=== PATIENT | male | born 1950 | race Caucasian/White ===

== ENCOUNTER 2018-10-05 09:32 | Inpatient (IN) | payer MEDICARE ==
[~2018-10-05] VITALS: Ht 177.8 cm; Wt 92.0 kg
[~2018-10-05 09:32] MED LIST: ALBU90OI6 INH; BUDE6HFA INH; CHLO10 PO; CHLO25 PO; GABA300; LORA1; [UNRECOGNIZED DRUG - OTHER]
[2018-10-05] MEDS ORDERED: ALBU90OI61 INH (10:00)
[2018-10-05] MEDS ORDERED: MELA3 PO (10:04)
[2018-10-05] MEDS ORDERED: MAGOXI400 PO (10:04)
[2018-10-05] MEDS ORDERED: STIOLTO RESPIMAT4 GM INH (10:05)
[2018-10-05] MEDS ORDERED: PRAZ1 PO ×2 (10:05→13:34)
[2018-10-05] MEDS ORDERED: VENL150ER PO (10:06)
[2018-10-05 10:10] LABS: BASOPHILS ABSOLUTE AUTO 0.01 K/mm3 (0.00-0.23); BASOPHILS PERCENT AUTO 0 % (0-2); EOSINOPHILS ABSOLUTE AUTO 0.02 K/mm3 (0.00-0.68); EOSINOPHILS PERCENT AUTO 0 % (0-6); Hematocrit 42.1 % (37.0-53.0); Hemoglobin 15.5 g/dL (13.5-17.5); IMMATURE GRAN ABSOLUTE AUTO 0.05 K/mm3 (0.00-0.10); IMMATURE GRAN PERCENT AUTO 1 % (0-1); LYMPHOCYTES ABSOLUTE AUTO 0.72 K/mm3 (0.84-5.20); LYMPHOCYTES PERCENT AUTO 9 % (21-46); MONOCYTES ABSOLUTE AUTO 0.82 K/mm3 (0.16-1.47); MONOCYTES PERCENT AUTO 10 % (4-13); Mean Corpuscular HGB 33.5 pg (26.0-34.0); Mean Corpuscular HGB Conc 36.8 g/dL (31.5-36.5); Mean Corpuscular Volume 91 fL (80-100); Mean Platelet Volume 11.6 fL (9.1-12.4); NEUTROPHILS ABSOLUTE AUTO 6.26 K/mm3 (1.96-9.15); NEUTROPHILS PERCENT AUTO 80 % (41-73); Platelet Count 111 K/mm3 (150-400); RDW Coefficient Variation 11.9 % (11.7-14.2); RDW Standard Deviation 39.8 fL (35.1-46.3); Red Blood Cell Count 4.63 M/mm3 (4.30-5.90); White Blood Cell Count 7.88 K/mm3 (4.00-11.30)
[2018-10-05 10:37] LABS: Alanine Aminotransfer (ALT/SGP 81 U/L (12-78); Albumin, Blood 3.1 g/dL (3.4-5.0); Albumin/Globulin Ratio 1.2 (0.8-1.8); Alk Phos 64 U/L (50-136); Anion Gap 19 mmol/L (6-16); Aspartate Aminotrans (AST/SGOT 96 U/L (12-37); Bilirubin, Total 1.1 mg/dL (0.1-1.0); Blood Urea Nitrogen 10 mg/dL (8-24); Bun/Creatinine Ratio 13.5 (12.0-20.0); CO2, Blood 19 mmol/L (21-32); Calcium, Blood 8.3 mg/dL (8.5-10.1); Chloride, Blood 80 mmol/L (98-108); Creatinine, Blood 0.74 mg/dL (0.60-1.20); Globulin, Blood 2.6 g/dL (2.2-4.0); Glomerular Filtration Rate >60 (60-); Glucose, Blood 100 mg/dL (70-99); Potassium, Blood 4.1 mmol/L (3.5-5.5); Sodium, Blood 118 mmol/L (136-145); Total Protein, Blood 5.7 g/dL (6.4-8.2)
[2018-10-05 13:32] LABS: Troponin I <0.015 ng/mL (0.000-0.040)
[2018-10-05] MEDS ORDERED: B-1100 MG PO (13:33)
[2018-10-05 13:34] LABS: Thyroid Stimulating Hormone 0.938 uIU/mL (0.360-4.800)
[2018-10-05] MEDS ORDERED: IBUP600 PO (13:34)
[2018-10-05 13:40] LABS: Anion Gap 19 mmol/L (6-16); Blood Urea Nitrogen 9 mg/dL (8-24); Bun/Creatinine Ratio 13.3 (12.0-20.0); CO2, Blood 20 mmol/L (21-32); Chloride, Blood 80 mmol/L (98-108); Creatinine, Blood 0.68 mg/dL (0.60-1.20); Glomerular Filtration Rate >60 (60-); Glucose, Blood 162 mg/dL (70-99); Potassium, Blood 3.7 mmol/L (3.5-5.5); Sodium, Blood 119 mmol/L (136-145)
[2018-10-05 17:12] LABS: Anion Gap 14 mmol/L (6-16); Blood Urea Nitrogen 8 mg/dL (8-24); Bun/Creatinine Ratio 13.7 (12.0-20.0); CO2, Blood 20 mmol/L (21-32); Calcium, Blood 7.7 mg/dL (8.5-10.1); Chloride, Blood 83 mmol/L (98-108); Creatinine, Blood 0.58 mg/dL (0.60-1.20); Glomerular Filtration Rate >60 (60-); Glucose, Blood 192 mg/dL (70-99); Potassium, Blood 3.7 mmol/L (3.5-5.5); Sodium, Blood 117 mmol/L (136-145)
[2018-10-05] MEDS ORDERED: STRIVERDI RESPIM4 GM INH (17:14)
--- NOTE | 2018-10-05 18:44 | NUR ---
SHIFT SUMMARY Assumed care of pt upon arrival to unit at 1445. Pt arrived to unit accompanied by emergency RN. Pt transferred from ED gurney to PCU bed with one person assist. Tolerated activity well. Pt states he is having pain. HR elevated, averaging between 125 and 135. Pain meds per orders. Cardizem per orders. Pt is forgetful and requires reeducation and reinforcement before he understands. Pt answered questions for admission. States he lives at "[facility] in [place]." States he receives medications from [facility]. Records requested from [facility] for imaging studies and current prescribed medications. Medications received. No imagaging reports received from [facility]. Pt states he drinks "Three 40 oz beers a day". States has last drink was at 9 am. Pt states he has been "surviving off beer" for the last two weeks, as he has not been able to tolerate food or drink due to abdominal pain. Pt states he has not had a bowel movement in several days, and estimates it may have been "8 or 9 days" since last BM. Call placed to Dr Mark due to critical low sodium. Also clarified order for IV diltiazem as it was ordered as a scheduled medication instead of PRN. Discussed pain control with provider. New orders given. Pt has been on room air since arrival to unit. Atrial fibrillation per telemetry, with rate now averaging between 115 and 125. Pt has not been OOB since arrival to unit. Bed in lowest position. Call light in reach. Bed alarm on. Will continue to closely monitor until care handoff and bedside report with oncoming RN.
--- NOTE | 2018-10-05 18:53 | NUR ---
NPO Pt has been NPO except for ice chips. Tolerating ice chips well at this time.
--- NOTE | 2018-10-05 21:09 | NUR ---
PM NOTE. ASSUMED CARE OF PT APROX 1900, PT IS A&Ox2, PT UNABLE TO STATE THE DATE. PT WAS ADDMITTED FOR AFIB RVR AND ALSO HAS PANCREATITIS DUE TO ETOH ABUSE. PT STATES HE IS HAVING A 7/10 ABD PAIN, PT WAS MEDICATED PER EMAR AT 1814 BUT PT STATED THAT THIS WORE OFF BEFORE HE WAS DUE FOR ANOTHER DOSE. CALLED PROVIDER TO CHANGE FREQUENCY. TELE INTACT, AFIB 100'S-120'S. PT'S BP 171/101. PT HAS TRACE EDEMA TO HIS BLLE. L/S CLEAR T/O AND DIM IN THE BASES. PT IS ON RA W/O2 SATS >92%. BT PRESENT AND HYPOACTIVE, ABD IS MOD DISTENDED, FIRM AND VERY TENDER TO PALP IN ALL QUADRANTS, PT STATED HE HAS NOT HAD A BM IN 8-9 DAYS. PT'S CURRENT CWIA IS 14, PT WAS MEDICATED PER EMAR. WILL CONTINUE TO MONITOR.
[2018-10-05 23:51] LABS: Anion Gap 11 mmol/L (6-16); Blood Urea Nitrogen 7 mg/dL (8-24); CO2, Blood 24 mmol/L (21-32); Calcium, Blood 7.1 mg/dL (8.5-10.1); Chloride, Blood 84 mmol/L (98-108); Creatinine, Blood 0.64 mg/dL (0.60-1.20); Glomerular Filtration Rate >60 (60-); Glucose, Blood 223 mg/dL (70-99); Potassium, Blood 3.4 mmol/L (3.5-5.5); Sodium, Blood 119 mmol/L (136-145)
--- NOTE | 2018-10-06 06:17 | NUR ---
SHIFT SUMMARY. PT HAS BEEN TREATED FOR ETOH W/D AND PANCREATITIS PAIN PER EMAR. PT HAS BEEN HYPERTENSIVE AND HIS HR HAS BEEN ELEVATED DUE TO AFIB RVR. PT HAS BEEN MEDICATED PER EMAR WITH LITTLE RESULTS IN REGARDS TO HIS BP. PROVIDER WAS CALLED MULTIPLE TIMES FOR ORDERS FOR HR AND BP. PT WAS MEDICATED PER EMAR. CURRENTLY PT'S BP IS 139/94, HR 114. PT HAS BEEN INCONT OF URINE MULITPLE TIMES THIS SHIFT. CALL LIGHT IN REACH, BED IS LOCKED AND LOW WILL CONTINUE TO MONITOR UNTIL REPORT IS GIVEN TO ONCOMING RN.
[2018-10-06 08:20] LABS: BASOPHILS ABSOLUTE AUTO 0.01 K/mm3 (0.00-0.23); BASOPHILS PERCENT AUTO 0 % (0-2); EOSINOPHILS PERCENT AUTO 0 % (0-6); Hematocrit 42.3 % (37.0-53.0); Hemoglobin 15.7 g/dL (13.5-17.5); IMMATURE GRAN ABSOLUTE AUTO 0.05 K/mm3 (0.00-0.10); IMMATURE GRAN PERCENT AUTO 1 % (0-1); LYMPHOCYTES ABSOLUTE AUTO 0.52 K/mm3 (0.84-5.20); LYMPHOCYTES PERCENT AUTO 6 % (21-46); MONOCYTES ABSOLUTE AUTO 0.85 K/mm3 (0.16-1.47); MONOCYTES PERCENT AUTO 10 % (4-13); Mean Corpuscular HGB 33.1 pg (26.0-34.0); Mean Corpuscular HGB Conc 37.1 g/dL (31.5-36.5); Mean Corpuscular Volume 89 fL (80-100); Mean Platelet Volume 11.6 fL (9.1-12.4); NEUTROPHILS ABSOLUTE AUTO 6.92 K/mm3 (1.96-9.15); NEUTROPHILS PERCENT AUTO 83 % (41-73); NRBC ABSOLUTE 0.02 K/mm3 (0.00-0.02); NRBC Auto 0.2 /100 WBC (0.0-0.2); Platelet Count 109 K/mm3 (150-400); RDW Standard Deviation 39.2 fL (35.1-46.3); Red Blood Cell Count 4.75 M/mm3 (4.30-5.90); White Blood Cell Count 8.35 K/mm3 (4.00-11.30)
[2018-10-06 08:42] LABS: Alanine Aminotransfer (ALT/SGP 63 U/L (12-78); Albumin, Blood 2.7 g/dL (3.4-5.0); Albumin/Globulin Ratio 1.1 (0.8-1.8); Alk Phos 59 U/L (50-136); Anion Gap 11 mmol/L (6-16); Aspartate Aminotrans (AST/SGOT 66 U/L (12-37); Bilirubin, Total 1.4 mg/dL (0.1-1.0); Blood Urea Nitrogen 7 mg/dL (8-24); Bun/Creatinine Ratio 13.8 (12.0-20.0); CO2, Blood 23 mmol/L (21-32); Calcium, Blood 7.5 mg/dL (8.5-10.1); Chloride, Blood 87 mmol/L (98-108); Creatinine, Blood 0.51 mg/dL (0.60-1.20); Globulin, Blood 2.5 g/dL (2.2-4.0); Glomerular Filtration Rate >60 (60-); Glucose, Blood 145 mg/dL (70-99); Sodium, Blood 121 mmol/L (136-145); Total Protein, Blood 5.2 g/dL (6.4-8.2); Troponin I <0.015 ng/mL (0.000-0.040)
[2018-10-06 10:48] LABS: International Normalized Ratio 1.01; Prothrombin Time Results 10.7 Sec (9.7-11.5)
[2018-10-06 16:11] LABS: Anion Gap 8 mmol/L (6-16); Blood Urea Nitrogen 6 mg/dL (8-24); Bun/Creatinine Ratio 9.4 (12.0-20.0); CO2, Blood 25 mmol/L (21-32); Calcium, Blood 7.5 mg/dL (8.5-10.1); Chloride, Blood 88 mmol/L (98-108); Creatinine, Blood 0.64 mg/dL (0.60-1.20); Glomerular Filtration Rate >60 (60-); Glucose, Blood 162 mg/dL (70-99); Potassium, Blood 3.6 mmol/L (3.5-5.5); Sodium, Blood 121 mmol/L (136-145)
--- NOTE | 2018-10-06 19:45 | NUR ---
Called to meet with patient he is feeling isolated and expresses some fear. Pt tremulous , belching and photosensitive, He denies startle response. He is able to express some of his needs but repeats himself. Pt chest is flushed. He states he fears vomiting and that he is getting worse. Review strategies of care with nursing. pt states sleeping more but wakes up frequently. Nursing will update CIWA scoring and consider polypharmacy withdrawl care. May need additional nasuea meds and increased dose or frequency on PRN meds. May need ICU care.
--- NOTE | 2018-10-06 22:01 | NUR ---
SHIFT SUMMARY Pt slept for majority of shift. HR and response to IV push cardizem discussed with Dr Mark this morning. Cardizem drip ordered by provider. This afternoon, this RN called Dr Mark and discussed heart rate and cardizem titration. Telephone order given for cardiology consultation. This RN called Dr Redd at 1715 to notify, however provider was no longer available for routine consultation. Consult notified to Olga at answering service. Bedside report given to Mignon FAM.
--- NOTE | 2018-10-06 22:18 | NUR ---
PM NOTE. ASSUMED CARE OF PT APROX 1900, PT IS A&O TO SELF AND KNOWS HE IS IN THE HOSPTIAL, PT UNABLE TO STATED THE DATE/YEAR. PT'S ETOH CWIA'S HAVE INCREASED FROM PREVIOUS SHIFT. PALLIATIVE CARE RN VISITED PT TO PROVIDE EMOTIONAL SUPPROT AND ANXIETY RELIEF, PT'S ANXIETY WAS VERY HIGH AT THE TIME AND PT WAS UNABLE TO HOLD A CONVERSATION, THIS RN MEDICATED PT PER EMAR/CWIA PROTOCOL, PT'S CWIA WAS 22. THIS APPEARED TO HELP PT'S ANXIETY AND ALLOW PT TO RELAX AND FALL SLEEP. TELE INTACT, AFIB IN THE 110'S-120'S PT CURRENTLY ON CARDIZEM GTT AT 15ML/HR, WILL TITRATE HR INDICATES. PT'S BP 146/88. NO EDEMA NOTED ON ASSESSMENT. L/S DIM T/O PT IS ON 3L NC AT 96%, PT IS NORMALLY ON RA AT HOME, WILL MONITOR AND TITRATE O2 SATS ALLOW. BT PRESENT AND HYPOACTIVE, ABD IS MOD DISTENDED SLIGHTLY FIRM AND TENDER TO PALP, PT STATES THE PAIN IS "NOT BAD LAST NIGHT." CALL LIGHT IN REACH, BED IS LOCKED AND LOW WILL CONTINUE TO MONITOR.
[2018-10-06 23:41] LABS: Anion Gap 8 mmol/L (6-16); Blood Urea Nitrogen 5 mg/dL (8-24); Bun/Creatinine Ratio 8.3 (12.0-20.0); CO2, Blood 25 mmol/L (21-32); Calcium, Blood 7.1 mg/dL (8.5-10.1); Chloride, Blood 94 mmol/L (98-108); Glomerular Filtration Rate >60 (60-); Glucose, Blood 138 mg/dL (70-99); Potassium, Blood 3.7 mmol/L (3.5-5.5); Sodium, Blood 127 mmol/L (136-145)
--- NOTE | 2018-10-07 03:15 | NUR ---
PT UPDATE. DURING ROUNDING THIS RN NOTED THAT PT'S WORK OF BREATHING HAD INCREASED AND UPPER AIRWAY WHEEZING WAS NOTED. RESPIRATORY ASSESSMENT WAS DONE AND RT WAS CALLED. NEW CRACKELS IN THE LOWER AND RIGHT MID BASE WERE NOTED. PT IS ON 2LNC AT 94%, BREATHING TREATMENT WAS GIVEN TO PT. ALSO IT WAS NOTED THAT THE PT'S ARMS AND HANDS WERE MOTTLING AND COOL, WARM BLANKETS WERE WRAPPED AROUND PT'S ARMS/HANDS. WILL CONTINUE TO MONITOR.
--- NOTE | 2018-10-07 06:49 | NUR ---
SHIFT SUMMARY. PT HAS BEEN MEDICATED FOR PAIN AND CWIA PER EMAR/PROTOCOL ORDERS. PT HAS SLEPT WELL T/O SHIFT. PT WILL C/O OF 10/10 PAIN WITH EYES CLOSED AND BEING UNABLE TO OPEN THEM, PT WILL ALSO C/O OF SEVERE ANXIETY WHILE FALLING ASLEEP TALKING TO STAFF. PT HAS BEEN INCONT OF URINE ALL SHIFT. PT'S WORK OF BREATHING HAS INCREASED, COARSE CRACKLES ARE HEARD IN THE PT'S LOWER LOBES AND EXP WHEEZES IN THE UPPER LOBES AND UPPER AIRWAY/GLOTTIC WHEEZES WELL. PT IS ON 1-2 L TO KEEP O2 SATS >90%. PT IS ON CARDIZEM GTT AT 15MLS/HR, HR IN THE 90'S-100'S. PT HAS NS RUNNING AT 100MLS/HR. PT'S SECRETIONS HAVE INCREASED FROM PREVIOUS SHIFT, PT HAS WEAK COUGH AND IS UNABLE TO COUGH THEM UP/OUT AT TIMES. CALL LIGHT IN REACH, BED IS LOCKED AND LOW WILL CONTINUE TO MONITOR UNTIL REPORT IS GIVEN TO ONCOMIGN RN .
[2018-10-07 08:22] LABS: BASOPHILS ABSOLUTE AUTO 0.02 K/mm3 (0.00-0.23); BASOPHILS PERCENT AUTO 0 % (0-2); EOSINOPHILS ABSOLUTE AUTO 0.01 K/mm3 (0.00-0.68); EOSINOPHILS PERCENT AUTO 0 % (0-6); Hematocrit 44.8 % (37.0-53.0); Hemoglobin 15.4 g/dL (13.5-17.5); IMMATURE GRAN ABSOLUTE AUTO 0.07 K/mm3 (0.00-0.10); IMMATURE GRAN PERCENT AUTO 1 % (0-1); LYMPHOCYTES ABSOLUTE AUTO 0.61 K/mm3 (0.84-5.20); LYMPHOCYTES PERCENT AUTO 6 % (21-46); MONOCYTES ABSOLUTE AUTO 1.18 K/mm3 (0.16-1.47); MONOCYTES PERCENT AUTO 12 % (4-13); Mean Corpuscular HGB 32.8 pg (26.0-34.0); Mean Corpuscular HGB Conc 34.4 g/dL (31.5-36.5); Mean Platelet Volume 11.6 fL (9.1-12.4); NEUTROPHILS ABSOLUTE AUTO 8.02 K/mm3 (1.96-9.15); NEUTROPHILS PERCENT AUTO 81 % (41-73); NRBC ABSOLUTE 0.03 K/mm3 (0.00-0.02); NRBC Auto 0.3 /100 WBC (0.0-0.2); Platelet Count 113 K/mm3 (150-400); RDW Coefficient Variation 12.6 % (11.7-14.2); RDW Standard Deviation 44.4 fL (35.1-46.3); Red Blood Cell Count 4.69 M/mm3 (4.30-5.90); White Blood Cell Count 9.91 K/mm3 (4.00-11.30)
[2018-10-07 08:24] LABS: Mean Corpuscular Volume 96 fL (80-100)
[2018-10-07 08:56] LABS: Anion Gap 8 mmol/L (6-16); Blood Urea Nitrogen 8 mg/dL (8-24); Bun/Creatinine Ratio 12.2 (12.0-20.0); CO2, Blood 23 mmol/L (21-32); Calcium, Blood 7.6 mg/dL (8.5-10.1); Chloride, Blood 95 mmol/L (98-108); Creatinine, Blood 0.66 mg/dL (0.60-1.20); Glomerular Filtration Rate >60 (60-); Glucose, Blood 131 mg/dL (70-99); Potassium, Blood 4.2 mmol/L (3.5-5.5); Sodium, Blood 126 mmol/L (136-145)
--- NOTE | 2018-10-07 10:42 | NUR ---
ECHOCARDIOGRAM COMPLETED
--- NOTE | 2018-10-07 10:51 | NUR ---
BEGINING OF SHIFT: ASSUMED CARE OF PT AT 0700, RECEIVED REPORT FROM EMILY FAM. UPON ENTERING ROOM PT WAS LETHARGIC, HOWEVER, HE RESPONDED TO VERBAL STIMULI. PT LUNG SOUNDS WERE DIMINISHED AND WAS ON 1 L OF 02 WITH OXYGEN SATURATION ABOVE 90%. PT IS ON STRICT NPO STATUS AND ORAL MEDICATIONS WERE SWITCHED TO IV, DUE TO THE INCREASE IN LIPASE LEVELS. PT WAS AMBULATED TO CHAIR, WHICH REQUIRED 3 PERSON MAX ASSIST. PT WAS UNABLE TO FOLLOW DIRECTIONS WELL, AND COMPLAINED OF NAUSEA AFTER TRANSFER. ZOFRAN WAS GIVEN SHORTLY AFTER AND PT STATED THAT HIS NAUSEA HAD BEEN RESOLVED. PT EXPERIENCED DYSPNEA WITH EXCERTION AND REQUESTED TO HAVE A BREATHING TX. PT IS CURRENTLY DENYING AN PAIN AT THIS TIME AND HAS REQUIRED NO PAIN MEDS THIS MORNING. PT IS STILL ON THE CARIDEM DRIP AND IS RUNNING AFIB WITH HR AVERAGING BETWEEN 80-90 BPM. PT BP HAS REMAINED STABLE. WILL CONTINUE TO MONITOR FOR CHANGES.
--- NOTE | 2018-10-07 15:53 | NUR ---
Spiritual care visit attempted. Upon receiving a referral for patient, I attempted to visit. Patient was sleeping and could not be awakened any longer then for him to ask me to come back later. I will continue to remain available to patient and family.
--- NOTE | 2018-10-07 18:02 | NUR ---
END OF SHIFT: PT HAS BEEN GETTING MORE CONFUSED IN THE PAST HOUR. PT STATES " I NEED TO GET TO A HOSPITAL". ATTEMPTED TO REORIENTED PT WHICH WAS UNSUCCESSFUL. PT B/P REMAINS WITHIN NORMAL LIMITS. PT IS CURRENTLY IN A-FIB WITH HR RUNNING IN THE 90'S PER FOUNDRY PATTERNMAKER. EARLY IN THE SHIFT PT WAS ON 10 gtt ON A CARDIZEM DRIP FOR A FEW HOURS WITH HR IN THE 70'S. HOWEVER, PT IS NEEDING TO BE TURNED UP TO 15 gtt DUE TO HR INCREASING TO THE 90'S. PT IS ON 1.5 LITERS OF 02 VIA NC AND COMPLANING OF BEING SOB, HOWEVER 02 STAURATION REMAIN AT ABOVE 95% PT IS DENYING ANY PAIN AT THIS TIME. PT WAS EVALUATED BY PHYSICAL THERPAY TODAY, WHICH PLACED HIM A LIFT PT. PT HAS BEEN INCONTINENT DURING SHIFT AND HAS BEEN TRYING TO GET OUT OF BED. PT STATES " I NEED MEDICATION FOR MY ANXIEY". WILL MEDICATE PER EMAR. WILL CONTINUE TO MONITOR UNTIL REPORT IS GIVEN TO ONCOMING SHIFT. BED AT LOWEST LEVEL, BED ALARM ON, CALL LIGHT WITHIN REACH.
--- NOTE | 2018-10-07 18:56 | NUR ---
CARDIZEM DRIP Cardizem titration done by this RN. At this time, pt is on 15 mg/hr of cardizem.
[2018-10-08 04:18] LABS: BASOPHILS ABSOLUTE AUTO 0.02 K/mm3 (0.00-0.23); BASOPHILS PERCENT AUTO 0 % (0-2); EOSINOPHILS PERCENT AUTO 0 % (0-6); Hematocrit 37.9 % (37.0-53.0); Hemoglobin 13.1 g/dL (13.5-17.5); IMMATURE GRAN ABSOLUTE AUTO 0.06 K/mm3 (0.00-0.10); IMMATURE GRAN PERCENT AUTO 1 % (0-1); LYMPHOCYTES ABSOLUTE AUTO 0.49 K/mm3 (0.84-5.20); LYMPHOCYTES PERCENT AUTO 5 % (21-46); MONOCYTES ABSOLUTE AUTO 1.34 K/mm3 (0.16-1.47); MONOCYTES PERCENT AUTO 14 % (4-13); Mean Corpuscular HGB 33.2 pg (26.0-34.0); Mean Corpuscular HGB Conc 34.6 g/dL (31.5-36.5); Mean Corpuscular Volume 96 fL (80-100); Mean Platelet Volume 11.4 fL (9.1-12.4); NEUTROPHILS ABSOLUTE AUTO 8.01 K/mm3 (1.96-9.15); NEUTROPHILS PERCENT AUTO 81 % (41-73); Platelet Count 103 K/mm3 (150-400); RDW Coefficient Variation 12.8 % (11.7-14.2); RDW Standard Deviation 45.5 fL (35.1-46.3); Red Blood Cell Count 3.95 M/mm3 (4.30-5.90); White Blood Cell Count 9.92 K/mm3 (4.00-11.30)
[2018-10-08 04:40] LABS: Alanine Aminotransfer (ALT/SGP 51 U/L (12-78); Albumin, Blood 2.3 g/dL (3.4-5.0); Albumin/Globulin Ratio 0.9 (0.8-1.8); Alk Phos 58 U/L (50-136); Anion Gap 6 mmol/L (6-16); Aspartate Aminotrans (AST/SGOT 43 U/L (12-37); Bilirubin, Total 0.8 mg/dL (0.1-1.0); Blood Urea Nitrogen 10 mg/dL (8-24); CO2, Blood 25 mmol/L (21-32); Calcium, Blood 7.4 mg/dL (8.5-10.1); Chloride, Blood 98 mmol/L (98-108); Creatinine, Blood 0.62 mg/dL (0.60-1.20); Globulin, Blood 2.7 g/dL (2.2-4.0); Glomerular Filtration Rate >60 (60-); Glucose, Blood 130 mg/dL (70-99); Potassium, Blood 4.3 mmol/L (3.5-5.5); Sodium, Blood 129 mmol/L (136-145)
--- NOTE | 2018-10-08 06:47 | NUR ---
SHIFT SUMMARY PATIENT REMAINED STABLE DURING EVP HEAD OF [employer] EXPERIENCE STRATEGY, PATIENT RESPOND TO PAIN AND VERBAL STIMULI. REMAINED ON AFIB WITH HEART RATE ON HIGH 70'S TO LOW 80'S. CLEAR ON UPPER LOBES AND DIMINISHED ON LOWER LOBES,OCCATIONAL COUGH, BED LOCK AND LOW POSITION, CALL LIGHT WITHIN REACH.
--- NOTE | 2018-10-08 17:01 | NUR ---
PT HAS BEEN A/O X4 SINCE BEING TRANSFERED TO OUR FLOOR AT 1555. BP'S HAVE BEEN APROXIMATELY 80'S OVER 50'S SINCE SURGERY AT 1300, PT IS NOT SYMPTOMATIC, NO LIGHTHEADEDNESS OR NO DIZZYNESS. PT'S PAIN HAS BEEN MINIMAL WITH REST, AND A 5 WITH MOVEMENT. FINE WHEEZES WITH EXPIRATION ON LEFT SIDE, RIGHT SIDE CLEAR. O2 SATURATION 94% WITH 1.5L. BED IN LOWEST POSITON, CALL LIGHT IN REACH, PT ORIENTED TO SAFETY PROTOCOL.
--- NOTE | 2018-10-08 18:29 | NUR ---
PT HAS BEEN LETHARGIC BUT ALERT AND ORIENTED ALL DAY, WITH BOUTS OF CONFUSION. PT HAS BEEN WITHOUT A DRINK SINCE 10/05/18 AT 9AM. AROUND 2PM PT BEGAN LOOKING FOR ALCOHOL, AND CIWA GOT ABOVE 8 FOR THE FIRST TIME, PT WAS GIVEN 1MG OF ATIVAN AND IS ALLOWED TO HAVE 1 BEER WITH EACH MEAL. PT ASKED FOR HIS FIRST DOSE OF FENTANYL AT 1730, OTEHRWISE PT HAS BEEN PAIN FREE. DOING Q2 TURNS TO PREVENT BREAKDOWN. PT WAS STARTED ON ORAL METOPROLOL AND TITRATED OFF THE CARDIZEM DRIP AT 1800, HAS BEEN IN THE 80'S MOST OF THE DAY. BED IN LOWEST POSITION, CALL LIGHT IN REACH, PT ORIENTED TO SAFETY PROTOCOL.
--- NOTE | 2018-10-09 06:14 | NUR ---
SHIFT SUMMARY: PATIENT REMAINES STABLE THROUGHT THE SHIFT, REMAINED ON AFIB WITH HEART RATE OF 95. PRODUCTIVE COUGH WITH GREEN SPUTUM, BED LOCK, LOW IN POSITION AND CALL LIGHT WITHIN REach.
--- NOTE | 2018-10-09 16:55 | NUR ---
PT VERY SOMNOLENT BUT AROUSABLE WITH VERBAL INITIATION. PT HAS BEEN REPOSITIONED EVERY TWO HOURS TO PREVENT SKIN BREAKDOWN, CURRENTLY HAS REDNESS ON BUTTOCKS, ABLE TO CATHY. PT IS INCONTINENT. PT'S CIWA HAS BEEN BELOW 8 ALL DAY, FREE OF HALLUCINATIONS, DELUSIONS, VOICES, IRRITATION TO LIGHT, BUT OVERALL PRESENTATION IS DECONDITIONING. CRACKLES IN LUNGS HAVE BEEN GETTING WORSE EVEN WITH TCDB, PO LASIX, AND IS. PT WAS GIVEN METOPROLOL AT 1100, HEART RATE HAS BEEN IN THE 110'S TO 120'S SINCE 1430, DR NOTIFIED. DR. MARCIAL ORDERED IV LASIX 40MG BID. PT'S STRENGTH APPEARS TO BE DECONDITIONING WITH LIMITED MOVEMENT. IN BED EXERCISES HAVE BEEN PERFORMED WITH STAFF. CALL LIGHT IN REACH, BED IN LOWEST POSITION, BED ALARM ON, PT ORIENTED TO SAFETY PRECAUTIONS.
--- NOTE | 2018-10-09 20:50 | NUR ---
PROVIDER CONTACTED PT WITH HEART RATE TRENDING UP, CURRENTLY SUSTAINING WITH AN AVERAGE OF 146. MICHELLE STOCKTON CONTACTED AND ORDERS RECEIVED FOR METOPROLOL 5 MG IVP NOW AND Q4 PRN FOR HR SUSTAINING 120 BPM. WILL ADMINISTER AND CONTINUE MONITORING.
[2018-10-10 04:27] LABS: Anion Gap 5 mmol/L (6-16); Blood Urea Nitrogen 17 mg/dL (8-24); Bun/Creatinine Ratio 25.9 (12.0-20.0); CO2, Blood 34 mmol/L (21-32); Calcium, Blood 8.1 mg/dL (8.5-10.1); Chloride, Blood 95 mmol/L (98-108); Creatinine, Blood 0.66 mg/dL (0.60-1.20); Glomerular Filtration Rate >60 (60-); Glucose, Blood 135 mg/dL (70-99); Magnesium, Blood 2.2 mg/dL (1.6-2.4); Potassium, Blood 4.1 mmol/L (3.5-5.5); Sodium, Blood 134 mmol/L (136-145)
--- NOTE | 2018-10-10 06:14 | NUR ---
SHIFT SUMMARY- PT HAS REMAINED ABLE TO ANSWER ALL ORIENTATION QUESTIONS APPROPRIATELY, BUT CONTINUES TO HAVE SOMNOLENCE AND REQUIRES A LOT OF ENCOURAGEMENT TO STAY AWAKE FOR ASSESSMENT. PT CONTINUES TO HAVE VERY SLURRED SPEECH THAT IS DIFFICULT TO UNDERSTAND AT TIMES. PT HAS BEEN PLEASANT AND COOPERATIVE WITH CARE. HEART RHYTHM REMAINS IN A-FIB WITH A RAPID HEART RATE THAT DECREASES TEMPORARILY WITH IV LOPRESSOR BUT STEADILY INCREASES TO THE 130-140'S. ALL OTHER VITAL SIGNS STABLE. PT MEDICATED ONCE FOR PAIN TO ABDOMEN AND ONCE FOR NAUSEA THAT DECREASED WITH ORDERED MEDICATIONS. PT HAS RESTED THROUGHOUT MOST OF THE NIGHT, BUT WAKES FOR CARE AND QUICKLY FALLS BACK TO SLEEP. PT TOLERATES PILLS WHOLE IN APPLESAUCE. TOLERATES SIPS OF FLUIDS WITHOUT STRAW WELL. REMAINS INCONTINENT OF URINE THROUGHOUT SHIFT. NO OTHER CHANGES NOTED FROM INITIAL ASSESSMENT. WILL CONTINUE TO MONITOR AND REPORT TO ONCOMING SHIFT RN. BED IN LOW POSITION, CALL LIGHT IN REACH. BED ALARM SET FOR SAFETY.
--- NOTE | 2018-10-10 11:20 | NUR ---
Spiritual care visit conducted. Patient is still unable to carry on much of a conversation but patient was able to answer affirmatively when asked if he would like me to pray for him. Based on the referral I received asking for help in dealing with fear of end of life, I prayed along those lines. I prayed about areas of forgiveness, Gods love and acceptance and about peace. Patient responded well and said, "Thanks" after the prayer. I will continue to remain available to patient and family.
--- NOTE | 2018-10-10 15:44 | NUR ---
AFIB ON TELEMETRY RATE 140s-160s. IV METOPROLOL GIVEN WITH MINIMAL RESPONSE. ADDITIONAL DOSE OF PO METOPROLOL GIVEN. RATE CONTINUES TO STAY 130s-160s. DR. MARCIAL NOTIFIED, ORDER FOR AMIODARONE GIVEN. AMIODARONE BOLUS AND GTT INITIATED. PT CONTINUES TO BE SOMNOLENT, BUT AROUSES TO VERBAL STIMULI. NEW IV PLACED BY AD FAM. CONTINUES TO BE TACHYPNEIC WITH SHALLOW RESPIRATIONS. WEAK COUGH NOTED. OXYGEN SATURATIONS 85-89%, OXYGEN INCREASED TO 2L. PT SLOW TO RESPOND AND SLOW TO FOLLOW COMMANDS. DR. MARCIAL NOTIFIED, NEW ORDERS RECEIVED.
[2018-10-10 15:54] LABS: PCO2 Arterial 63.9 mmHg (35-45); PO2 Arterial 64.7 mmHg (80-100); pH Blood Arterial 7.39 (7.35-7.45)
--- NOTE | 2018-10-10 18:36 | NUR ---
SHIFT SUMMARY PT STARTED DAY MORE LUCID THAN HE WAS AT THE END OF SHIFT YESTERDAY. HAS BEEN ABLE TO FOLLOW COMMANDS WITH SHORT DIRECT RESPONSES, BUT PT HAS BECOME INCREASINGLY SOMNOLENT THROUGHOUT SHIFT. PT HAS BECOME MORE DIAPHORETIC, AND LUNG CR HAVE INCREASING COARSE CRACKLES THROUGHOUT. PT HAS BEEN ABLE TO TAKE PO MEDICATION WITH APPLESAUCE ALL DAY UNTIL NIGHT MEDS. PT WAS MORE SOMNOLENT AND APPEARED TO BE A SWALLOW RISK AT THIS TIME. PT WAS PLACED ON BIPAP FOLLOWING ABG WITH ELEVATED CO2. ABG WILL BE REDONE FOLLOWING 1 HOUR ON BIPAP. TELE HAS BEEN IN THE 140'S, METOPROLOL IS CURRENTLY 100MG BID, WITH IV METOPROLOL Q4PRN FOR RELIEF, 4 DOSES WERE GIVEN TODAY. PT HAS BEEN GIVEN Q2 TURNS FOR PREVENTION OF BREAKDOWN, INCONTINENT OF STOOL AND URINE, STILL ON BM, PT GIVEN 2 DOSES OF LACTULOSE TODAY. PENILE EDEMA AND GROIN REDNESS HAS IMPROVED. BUE EDEMA. CIWA SCORES HAVE BEEN BETWEEN 3-6 ALL SHIFT. BED IN LOWEST POSITION, CALL LIGHT IN REACH, PT ORIENTED MUCH POSSIBLE TO FALL PRECAUTIONS.
[2018-10-10 19:11] LABS: PCO2 Arterial 59.7 mmHg (35-45); PO2 Arterial 86.7 mmHg (80-100); pH Blood Arterial 7.42 (7.35-7.45)
--- NOTE | 2018-10-10 19:50 | NUR ---
PT ARRIVES TO ICU 12 VIA BED FROM PCU 8 FOR AFIB WITH RVR, AMS, AND DECLINING RESPIRATORY STATUS. PT IS NOTED WITH GENERALIZED MOTTLING ON TRANSFER TO ICU BED, POSTERIOR IS HOT TO TOUCH, TEMPORAL TEMP IS 101.[address] TEMP PROBE AMADOR FOR HOURLY OUPUT AND CORE TEMP MONITORING. HR NOTED 130-140S ON MONITOR, AFIB, HEART SOUNDS DISTANT, BP 129/78, PULSES DIFFICULT TO PALPATE X [address] PRESSURES 16/7, FIO2 35%, RESP RATE HIGH TEENS, TIDAL VOLUMES ON BIPAP READ NEAR 500 HOWEVER IT ALSO REGISTERS A LEAK GREATER THAN 50 LITERS/MINUTE, PT'S INSPIRATORY PHASE IS VERY SHORT AND THEN HE APPEARS TO EXHALE AGAINST BIPAP MASK CAUSING A BRIEF INCREASED LEAK, SATS ARE MID 90S, UPPER LOBES ARE CLEAR COARSE/DIM MID TO BASES BILAT. ABD DISTENDED, HYPOACTIVE BOWEL TONES, ABD SEVERELY DISTENDED, FIRM TO PALPATION BUT NO GRIMACING OR GAURDING WITH PALPATION. ATTENDS IN PLACE, INCONTINENCE OF URINE NOTED. WILL CALL MICHELLE STOCKTON NP REGARDING CURRENT PT PRESENTATION.
--- NOTE | 2018-10-10 19:54 | NUR ---
DISCUSSED CONTINUED TACHYCARDIA AND NEED FOR BIPAP WITH PROVIDER. NEW ORDERS RECEIVED. ORDER FOR TRANSFER TO ICU RECEIVED. PT ON BIPAP IN ROOM. HEART RATE CONTINUES TO BE IN THE 160s-170s. MOTTLING NOTED TO BILATERAL LEGS. CARDIZEM IV PUSH ADMINISTERED X1. HEART RATE 120s AND BP 120s/80s. REPORT CALLED TO PAT FAM IN ICU. PT TRANSFERED VIA BED ON BIPAP TO ICU12 WITH BELONGINGS.
--- NOTE | 2018-10-10 20:00 | NUR ---
TEMP PROBE AMADOR PLACED, CORE TEMP 103.6 AND CONTINUING TO INCREASE AT THIS TIME.
--- NOTE | 2018-10-10 20:10 | NUR ---
CALL PLACED TO MICHELLE STOCKTON OIL ANALYST REGARDING PT GENERALIZED MOTTLING, ELEVATED TEMP, UP TO 104 AT THIS TIME, WELL PT WITH SMALL FAINT MOAN TO DEEP STERNAL RUB OTHERWISE NONRESPONSIVE TO PAINFUL STIMULI. ORDERS RECEIVED.
[2018-10-10 20:53] LABS: BASOPHILS ABSOLUTE AUTO 0.05 K/mm3 (0.00-0.23); BASOPHILS PERCENT AUTO 1 % (0-2); EOSINOPHILS PERCENT AUTO 0 % (0-6); Hemoglobin 14.6 g/dL (13.5-17.5); IMMATURE GRAN ABSOLUTE AUTO 0.22 K/mm3 (0.00-0.10); IMMATURE GRAN PERCENT AUTO 2 % (0-1); LYMPHOCYTES ABSOLUTE AUTO 0.32 K/mm3 (0.84-5.20); LYMPHOCYTES PERCENT AUTO 4 % (21-46); MONOCYTES ABSOLUTE AUTO 1.47 K/mm3 (0.16-1.47); MONOCYTES PERCENT AUTO 16 % (4-13); Mean Corpuscular HGB 32.7 pg (26.0-34.0); Mean Corpuscular HGB Conc 32.4 g/dL (31.5-36.5); Mean Platelet Volume 10.3 fL (9.1-12.4); NEUTROPHILS PERCENT AUTO 78 % (41-73); NRBC ABSOLUTE 0.09 K/mm3 (0.00-0.02); Platelet Count 248 K/mm3 (150-400); RDW Coefficient Variation 13.6 % (11.7-14.2); RDW Standard Deviation 51.3 fL (35.1-46.3); Red Blood Cell Count 4.46 M/mm3 (4.30-5.90); White Blood Cell Count 9.16 K/mm3 (4.00-11.30)
[2018-10-10 21:08] LABS: International Normalized Ratio 1.02; Prothrombin Time Results 10.8 Sec (9.7-11.5)
[2018-10-10 21:11] LABS: Alanine Aminotransfer (ALT/SGP 70 U/L (12-78); Albumin, Blood 2.6 g/dL (3.4-5.0); Albumin/Globulin Ratio 0.6 (0.8-1.8); Alk Phos 167 U/L (50-136); Anion Gap 5 mmol/L (6-16); Aspartate Aminotrans (AST/SGOT 59 U/L (12-37); Bilirubin, Total 0.6 mg/dL (0.1-1.0); Blood Urea Nitrogen 18 mg/dL (8-24); Bun/Creatinine Ratio 20.7 (12.0-20.0); CO2, Blood 39 mmol/L (21-32); Calcium, Blood 8.9 mg/dL (8.5-10.1); Chloride, Blood 92 mmol/L (98-108); Creatinine, Blood 0.87 mg/dL (0.60-1.20); Globulin, Blood 4.7 g/dL (2.2-4.0); Glomerular Filtration Rate >60 (60-); Glucose, Blood 176 mg/dL (70-99); Potassium, Blood 4.1 mmol/L (3.5-5.5); Sodium, Blood 136 mmol/L (136-145); Total Protein, Blood 7.3 g/dL (6.4-8.2)
[2018-10-10 21:15] LABS: Mean Corpuscular Volume 101 fL (80-100)
--- NOTE | 2018-10-10 21:30 | NUR ---
HOSPITALIST MICHELLE STOCTKON NP, ARRIVES TO BEDSIDE. DISCUSSED PT CURRENT CONDITION, ORDERS FOR CARDIZEM 10 MG IV NOW.
[2018-10-10 21:50] LABS: Source, Urine Catheter
[2018-10-10 21:54] LABS: Bilirubin, Urine Neg (Neg); Blood, Urine 4+ (Neg); Color, Urine Yellow (P-Yellow); Glucose Qualitative, Urine 1+ (Neg); Ketones, Urine 2+ (Neg); Leukocyte Esterase, Urine 1+ (Neg); Nitrite, Urine Neg (Neg); Protein, Urine 3+ (Neg); Urobilinogen, Urine NORM (Normal)
--- NOTE | 2018-10-10 22:00 | NUR ---
DR CALERO ARRIVES TO BEDSIDE
[2018-10-10 22:08] LABS: U Amphetamine Screen Not Detected; U Barbituate Screen Not Detected; U Benzodiazapine Screen DETECTED; U Buprenorphine Screen Not Detected; U Cannabinoids Screen Not Detected; U Cocaine Screen Not Detected; U Methadone Screen Not Detected; U Methamphetamine Screen Not Detected; U Opiates Screen Not Detected; U Oxycodone Screen Not Detected; U Phencyclidine Screen Not Detected; U Propoxyphene Screen Not Detected
[2018-10-10 22:10] LABS: Appearance, Urine Hazy (Clear)
[2018-10-10 22:11] LABS: Bacteria Many /hpf; Red Blood Cells, Urine 0-2 /hpf (0-2); Squamous Epithelial Cells Few /hpf (Few)
--- NOTE | 2018-10-10 22:29 | NUR ---
INTUBATION FENTANYL 50 MCG IV ADMIN AT 2224 ETOMIDATE 10 MG IV ADMIN AT 2225 SUCCINYLCHOLINE 150 MG IV ADMIN AT [address] CALERO WITH 8.0 ETT AT 2228 TO 26 CM AT TEETH, PLACEMENT INITIALLY CONFIRMED WITH BILAT BREATH SOUND AUSCULTATION AND COLORMETRIC CAPNOGRAPHY. OG TUBE PLACED AT 2235, PLAN FOR LIS. PT PLACED IN BILAT SOFT WRIST RESTRAINTS. RADIOLOGY ARRIVES AT BEDSIDE FOR PORTABLE CXR FOR LINE PLACEMENT.
[2018-10-10 23:22] LABS: PO2 Arterial 69.4 mmHg (80-100); pH Blood Arterial 7.44 (7.35-7.45)
--- NOTE | 2018-10-11 | NUR ---
DR RAO RETURNS TO BEDSIDE FOR CENTRAL LINE PLACEMENT
--- NOTE | 2018-10-11 01:00 | NUR ---
TO RADIOLOGY WITH RT AND DOUBLE END PRODUCTION GRINDER FOR ORDERED CT SCANS
--- NOTE | 2018-10-11 01:20 | NUR ---
PT RETURNS TO ROOM FROM IMAGING
[2018-10-11 05:06] LABS: Anion Gap 5 mmol/L (6-16); Blood Urea Nitrogen 23 mg/dL (8-24); Bun/Creatinine Ratio 28.5 (12.0-20.0); CO2, Blood 35 mmol/L (21-32); Calcium, Blood 7.6 mg/dL (8.5-10.1); Chloride, Blood 98 mmol/L (98-108); Creatinine, Blood 0.81 mg/dL (0.60-1.20); Glomerular Filtration Rate >60 (60-); Glucose, Blood 141 mg/dL (70-99); Potassium, Blood 3.8 mmol/L (3.5-5.5); Sodium, Blood 138 mmol/L (136-145)
--- NOTE | 2018-10-11 06:41 | NUR ---
PT TRANSFERRED TO ICU AT 1950 LAST NOC, GENERALIZED MOTTLING, NONRESPONSIVE TO PAINFUL STIMULI EXCEPT FOR SHORT FAINT MOAN WITH DEEP STERNAL RUB. AFIB WITH RVR, RATES UP TO 170S JUST PRIOR TO TRANSFER TO ICU, 130-140S AFTER TRANSFER, ELEVATED TEMP UP TO 104.3. HOSPITALIST SERVICE NOTIFIED AND BOTH DR CALERO AND MICHELLE STOCKTON BINDERY TECHNICIAN ARRIVED TO BEDSIDE FOR PT EVALUATION. PT WAS INTUBATED AT 2229 THIS SHIFT, PROPOFOL WAS STARTED SECONDARY TO HIGH PRESSURE ALARMS ON VENT AND FREQUENT GAGGING, PT IS ABLE TO TOLERATE VENT WELL WITH PROPOFOL AT 15 MCG/KG/MIN, NO SPONTANEOUS MOVEMENT OF EXTREMITIES HAS BEEN NOTED THIS SHIFT. CARDIZEM IVP AND GTT WAS INITIATED BRIEFLY, DC'D SECONDARY TO HYPOTENSION HOWEVER PT'S HEART RATE HAS CONTINUED TO IMPROVE THIS SHIFT DOWN TO 110-120S AT THIS TIME. NS 1500 ML TOTAL BOLUS FOR HYPOTENSION, PT CONTINUES WITH SBP LESS THAN 100 FREQUENTLY HOWEVER DOES CONTINUE TO MAINTAIN MAP GREATER THAN 65, DISCUSSED THIS WITH DR CALERO AT 0600 THIS AM, NO NEW BOLUS ORDERS AT THAT TIME.
--- NOTE | 2018-10-11 16:26 | NUR ---
PT HAD 27 BEAT RUN OF V-TACH. DR. DEGE NOTIFIED. RECEIVED ORDER FOR 2GM MAGNESIUM.
--- NOTE | 2018-10-11 18:29 | NUR ---
SHIFT SUMMARY: PT ON PROPROFOL 15. VENT SETTINGS AT AC 16/450 FI02 AT 30% WITH A PEEP OF 5. PT HAS BEEN AFIBRILE THROUGHOUT SHIFT. PT IS NOT SHOWING RESPONSE TO PAINFUL STIMULI. THICK, COKER SECRETIONS SUCTIONED THROUGHOUT SHIFT. PT STARTED ON TUBE FEEDING TODAY. PT HAD EPPISODE OF VTACH, THAT RESOLVED WITHIN A FEW SECONDS. DR. EDGE NOTIFIED AND NO FUTURE EPPISODES OCCURED.
[2018-10-11 20:31] LABS: Vancomycin, Trough 9.8 ug/mL (5.0-10.0)
[2018-10-12 03:47] LABS: BASOPHILS ABSOLUTE AUTO 0.01 K/mm3 (0.00-0.23); BASOPHILS PERCENT AUTO 0 % (0-2); EOSINOPHILS ABSOLUTE AUTO 0.07 K/mm3 (0.00-0.68); EOSINOPHILS PERCENT AUTO 1 % (0-6); Hematocrit 31.4 % (37.0-53.0); Hemoglobin 10.4 g/dL (13.5-17.5); IMMATURE GRAN ABSOLUTE AUTO 0.31 K/mm3 (0.00-0.10); IMMATURE GRAN PERCENT AUTO 4 % (0-1); LYMPHOCYTES ABSOLUTE AUTO 0.97 K/mm3 (0.84-5.20); LYMPHOCYTES PERCENT AUTO 12 % (21-46); MONOCYTES ABSOLUTE AUTO 0.76 K/mm3 (0.16-1.47); MONOCYTES PERCENT AUTO 10 % (4-13); Mean Corpuscular HGB 32.6 pg (26.0-34.0); Mean Corpuscular HGB Conc 33.1 g/dL (31.5-36.5); Mean Platelet Volume 10.4 fL (9.1-12.4); NEUTROPHILS ABSOLUTE AUTO 5.75 K/mm3 (1.96-9.15); NEUTROPHILS PERCENT AUTO 73 % (41-73); NRBC ABSOLUTE 0.05 K/mm3 (0.00-0.02); NRBC Auto 0.6 /100 WBC (0.0-0.2); Platelet Count 175 K/mm3 (150-400); RDW Coefficient Variation 13.7 % (11.7-14.2); RDW Standard Deviation 49.4 fL (35.1-46.3); Red Blood Cell Count 3.19 M/mm3 (4.30-5.90); White Blood Cell Count 7.87 K/mm3 (4.00-11.30)
[2018-10-12 03:48] LABS: Mean Corpuscular Volume 98 fL (80-100)
[2018-10-12 04:03] LABS: Albumin, Blood 3.1 g/dL (3.4-5.0); Anion Gap 7 mmol/L (6-16); Blood Urea Nitrogen 22 mg/dL (8-24); CO2, Blood 33 mmol/L (21-32); Calcium, Blood 8.1 mg/dL (8.5-10.1); Chloride, Blood 98 mmol/L (98-108); Creatinine, Blood 0.85 mg/dL (0.60-1.20); Glomerular Filtration Rate >60 (60-); Glucose, Blood 120 mg/dL (70-99); Magnesium, Blood 2.8 mg/dL (1.6-2.4); Phosphorus, Blood 2.6 mg/dL (2.5-4.9); Potassium, Blood 3.3 mmol/L (3.5-5.5); Sodium, Blood 138 mmol/L (136-145)
--- NOTE | 2018-10-12 04:22 | NUR ---
DOCTOR KELY NOTIFIED OF PATIENT HR UP TO 150'S WITH SLIGHT STIMULI AND SUSTAINING IN THE 120'S WHEN RELAXED. ORDER OBTAINED FOR CARDIZEM IV DRIP
[2018-10-12 05:46] LABS: PO2 Arterial 186 mmHg (80-100); pH Blood Arterial 7.41 (7.35-7.45)
--- NOTE | 2018-10-12 06:34 | NUR ---
SUMMARY PATIENT REMAINS INTUBATED, DURING WEAN OPENS EYES AND FOLLOWING SIMPLE DIRECTIONS. PROPOFOL RESTART AT 15MCG POST WEAN. HR UP TO 150'S DURING WEAN. CARDIZEM DRIP AT 10 TO KEEP HEAR RATE LESS THAN 120. NO FEVER T/O NIGHT. PATIENT HANDS AND KNEES MOTTLED LOOK AT TIMES DURING THE NIGHT, DIDN'T APPEAR TO CORRESPOND WITH VITALS. OG CLAMPED AT THIS TIME DUE TO PATIENT BEING GIVEN ORAL CONTRAST FOR REPEAT CT PLANED FOR 0830 TODAY.
--- NOTE | 2018-10-12 07:30 | NUR ---
ASSUMED CARE OF PATIENT; SEE ASSESSMENT CHARTING FOR DETAILS. LUNGS DIMINISHED IN BASES; COARSE BREATH SOUNDS T/O UPPER CHEST; SOME EXP. WHEEZES ALSO NOTED. REMAINS ON VENTILATOR WITH SETTINGS: A/C 16/ TV 450/ PEEP 5 AND FIO2 25%. BIOX STAYING LOW 90'S. MONITOR REMAINS ATRIAL FIB WITH RATE 90'S TO 120/MIN. SBP VARIABLE; DROPS DOWN TO 90'S. AMADOR DRAINING MODERATE AMOUNTS OF MED. YELLOW LIGHT URINE. OGT CLAMPED AT THIS TIME; NIGHT NURSE JUST COMPLETED INSTILLING CONTRAST FOR CT OF ABD. SCHEDULED FOR 08:30 THIS AM. PROPOFOL DRIP AT 15MCG/KG/MIN.; BILAT. SOFT WRIST RESTRAINTS IN PLACE TO PREVEMT SELF EXTUBATION. RIKERS' SCALE 2-3. SKIN MOTTLED TO ALL EXTREMITIES; VARIABLE.
--- NOTE | 2018-10-12 08:30 | NUR ---
TO CT SCAN VIA BED; MINI-VENT CONNECTED AND R.T. WELL RN ACCOMPANIED PATIENT ALONG WITH TECH. AND STUDENT NURSE. PATIENT ON CHASSIS WIRER.
--- NOTE | 2018-10-12 08:55 | NUR ---
RETIRMED FROM CT SCAN; TOLERATED WELL WITHOUT INCIDENT.
--- NOTE | 2018-10-12 17:49 | NUR ---
SUMMARY: NO ACTUE CHANGES; REMAINS ON PROPOFOL DRIP; CURRENT RATE 20MCG/KG/MIN. BILAT. SOFT WRIST RESTRAINTS IN PLACE TO PREVENT PULLING OF LINES OR SELF EXTUBATION. ON P/S SETTINGS EARLIER TODAY ([phone]); SEE R.T. NOTES FOR DETAILS. TV WAS GOOD THE FIRST HOUR BUT STARTED TO GET BELOW 100 THE PAST 1/2 HOUR. MOTTLING INTERMITTENT BUT NOT NOTICEABLE; VSS. SUCTIONED LARGE AMOUTNS OF ORAL AND ET SECRETIONS. WILL REPORT TO ONCOMING RN.
--- NOTE | 2018-10-12 21:00 | NUR ---
PT INTUBATED AND SEDATED WITH PROPOFOL. GRIMACES TO NOXIOUS STIMULUS. PT IS MOTTLED AROUND KNEES AND HANDS. THEY ARE WARM TO TOUCH. ON CARDIZEM GTT AT 5MG/HR. TF AT 10ML/HR WITH LITTLE RESIDUAL. SEE ASSESSMENT.
[2018-10-13 04:19] LABS: BASOPHILS ABSOLUTE AUTO 0.04 K/mm3 (0.00-0.23); BASOPHILS PERCENT AUTO 0 % (0-2); EOSINOPHILS PERCENT AUTO 1 % (0-6); Hemoglobin 10.9 g/dL (13.5-17.5); IMMATURE GRAN ABSOLUTE AUTO 0.27 K/mm3 (0.00-0.10); IMMATURE GRAN PERCENT AUTO 2 % (0-1); LYMPHOCYTES ABSOLUTE AUTO 0.66 K/mm3 (0.84-5.20); LYMPHOCYTES PERCENT AUTO 5 % (21-46); MONOCYTES PERCENT AUTO 6 % (4-13); Mean Corpuscular HGB 33.2 pg (26.0-34.0); Mean Corpuscular Volume 101 fL (80-100); Mean Platelet Volume 11.1 fL (9.1-12.4); NEUTROPHILS ABSOLUTE AUTO 12.38 K/mm3 (1.96-9.15); NEUTROPHILS PERCENT AUTO 87 % (41-73); NRBC ABSOLUTE 0.09 K/mm3 (0.00-0.02); NRBC Auto 0.6 /100 WBC (0.0-0.2); Platelet Count 189 K/mm3 (150-400); RDW Standard Deviation 51.8 fL (35.1-46.3); Red Blood Cell Count 3.28 M/mm3 (4.30-5.90); White Blood Cell Count 14.25 K/mm3 (4.00-11.30)
[2018-10-13 04:35] LABS: Albumin, Blood 2.5 g/dL (3.4-5.0); Anion Gap 7 mmol/L (6-16); Blood Urea Nitrogen 22 mg/dL (8-24); Bun/Creatinine Ratio 15.9 (12.0-20.0); CO2, Blood 30 mmol/L (21-32); Calcium, Blood 8.1 mg/dL (8.5-10.1); Chloride, Blood 102 mmol/L (98-108); Creatinine, Blood 1.38 mg/dL (0.60-1.20); Glomerular Filtration Rate 54 (60-); Glucose, Blood 126 mg/dL (70-99); Magnesium, Blood 2.9 mg/dL (1.6-2.4); Phosphorus, Blood 2.8 mg/dL (2.5-4.9); Potassium, Blood 3.6 mmol/L (3.5-5.5); Sodium, Blood 139 mmol/L (136-145)
--- NOTE | 2018-10-13 06:02 | NUR ---
SUMMARY PT INTUBATED AND SEDATED. DURING SEDATION VACATION THIS AM PT WOULD FOLLOW SIMPLE COMMANDS. WAS ABLE TO REMAIN CALM. REMAINS ON CARDIZEM GTT AT 5MG/HR. STILL AFIB 90'S TO LOW 100'S. BP STABLE. PT HAS MOTTLING AROUND KNEES AND TO HANDS. HIS SKIN IS DUSKY T/O BUT WARM TO TOUCH AND ABLE TO FIND PULSES. TOLERATING TF WITH LITTLE TO NO RESIDUAL Q4HR. NO SIGN OF DISTRESS THIS AM.
--- NOTE | 2018-10-13 07:30 | NUR ---
ASSUMED CARE OF PATIENT; SEE ASSESSMENT CHARTING FOR DETAILS. PATIENT SEDATED ON PROPOFOL (20MCG/KG/MIN); BILAT SOFT WRIST RESTRAINTS IN PLACE TO PREVENT SELF EXTUBATION AND PULLING OF LINES; RIKERS' SCALE 2-3. OGT INFUSING WITH PIVOT 1.5 AT 10ML/HR WITH 30ML H20 Q 4 HOURS; RESIDUAL <10/ML. AMADOR TO GRAVITY AND DRAINING FAIR AMOUNTS OF MED. YELLOW URINE. VENT. SETTINGS: A/C 16, TV 450, PEEP 5 AND FIO2 25%. CARDIZEM DRIP INFUSING AT 5MG/HR AND LR INFUSING AT 100ML/HR. SCD'S IN PLACE. SKIN REMAINS RED TO PURPLE TO PALE; MOTTLED TO EXTREM. AND VARIES; FEELS WARM TO TOUCH; AFEBRILE. MONITOR REMAINS AFIB WITH RATE 90-100'S.
--- NOTE | 2018-10-13 07:50 | NUR ---
RN [facility], FOR VANCOMYCIN LEVEL, VIA SAFESET LINE FROM CENTRAL LINE. TECH. SENT SPECIMEN TO LAB.
--- NOTE | 2018-10-13 08:30 | NUR ---
DR. MARCIAL HERE; NO NEW ORDERS. AWARE OF INCREASED RENAL LABS AND ELEVATED WBC.
--- NOTE | 2018-10-13 09:07 | NUR ---
T/C LAB TO INFORM OF CRITICAL VALUE; VANCOMYCIN LEVEL 27.3. RN SPOKE TO PHARMACY AND INSTRUCTED TO HOLD THIS AM DOSE; REPEAT LAB LATER TONIGHT.
[2018-10-13 09:08] LABS: Vancomycin, Trough 27.3 ug/mL (5.0-10.0)
--- NOTE | 2018-10-13 15:25 | NUR ---
PALLIATIVE CARE NURSE, CORI, TO CONTACT [facility] TO FIND AN EMERGENCY CONTACT NUMBER (TO INFORM FAMILY PATIENT IS ON VENT., ETC).
--- NOTE | 2018-10-13 17:25 | NUR ---
Contacted [place] for advance directive and contact information. pt is service connected 100% [place] . Advance directive faxed to medical records placed on chart and reviewed with intensvist. Pt stated he did not want tita contacted on admit. On visit with pt he stated he would contact her but did not want to bother her yet. Will attempt to contact tita . updated [facility] palliative care team. If he recovers may need extensive rehab care. May need permanant placement.
--- NOTE | 2018-10-13 18:38 | NUR ---
SUMMARY: NO ACUTE CHANGES T/O THE DAY; VENT. SETTINGS AND PROPOFOL/CARDIZEM DRIPS UNCHANGED. TUBE FEEDING INCREASED TO 20ML/HR (GOAL 35); APPEARS TO TOLERATE WITHOUT UUDUE RESIDUALS. MONITOR REMAINS ATRIAL FIB WITH RATE 90'S TO LOW 100'S. AFEBRILE; SBP 90'S MOST OF DAY; HELD METOPROLOL DOSE THIS AM. WILL REPORT TO ONCOMING RN.
[2018-10-13 20:35] LABS: Vancomycin, Random 20.4 ug/mL
--- NOTE | 2018-10-13 22:10 | NUR ---
PT INTUBATED AND SEDATED WITH PROPOFOL. PT WILL TRY TO OPEN EYE'S TO VOICE. ON CARDIZEM GTT AT 5MG/HR. AFIB 90'S-LOW 100'S. PT IS DUSKY T/O WITH A LITTLE MOTTLING AROUND KNEES. SKIN IS WARM TO TOUCH T/O. TF AT 20ML/HR AND NO RESIDUAL. SEE ASSESSMENT.
[2018-10-14 03:53] LABS: BASOPHILS ABSOLUTE AUTO 0.05 K/mm3 (0.00-0.23); BASOPHILS PERCENT AUTO 0 % (0-2); EOSINOPHILS ABSOLUTE AUTO 0.12 K/mm3 (0.00-0.68); EOSINOPHILS PERCENT AUTO 1 % (0-6); Hematocrit 33.7 % (37.0-53.0); IMMATURE GRAN ABSOLUTE AUTO 0.41 K/mm3 (0.00-0.10); IMMATURE GRAN PERCENT AUTO 3 % (0-1); LYMPHOCYTES ABSOLUTE AUTO 0.78 K/mm3 (0.84-5.20); LYMPHOCYTES PERCENT AUTO 5 % (21-46); MONOCYTES ABSOLUTE AUTO 0.51 K/mm3 (0.16-1.47); MONOCYTES PERCENT AUTO 3 % (4-13); Mean Corpuscular HGB 32.7 pg (26.0-34.0); Mean Corpuscular HGB Conc 32.6 g/dL (31.5-36.5); Mean Corpuscular Volume 100 fL (80-100); Mean Platelet Volume 11.4 fL (9.1-12.4); NEUTROPHILS ABSOLUTE AUTO 13.27 K/mm3 (1.96-9.15); NEUTROPHILS PERCENT AUTO 88 % (41-73); NRBC ABSOLUTE 0.07 K/mm3 (0.00-0.02); NRBC Auto 0.5 /100 WBC (0.0-0.2); Platelet Count 191 K/mm3 (150-400); RDW Coefficient Variation 14.3 % (11.7-14.2); Red Blood Cell Count 3.36 M/mm3 (4.30-5.90); White Blood Cell Count 15.14 K/mm3 (4.00-11.30)
[2018-10-14 04:13] LABS: Albumin, Blood 2.4 g/dL (3.4-5.0); Anion Gap 5 mmol/L (6-16); Blood Urea Nitrogen 24 mg/dL (8-24); Bun/Creatinine Ratio 17.1 (12.0-20.0); CO2, Blood 32 mmol/L (21-32); Calcium, Blood 8.2 mg/dL (8.5-10.1); Chloride, Blood 104 mmol/L (98-108); Glomerular Filtration Rate 54 (60-); Glucose, Blood 138 mg/dL (70-99); Magnesium, Blood 2.9 mg/dL (1.6-2.4); Phosphorus, Blood 3.1 mg/dL (2.5-4.9); Potassium, Blood 3.4 mmol/L (3.5-5.5); Sodium, Blood 141 mmol/L (136-145)
[2018-10-14 05:13] LABS: PCO2 Arterial 41.8 mmHg (35-45); PO2 Arterial 82.3 mmHg (80-100); pH Blood Arterial 7.47 (7.35-7.45)
--- NOTE | 2018-10-14 05:52 | NUR ---
SUMMARY PT INTUBATED ON VENT. WAS SEDATED WITH PROPOFOL UNTIL SBT THIS AM. PT IS NOW ON PS AND OFF SEDATION. FOLLOWING SIMPLE COMMANDS AND DOING WELL. CARDIZEM GTT WAS TURNED OFF AT MIDNIGHT. SINCE THEN HR HAS BEEN 120'S-130'S. LET DR. ELLIS KNOW THIS AM AND RECEIVED NEW ORDERS FOR METOPROLOL. ALSO LET HER KNOW ABOUT POTASSIUM LEVEL AND GOT ORDERS FOR KCL RIDER. TOLERATING TF AT 35ML WITH NO RESIDUAL ALL NIGHT. NO SIGN OF DISTRESS.
--- NOTE | 2018-10-14 07:46 | NUR ---
ASSUMED CARE: RECEIVED REPORT FROM MARIELA RN. PT CURRENTLY ON VENT SETTINGS OF AC/16/450/5/35% SATTING @ 98%. NO DISTRESS NOTED AT THIS TIME. SOFT WRIST RESTRAINTS ON AT THIS TIME. TUBE FEEDING RUNNING @ 35ML/HR PER ORDERS. PROPOFOL RUNNING @ 20 MCG/KG/MIN AT THIS TIME. VSS AT THIS TIME. WILL CONTINUE TO MONITOR AND ASSESS FURTHER.
[2018-10-14 09:10] LABS: Vancomycin, Random 13.1 ug/mL
--- NOTE | 2018-10-14 18:42 | NUR ---
SHIFT SUMMARY: NO ACUTE CHANGES NOTED T/O THE SHIFT. PT HAD ONE SMALL BM THIS SHIFT. TUBE FEEDING REMAINED AT 35ML/HR, NO RESIDUAL NOTED T/O THE DAY. HEART RHYTHM HAS REMAINED A-FIB T/O THE DAY BUT HAS BEEN TRENDING IN THE 90-120'S W/O ANY IV MEDICATIONS. NO DISTRESS OR SIGNS OF PAIN NOTED T/O THE SHIFT. VSS T/O THE DAY. WILL CONTINUE TO MONITOR AND REPORT TO MARIELA FAM.
--- NOTE | 2018-10-14 19:00 | NUR ---
REPORT RECIEVED FROM RICHIE OFF GOING RN. MONITOR INTACT SHOWING A FIB. HEART RATE 90'S-110'S VEMT SETTINGS AC 16,TV 450,IOF2 30% AND PEEP 5, RATE 30'S SPO2 95-97%. LUNG SOUNDS CLEAR WITH DECREASED SOUNDS IN THE BASES. ABDOMNEN SOFT WITH BOWEL SOUNDS FOUR QUADS. TUBE FEEDING INFUSINGPIVOT [id number] PER HOUR WITH ZERO RESIDUAL. TEMP PROBE AMADOR INTACT DRAINING GREENISH UNRINE PAS TO LOWER EXTREMITIES. REPOSITIONED TO L SIDE. SOFT WRIST RESTRAINTS INACT TO PREVENT INADVERTENT REMOVAL OF LINES/TUBES. CONTINUE TO MONITOR AND REPORT CHANGE IN PATIENT CONDITION.
[2018-10-15 05:25] LABS: PCO2 Arterial 46.3 mmHg (35-45); PO2 Arterial 68.4 mmHg (80-100); pH Blood Arterial 7.45 (7.35-7.45)
[2018-10-15 05:30] LABS: BASOPHILS ABSOLUTE AUTO 0.04 K/mm3 (0.00-0.23); BASOPHILS PERCENT AUTO 0 % (0-2); EOSINOPHILS ABSOLUTE AUTO 0.14 K/mm3 (0.00-0.68); EOSINOPHILS PERCENT AUTO 1 % (0-6); Hematocrit 33.3 % (37.0-53.0); Hemoglobin 10.8 g/dL (13.5-17.5); IMMATURE GRAN ABSOLUTE AUTO 0.29 K/mm3 (0.00-0.10); IMMATURE GRAN PERCENT AUTO 2 % (0-1); LYMPHOCYTES ABSOLUTE AUTO 0.79 K/mm3 (0.84-5.20); LYMPHOCYTES PERCENT AUTO 6 % (21-46); MONOCYTES ABSOLUTE AUTO 0.47 K/mm3 (0.16-1.47); MONOCYTES PERCENT AUTO 4 % (4-13); Mean Corpuscular HGB 32.4 pg (26.0-34.0); Mean Corpuscular HGB Conc 32.4 g/dL (31.5-36.5); Mean Corpuscular Volume 100 fL (80-100); Mean Platelet Volume 11.6 fL (9.1-12.4); NEUTROPHILS ABSOLUTE AUTO 11.38 K/mm3 (1.96-9.15); NEUTROPHILS PERCENT AUTO 87 % (41-73); NRBC ABSOLUTE 0.02 K/mm3 (0.00-0.02); NRBC Auto 0.2 /100 WBC (0.0-0.2); Platelet Count 183 K/mm3 (150-400); RDW Coefficient Variation 14.6 % (11.7-14.2); RDW Standard Deviation 53.1 fL (35.1-46.3); Red Blood Cell Count 3.33 M/mm3 (4.30-5.90); White Blood Cell Count 13.11 K/mm3 (4.00-11.30)
[2018-10-15 06:01] LABS: Magnesium, Blood 2.9 mg/dL (1.6-2.4)
[2018-10-15 06:03] LABS: Anion Gap 5 mmol/L (6-16); Blood Urea Nitrogen 26 mg/dL (8-24); Bun/Creatinine Ratio 21.7 (12.0-20.0); CO2, Blood 32 mmol/L (21-32); Calcium, Blood 8.5 mg/dL (8.5-10.1); Chloride, Blood 106 mmol/L (98-108); Glomerular Filtration Rate >60 (60-); Glucose, Blood 121 mg/dL (70-99); Phosphorus, Blood 3.7 mg/dL (2.5-4.9); Potassium, Blood 3.4 mmol/L (3.5-5.5); Sodium, Blood 143 mmol/L (136-145)
--- NOTE | 2018-10-15 06:30 | NUR ---
SHIFT SUMMARY: REMAINS INTUBATED SEDATED AND RESTRAINED. MONITOR INTACT SHOWING A FIB. HEART RATE 100'S-110'S. VENT SETTINGS AC 16, TV 450, FIO2 50% PEEP 5 RATE 20-26 SPO2 95-98% LUNG SOUNDS CLEAR UPPER LOBES AND SLIGHTLY DECREASED IN THE BASES. COUPIOUS AMTS CLEAR THIN ORAL SECREATION FREQUENTLY. CENTRAL LINE DRESSING CHANGED USING STERILE TECHNIQUE. ABDOMEN SOFT WITH BOWEL SOUNDS FOUR QUADS. AMADOR PATENT DRAINING SARAH URINE. PAS TO LOWER EXTREMITIES. SKIN MOTTLED FROM KNEES DOWN. RESIDUALS HAVE BEEN MINIMAL THIS SHIFT. CONTINUE TO MONITOR AND REPORT CHANGE IN PATIENT CONDITION.
--- NOTE | 2018-10-15 07:29 | NUR ---
ASSUMED CARE: RECEIVED REPORT FROM NOC RN. UPON ENTERING ROOM NO DISTRESS IS NOTED. VENT SETTINGS ARE NOTED TO BE AC/16/450/5/50% O2 SATS >92%. HR IS NOTED TO BE ELIVATED BETWEEN 110-120'S. ALL OTHER VITALS NOTED TO BE STABLE. WILL CONTINUE TO MONITOR AND ASSESS FURTHER.
--- NOTE | 2018-10-15 13:00 | NUR ---
WEAN: ATTEMPTED TO PLACE PT ON SPONTANIOUS AND PT BECAME VERY AGITATED AND COUGHING. UNABLE TO COMPLETE WEAN
--- NOTE | 2018-10-15 16:14 | NUR ---
CHANGE: PROPOFOL TURNED DOWN TO 15 MCG/KG/MIN AT THIS TIME. MINIMAL RESPONSE TO PAIN. PT APPEARS TO ATTEMPT TO OPEN EYES WITH STERNAL RUB.
--- NOTE | 2018-10-15 17:30 | NUR ---
SHIFT SUMMARY: NO DISTRESS NOTED T/O THE SHIFT. ATTEMPTED TO PLACE PT ON SPONTANIOUS, BUT PT HAD AGITATION AND RESPRATIONS INCREASED WITH UNCONTROLABLE COUGHING. PROPOFOL HAD TO BE TURNED BACK UP TO 30 MCG/KG/MIN FROM 20 MCG/KG/MIN. SPONTANIOUS TRIAL DC'D. LATER IN THE SHIFT PT BP BEGAN TO TREND DOWN AND WAS HAVING MINIMAL REACTION TO PAINFUL STEMULI, THEREFORE PROPOFOL WAS TURNED DOWN. CURRENTLY PROPOFOL IS ON 15 MCG/KG/MIN. SECREATIONS APPEAR TO BE DECREASING FROM THE BEGINNING OF THE SHIFT. WILL CONTINUE TO MONITOR AND REPORT TO NOC RN.
--- NOTE | 2018-10-15 19:00 | NUR ---
ASSUME CARE: REPORT RECIEVED FROM OFF GOING SARWAT QUIROZ. NE REMAINS INTUBATED SEDATED AND RESTRAINED. MONITOR INTACT SHOWING A FIB. HEART RATE 100'-110'S. VENT SETTINGS AC 16, TV 450, FIO2 25%, PEEP 5, RATE 16-20'S SPO2 95-98%. LUNG SOUNDS COARSE/CLEAR UPPERS WITH DECREASED SOUNDS IN THE BASES.SX COPIOUS AMTS OF THIN ORAL CLEAR SECREATIONS AND THICK ETT CLEAR SECREATION. ZERO AMT RESIDUAL FROM TF. ABDOMEN SOFT WITH BOWEL SOUNDS FOUR QUADS. AMADOR PATENT DRAINING SARAH URINE. SCROTAL AND CURTIS RECTAL EDEMA NOTED. SLING IN PLACE. GENERALIZED DEPENDENT EDEMA NOTED WITH EXTREMITIES ELEVATED ON PILLOWS. PAS TO LOWER EXTREMITIES. [id number] TO MONITOR AND REPORT CHANGE IN PATIENT CONDITION. ;
--- NOTE | 2018-10-15 20:33 | NUR ---
Will continue to try to contact family and get update from [facility]
--- NOTE | 2018-10-15 22:26 | NUR ---
SEDATATION OFF FOR SBT DR ELLIS IN ROOM. CONTINUE TO MONITOR AND REPORT CHANGE IN PATIENT CONDITION COPIOUS AMTS THIN WHITE SECREATIONS, SBT ENDED AT 2225 ,
--- NOTE | 2018-10-15 23:31 | NUR ---
TUBE FEED: TUBING, CATHLEEN VALVE, AND FORMULA CANISTER CHANGED.
[2018-10-16 04:04] LABS: BASOPHILS ABSOLUTE AUTO 0.03 K/mm3 (0.00-0.23); BASOPHILS PERCENT AUTO 0 % (0-2); EOSINOPHILS ABSOLUTE AUTO 0.13 K/mm3 (0.00-0.68); EOSINOPHILS PERCENT AUTO 1 % (0-6); Hematocrit 31.3 % (37.0-53.0); Hemoglobin 10.1 g/dL (13.5-17.5); IMMATURE GRAN ABSOLUTE AUTO 0.16 K/mm3 (0.00-0.10); IMMATURE GRAN PERCENT AUTO 2 % (0-1); LYMPHOCYTES ABSOLUTE AUTO 0.94 K/mm3 (0.84-5.20); LYMPHOCYTES PERCENT AUTO 9 % (21-46); MONOCYTES ABSOLUTE AUTO 0.45 K/mm3 (0.16-1.47); MONOCYTES PERCENT AUTO 5 % (4-13); Mean Corpuscular HGB Conc 32.3 g/dL (31.5-36.5); Mean Corpuscular Volume 102 fL (80-100); Mean Platelet Volume 12.1 fL (9.1-12.4); NEUTROPHILS ABSOLUTE AUTO 8.34 K/mm3 (1.96-9.15); NEUTROPHILS PERCENT AUTO 83 % (41-73); Platelet Count 172 K/mm3 (150-400); RDW Coefficient Variation 14.6 % (11.7-14.2); RDW Standard Deviation 54.4 fL (35.1-46.3); Red Blood Cell Count 3.06 M/mm3 (4.30-5.90); White Blood Cell Count 10.05 K/mm3 (4.00-11.30)
[2018-10-16 04:23] LABS: Anion Gap 6 mmol/L (6-16); Blood Urea Nitrogen 28 mg/dL (8-24); CO2, Blood 33 mmol/L (21-32); Calcium, Blood 8.4 mg/dL (8.5-10.1); Chloride, Blood 107 mmol/L (98-108); Creatinine, Blood 1.12 mg/dL (0.60-1.20); Glomerular Filtration Rate >60 (60-); Glucose, Blood 129 mg/dL (70-99); Magnesium, Blood 2.6 mg/dL (1.6-2.4); Phosphorus, Blood 3.6 mg/dL (2.5-4.9); Potassium, Blood 3.4 mmol/L (3.5-5.5); Sodium, Blood 146 mmol/L (136-145)
[2018-10-16 04:31] LABS: PCO2 Arterial 44.4 mmHg (35-45); PO2 Arterial 63.3 mmHg (80-100); pH Blood Arterial 7.48 (7.35-7.45)
--- NOTE | 2018-10-16 06:12 | NUR ---
SHIFT SUMMARY: MONITOR INTACT SHOWING A FIB HEART RATE 100'S-110'S. REMAINS INTUBATED SEDATED AND RESTRAINED. VENT SETTINGS AC 16, TV 450, FIO2 40% PEEP 5 RATE 16-20'S, SPO2 95-98% LUNG SOUNDS CLEAR UPPER LOBES WITH DECREASED SOUNDS IN THE BASES. ABDOMEN SOFT WITH BOWEL SOUNDS FOUR QUADSS. AMADOR PATENT DRAINING SARAH URINE, GENERALIZED DEPENDENT EDEMA EXTREMITIES ELEVATED ON PILLOWS. PAS TO LOWER EXTREMITIES SKIN MOTTLED FROM KNEES DOWN. CONTINUE TO MONITOR AND REPORT CHANGE IN PATIENT CONDITION.
--- NOTE | 2018-10-16 07:30 | NUR ---
ASSUMED CARE: RECEIVED REPORT FROM MARIELA RN. PROPOFOL RUNNING @ 20 MCG/KG/MIN. VENT SETTINGS AC/16/450/5/25% SATS >92%. PT APPEARS TO BE ATTEMPTING TO OPEN EYES WITH VERBAL STEMULI. NO DISTRESS NOTED AT THIS TIME. WILL CONTINUE TO MONITOR AND ASSESS FURTHER.
--- NOTE | 2018-10-16 14:17 | NUR ---
BREATHING TRIAL: PROPOFOL TURNED OFF APPROX 1410. RT IN THE ROOM AT THIS TIME TO BEGIN BREATHING WEAN. HR WAS NOTED TO BE IN THE 110-120'S PRIOR TO TURNING PROPOFOL OFF. CURRENTLY HR IS NOTED BETWEEN 120-140. WILL CONTINUE TO MONITOR.
--- NOTE | 2018-10-16 15:18 | NUR ---
BREATHING TRIAL: PT RESPRATORY RATE WENT WAY UP AND WEAN WAS STOPPED.
--- NOTE | 2018-10-16 17:32 | NUR ---
SHIFT SUMMARY: NO DISTRESS NOTED T/O THE DAY. WEAN WAS DONE THIS SHIFT PER ORDERS. WEAN HAD TO BE CUT SHORT, BUT PT APPEARED TO HANDLE FAIRLY WELL PHYCHOLOGICLY, DID NOT APPEAR OVERLY ANXIOUS AND NO S/S OF PAIN WAS ABLE TO FOLLOW COMMANDS AND ANSWER YES OR NO QUESTIONS. TIDAL VOLUME WAS RANGING FROM 300-400 T/O MOST OF THE WEAN. RR ELAVATED ABOVE 35 FOR QUITE SOME TIME AND PT APPEARD TO BE VERY ANXIOUS, THEREFORE THE WEAN WAS DISCONTINUED. SECREATIONS CONTINUE TO BE COPIOUS, THICK AND CLEAR. HR INCREASED T/O THE DAY INTO THE 160'S, AMIODARONE WAS STARTED PER ORDERS. BLOOD PRESSURES WERE LOW THIS MORNING AND THE BEGINNING OF THIS AFTERNOON THEREFORE MOTOPROLOL WAS HELD. PT WAS GIVEN K+ RIDERS D/T LOW POTASSIUM AND LASIX WAS GIVEN. WILL CONTINUE TO MONITOR AND REPORT TO ONCOMING RN.
--- NOTE | 2018-10-16 19:50 | NUR ---
ASSESSMENT/ASSUMED CARE PT INTUBATED AND ON [facility] VENT. OPENS EYES TO VERBAL STIMULI. MOVES TOES ON COMMMAND. N0 MOVEMENT TO HANDS OR ARMS NOTED. BACK TO SLEEP QUICKLY. LUNGS CLEAR BUT DECREASED IN BASES. VENT SETTINGS AC16 TV 450 PEEP 5 FIO2 25% ORAL CARE DONE. HEART RATE IRREGULAR-AFIB 120-140'S, AMIODARONE GTT AT 0.5MG/MIN. LOPRESSOR HELD DUE TO HYPOTENSION. BT+ HYPOACTIVE. TUBE FEED WITH PIVOT AT GOAL RATE OF 35 ML/HR WITH H2O 30 ML Q4HR. RESIDUAL LESS THAN TWO, REFED. AMADOR PATENT AND DRAINING CLEAR YELLOW URINE. CENTRAL LINE TO RIGHT IJ WITH NS AT 100 ML/HR WITH ANTIBIOTICS, PROPOFOL AT 20 MCQ/KG/MIN. SCD'S ON. ROAD ENGINEER GIVING BATH.
--- NOTE | 2018-10-17 00:03 | NUR ---
REASSESSMENT PT OPENS EYES TO VERBAL STIMULI. FOLLOWING SOME SIMPLE INSTRUCTIONS. LUNGS CLEAR BUT DECREASED IN THE BASES. NO VENT CHANGES. ORAL CARE DONE AND PT REPOSITIONED. HEART RATE CONT IRREGULAR AFIB 100-120 ON AMIODARONE GTT AT 0.5 MG/MIN. BT+ HYPOACTIVE. RESIDUAL CHECK ZERO.
[2018-10-17 03:57] LABS: BASOPHILS ABSOLUTE AUTO 0.03 K/mm3 (0.00-0.23); BASOPHILS PERCENT AUTO 0 % (0-2); EOSINOPHILS PERCENT AUTO 0 % (0-6); Hematocrit 31.2 % (37.0-53.0); Hemoglobin 10.1 g/dL (13.5-17.5); IMMATURE GRAN ABSOLUTE AUTO 0.17 K/mm3 (0.00-0.10); IMMATURE GRAN PERCENT AUTO 2 % (0-1); LYMPHOCYTES ABSOLUTE AUTO 0.44 K/mm3 (0.84-5.20); LYMPHOCYTES PERCENT AUTO 5 % (21-46); MONOCYTES ABSOLUTE AUTO 0.21 K/mm3 (0.16-1.47); MONOCYTES PERCENT AUTO 2 % (4-13); Mean Corpuscular HGB Conc 32.4 g/dL (31.5-36.5); Mean Corpuscular Volume 102 fL (80-100); Mean Platelet Volume 12.3 fL (9.1-12.4); NEUTROPHILS ABSOLUTE AUTO 8.13 K/mm3 (1.96-9.15); NEUTROPHILS PERCENT AUTO 91 % (41-73); NRBC ABSOLUTE 0.02 K/mm3 (0.00-0.02); NRBC Auto 0.2 /100 WBC (0.0-0.2); Platelet Count 185 K/mm3 (150-400); RDW Coefficient Variation 14.9 % (11.7-14.2); RDW Standard Deviation 55.6 fL (35.1-46.3); Red Blood Cell Count 3.06 M/mm3 (4.30-5.90); White Blood Cell Count 8.98 K/mm3 (4.00-11.30)
--- NOTE | 2018-10-17 04:20 | NUR ---
REASSESSMENT PT RESTING QUIELTY, OPENS EYES AND MOUTH TO VERBAL STIMULI. LUNGS CLEAR BUT DECREASED IN THE BASES. NO VENT CHANGES. ORAL CARE DONE. HEART RATE CONT IRREGULAR-AFIB 100-120'S. BP IMPROVED. BT+. TUBE FEED RESIDUAL 20 ML REFED. INCONT LIQUID BROWN STOOL. FLEXI SEAL PLACED. CXR DONE. PT REPOSITIONED.
[2018-10-17 04:21] LABS: Alanine Aminotransfer (ALT/SGP 53 U/L (12-78); Albumin, Blood 2.2 g/dL (3.4-5.0); Albumin/Globulin Ratio 0.6 (0.8-1.8); Alk Phos 148 U/L (50-136); Anion Gap 6 mmol/L (6-16); Aspartate Aminotrans (AST/SGOT 36 U/L (12-37); Bilirubin, Total 0.5 mg/dL (0.1-1.0); Blood Urea Nitrogen 31 mg/dL (8-24); Bun/Creatinine Ratio 25.8 (12.0-20.0); CO2, Blood 32 mmol/L (21-32); Calcium, Blood 8.4 mg/dL (8.5-10.1); Chloride, Blood 106 mmol/L (98-108); Globulin, Blood 3.8 g/dL (2.2-4.0); Glomerular Filtration Rate >60 (60-); Glucose, Blood 173 mg/dL (70-99); Potassium, Blood 4.1 mmol/L (3.5-5.5); Sodium, Blood 144 mmol/L (136-145)
--- NOTE | 2018-10-17 05:47 | NUR ---
SHIFT SUMMARY PT RESTING QUIETLY. WEANING DONE THIS AM FOR 30MIN. PT WAS ON PS 7/5 FIO2 25%. FOLLOWED INSTRUCTION AND PASSED WEAN. BACK ON VENT WITH SEDATION RESTARTED PROPOFOL AT 25MCQ/KG/MIN. BILAT SOFT WRIST RESTRAINTS ON. LUNGS CONT CLEAR BUT DECREASED. PRODUCTIVE COUGH AFTER WEAN WITH CLEAR SECRECTIONS. HEART RATE CONT AFIB 100-120'S ON AMIODARONE GTT AT 0.5MG/MIN. FLEXI SEAL PLACED DURING THE NIGHT FOR LIQUID STOOL. BP IMPROVING. LOPRESSOR HELD LAST NIGHT DUE TO SBP BELOW 100. TUBE FEED AT GOAL, MIN RESIDUALS. REPORT TO ON COMING NURSE
--- NOTE | 2018-10-17 07:15 | NUR ---
ASSUMED CARE OF PATIENT; SEE ASSESSMENT CHARTING FOR DETAILS. PATIENT SEDATED AND INTUBATED. PROPOFOL DRIP INFUSING AT 20MCG/KG/MIN. VENTILATOR SETTINGS: A/C 16, TV 450, PEEP 5 AND FIO2 25%. RIKERS' SCALE ABOUT 3, RESPONDING TO PAINFUL STIMULI. LUNGS COARSE T/O; SUCTIONED FOR MODERATE AMOUNTS OF CLEAR, THICK MUCUS. BILAT. SOFT WRIST RESTRAINTS IN PLACE TO PREVENT SELF EXTUBATION. OGT INFUSING WITH PIVOT 1.5 AT 35ML/HR; RESIDUAL LESS THAN 5/ML. AMADOR DRAINING MOD. AMOUNTS OF LT SARAH URINE. MONITOR REMAINS ATRIAL FIB WITH RATE 80'S TO LOW 100'S; REMAINS ON AMIODARONE DRIP OF 0.5MG/MIN. FLEXISEAL (RECTAL TUBE) TO GRAVITY FLOW; SCANT OUTPUT NOTED.
--- NOTE | 2018-10-17 10:30 | NUR ---
DR. DERAS (GROCERY MANAGER) HERE; ADJUSTED VENT. SETTINGS TO: SPONT. OF 10/5 AND FIO2 25%. RN PUT PROPOFOL DRIP ON STANDBY.
--- NOTE | 2018-10-17 10:50 | NUR ---
DR. DERAS RE-EVALUATED PATIENTS' TOLERANCE TO SBT; TV'S LOW AND FIO2 DROPPING TO MID TO HIGH 80'S; INSTRUCTED RN TO RESUME PROPOFOL (SEDATION) AND PHYSICIAN RESUMED PREVIOUS A/C SETTINGS. NOTE: PATIENTS' EYES WERE OPENED AND HE DID MANAGE TO SQUEEZE RN'S HANDS; DIFFICULT TO TELL IF IT WAS PURPOSEFUL OR AUTOMATIC. BILAT. SOFT WRIST RESTRAINTS REMAIN IN PLACE.
--- NOTE | 2018-10-17 12:30 | NUR ---
RN INQUIRED OF DR. DERAS IF HE WANTED TO CONT. AMIODARONE DRIP OR SWITCH OVER TO PO AMIODARONE (VIA OGT). PHYSICIAN WANTING TO CONT. IV AMIODARONE AND KEEP AT 1MG/MIN (RATHER THAN 0.5), TIL TOMORROW OR THE NEXT DAY, FOR RATE AND RHYTHM MANAGEMENT. RN INCREASED TO 1MG/MIN; CHANGED TUBING AND FILTER, ALSO.
--- NOTE | 2018-10-17 16:00 | NUR ---
NO ACUTE CHANGES; REMAINS ON A/C VENT. SETTINGS PREVIOUSLY NOTED. RIKERS' SCALE STAYING ABOUT 3.
--- NOTE | 2018-10-17 18:29 | NUR ---
SUMMARY: NO ACUTE CHANGES. MINIMAL OUTPUT FROM FLEXISEAL/RECTAL TUBE; EST. 40/ML. 2800CC OF URINE OUTPUT FROM AMADOR CATHETER. REMAINS ON PROPOFOL DRIP AT 20MCG/KG/MIN AND AMIODARONE DRIP REMAINS AT 1MG/MIN. REMAINS IN ATRIAL FIB. BUT RATE 90'S TO LOW 100'S. WILL REPORT TO ONCOMING RN.
--- NOTE | 2018-10-17 19:38 | NUR ---
PATIENT INTUBATED AND SEDATED WITH PROPOFOL AT 20 MCG. PATIENT OPENS EYES TO STIMULI, SLIGHT MOVEMENT SEEN IN EXTREMITIES. BILAT WRIST RESTRAINTS REMAIN IN PLACE DUE TO RISK FOR ACCIDENTAL EXTUBATION, DUE TO UNPREDICTABLE SEDATION AND BEHAVIOR. OG IN PLACE WITH TUBE FEEDING AT GOAL OF 35/HR. AMIODARONE DRIP CONTINUES AT 1 MG/MIN, HEART RATE 90-100'S
--- NOTE | 2018-10-17 19:38 | NUR ---
contact with [facility] team and james mckay. they are trying to find family. Review of pt with intesivist. If no family will seek ethics consult if unable to wean off vent for plan of care
[2018-10-18 04:25] LABS: BASOPHILS ABSOLUTE AUTO 0.02 K/mm3 (0.00-0.23); BASOPHILS PERCENT AUTO 0 % (0-2); EOSINOPHILS ABSOLUTE AUTO 0.01 K/mm3 (0.00-0.68); EOSINOPHILS PERCENT AUTO 0 % (0-6); Hematocrit 31.3 % (37.0-53.0); Hemoglobin 10.3 g/dL (13.5-17.5); IMMATURE GRAN ABSOLUTE AUTO 0.24 K/mm3 (0.00-0.10); IMMATURE GRAN PERCENT AUTO 2 % (0-1); LYMPHOCYTES ABSOLUTE AUTO 1.04 K/mm3 (0.84-5.20); LYMPHOCYTES PERCENT AUTO 10 % (21-46); MONOCYTES ABSOLUTE AUTO 0.61 K/mm3 (0.16-1.47); MONOCYTES PERCENT AUTO 6 % (4-13); Mean Corpuscular HGB 32.9 pg (26.0-34.0); Mean Corpuscular HGB Conc 32.9 g/dL (31.5-36.5); Mean Corpuscular Volume 100 fL (80-100); Mean Platelet Volume 12.4 fL (9.1-12.4); NEUTROPHILS ABSOLUTE AUTO 8.26 K/mm3 (1.96-9.15); NEUTROPHILS PERCENT AUTO 81 % (41-73); NRBC ABSOLUTE 0.02 K/mm3 (0.00-0.02); NRBC Auto 0.2 /100 WBC (0.0-0.2); Platelet Count 211 K/mm3 (150-400); RDW Coefficient Variation 14.6 % (11.7-14.2); RDW Standard Deviation 53.2 fL (35.1-46.3); Red Blood Cell Count 3.13 M/mm3 (4.30-5.90); White Blood Cell Count 10.18 K/mm3 (4.00-11.30)
[2018-10-18 04:49] LABS: Alanine Aminotransfer (ALT/SGP 44 U/L (12-78); Albumin, Blood 2.4 g/dL (3.4-5.0); Albumin/Globulin Ratio 0.6 (0.8-1.8); Alk Phos 130 U/L (50-136); Anion Gap 7 mmol/L (6-16); Aspartate Aminotrans (AST/SGOT 23 U/L (12-37); Bilirubin, Total 0.5 mg/dL (0.1-1.0); Blood Urea Nitrogen 37 mg/dL (8-24); Bun/Creatinine Ratio 31.9 (12.0-20.0); CO2, Blood 34 mmol/L (21-32); Calcium, Blood 8.7 mg/dL (8.5-10.1); Chloride, Blood 105 mmol/L (98-108); Creatinine, Blood 1.16 mg/dL (0.60-1.20); Globulin, Blood 3.8 g/dL (2.2-4.0); Glomerular Filtration Rate >60 (60-); Glucose, Blood 163 mg/dL (70-99); Magnesium, Blood 2.3 mg/dL (1.6-2.4); Phosphorus, Blood 3.7 mg/dL (2.5-4.9); Potassium, Blood 3.3 mmol/L (3.5-5.5); Sodium, Blood 146 mmol/L (136-145); Total Protein, Blood 6.2 g/dL (6.4-8.2)
--- NOTE | 2018-10-18 05:20 | NUR ---
WEANING PROPOFOL OFF FOR WEAN AT 0415 PATIENT AWAKING EASILY FOLLOWING DIRECTIONS, POINTING TO THINGS IN ROOM AND NODDING YES AND NO TO QUESTIONS. SEE RT CHARTING FOR WEAN RESULTS. PROPOFOL RESTARTED AT 0518
[2018-10-18 05:26] LABS: PO2 Arterial 70.4 mmHg (80-100); pH Blood Arterial 7.46 (7.35-7.45)
--- NOTE | 2018-10-18 06:17 | NUR ---
SUMMARY PATIENT REMAINS INTUBATED AND SEDATED, WAKING UP EASILY WITH SEDATION VACATION AND WEAN. SEDATED WITH PROPOFOL AT 20 MCG. BILAT WRIST RESTRAINTS REMAIN IN PLACE TO PREVENT ACCIDENTAL EXTUBATION. AMIODARONE DRIP CONTINUES AT 1MG/MIN FOR RATE CONTROL FOR PATIENT AFIB. TUBE FEEDING CONTINUES AT GOAL RATE OF 35/HR. FLEXI-SEAL RECTAL TUBE IN PLACE DRAINING LIQUID BROWN STOOL.
--- NOTE | 2018-10-18 08:41 | NUR ---
PT SEDATED ON PROPOFOL 20MCG FOR MECH VENT, PT AROUSES TO STIMULI, NODS HEAD APPROPRIATELY, DENIES PAIN. PT ANXIOUS AND NODS HEAD YES TO WANTING TO BE ASLEEP/INCREASED SEDATION. DURING TURN FLEXISEAL CAME OUT, ATTEMPTED TO REPLACE IT; RECTAL TONE POOR; LEFT OUT FOR NOW. PT DID NOT TOLERATE TURN; STATS DROPPED 80'S, COLOR PURPLE, COPIOUS AMTS OF ETT SECRETIONS. DR DERAS AT BEDSIDE; GIVEN UPDATE. SEDATION INCREASED TO 35MCG.
--- NOTE | 2018-10-18 17:39 | NUR ---
PT'S LUNGS REMAIN COARSE, WITH COPIOUS AMTS OF CLEAR/WHITE SECRETIONS FROM ETT, FIO2 AT 30%. PICC LINE PLACED TO ALYSSIA W/O DIFFICULTY. CENTRAL LINE (RIJ) DC'D PER PROTOCOL/POLICY. PRESSURE HELD 15MIN. RESIDUALS HIGHER TODAY THEN THEY HAD BEEN, RANGING BETWEEN 40-140. STOOL REMAINS LIQUID; FLEXISEAL REPLACED SUCCESSFULLY; NO LEAKING. AMIODARONE GTT REMAINS AT 1MG/MIN. PROPOFOL AT 35MCG. 1400 LOPRESSOR HELD FOR SBP RANGING BETWEEN 90-100. PT PERIPHERAL PERFUSION IMPROVED TOWARDS END OF SHIFT WITH WARM SKIN; LESS MOTTLED.
--- NOTE | 2018-10-18 20:17 | NUR ---
PATIENT RESTING QUIETLY, OPENS EYES SLIGHTLY TO STIMULI FALLING BACK TO SLEEP WHEN UNDISTURBED. BILAT WRIST RESTRAINTS CONTINUE TO PREVENT ACCIDENTAL EXTUBATION DUE TO UNPREDICTABLE SEDATION AND BEHAVIOR. ET TUBE IN PLACE WITH VENT SET AT AC16, TV450, PEEP5, FIO2 30% SUCTIONING CLEAR TO WHITE SPUTUM. OG IN PLACE WITH TUBE FEEDING AT GOAL OF 35/HR. AMIODARONE DRIP CONTINUES FOR AFIB RATE CONTROL.
[2018-10-19 03:40] LABS: BASOPHILS ABSOLUTE AUTO 0.02 K/mm3 (0.00-0.23); BASOPHILS PERCENT AUTO 0 % (0-2); EOSINOPHILS ABSOLUTE AUTO 0.01 K/mm3 (0.00-0.68); EOSINOPHILS PERCENT AUTO 0 % (0-6); Hematocrit 31.4 % (37.0-53.0); Hemoglobin 10.1 g/dL (13.5-17.5); IMMATURE GRAN ABSOLUTE AUTO 0.18 K/mm3 (0.00-0.10); IMMATURE GRAN PERCENT AUTO 2 % (0-1); LYMPHOCYTES ABSOLUTE AUTO 0.96 K/mm3 (0.84-5.20); LYMPHOCYTES PERCENT AUTO 9 % (21-46); MONOCYTES PERCENT AUTO 6 % (4-13); Mean Corpuscular HGB 32.5 pg (26.0-34.0); Mean Corpuscular HGB Conc 32.2 g/dL (31.5-36.5); Mean Corpuscular Volume 101 fL (80-100); Mean Platelet Volume 12.3 fL (9.1-12.4); NEUTROPHILS ABSOLUTE AUTO 8.95 K/mm3 (1.96-9.15); NEUTROPHILS PERCENT AUTO 83 % (41-73); NRBC ABSOLUTE 0.03 K/mm3 (0.00-0.02); NRBC Auto 0.3 /100 WBC (0.0-0.2); Platelet Count 238 K/mm3 (150-400); RDW Coefficient Variation 14.6 % (11.7-14.2); RDW Standard Deviation 53.1 fL (35.1-46.3); Red Blood Cell Count 3.11 M/mm3 (4.30-5.90); White Blood Cell Count 10.72 K/mm3 (4.00-11.30)
[2018-10-19 03:58] LABS: Alanine Aminotransfer (ALT/SGP 51 U/L (12-78); Albumin, Blood 2.5 g/dL (3.4-5.0); Albumin/Globulin Ratio 0.7 (0.8-1.8); Alk Phos 114 U/L (50-136); Anion Gap 8 mmol/L (6-16); Aspartate Aminotrans (AST/SGOT 24 U/L (12-37); Bilirubin, Total 0.4 mg/dL (0.1-1.0); Blood Urea Nitrogen 43 mg/dL (8-24); Bun/Creatinine Ratio 36.1 (12.0-20.0); CO2, Blood 32 mmol/L (21-32); Calcium, Blood 8.6 mg/dL (8.5-10.1); Chloride, Blood 107 mmol/L (98-108); Creatinine, Blood 1.19 mg/dL (0.60-1.20); Globulin, Blood 3.5 g/dL (2.2-4.0); Glomerular Filtration Rate >60 (60-); Glucose, Blood 194 mg/dL (70-99); Potassium, Blood 3.7 mmol/L (3.5-5.5); Sodium, Blood 147 mmol/L (136-145)
--- NOTE | 2018-10-19 05:29 | NUR ---
WEAN PROPOFOL OFF AAT 0400, PATIENT WAKING QUICKLY, FOLLOWING DIRECTIONS, LAUGHLIN BUT WEAK. SEE RT CHARTING FOR WEAN. PATIENT RESTARTED ON PROPOFOL AT 0440.
--- NOTE | 2018-10-19 06:26 | NUR ---
SUMMARY PATIENT REMAINS INTUBATED AND SEDATED WITH PROPOFOL AT 30 MCG. PATIENT AWAKENS TO SLIGHT STIMULI FOLLOWING SIMPLE DIRECTIONS. AMIODARONE DRIP CONTINUES AT 1MG/MIN FOR AFIB RATE CONTROL. OG IN PLACE WITH TUBE FEEDING AT GOAL OF 35/HR SEE CHARTING FOR RESIDUALS. PATIENT CONTINUES TO HAVE LIQUID BROWN STOOL, FLEXI-SEAL RECTAL TUBE REMAINS IN PLACE.
--- NOTE | 2018-10-19 13:34 | NUR ---
0730: CARE ASSUMED, ASSESSMENT COMPLETED. PT RESTING IN BED, OPENS EYES SPONTANEOUSLY BUT DOES NOT FOLLOW COMMANDS. PROPOFOL 30MCG/KG/MIN, AMIODARONE 1MG/MIN INFUSING. HR 105 AFIB, MAP 68, VENT SETTINGS AC 16, Vt 450, PEEP 5, FIO2 25%, VSS. ORAL CARE COMPLETED, PT REPOSITIONED. TF AT GOAL 35ML/HR. 0845: DR. DERAS AT BEDSIDE, VENT CHANGES TO SPONTANEOUS WITH PRESSURE SUPPORT 15/5. 0910: PROPOFOL 15MCG/KG/MIN, PT'S Vt 200-300, RR CLIMBING TO 30'S AND 40'S, AWARE. RT AT BEDSIDE TO ADJUST SETTINGS. 940: PROPOFOL OFF AT THIS TIME PER PT AWAKE, ALERT AND FOLLOWING COMMANDS. LS COARSE BUT CLEAR WITH SUCTIONING. 1015: VENT BACK TO PREVIOUS AC SETTINGS BY RT FOR RR 40'S, Vt'S 100-300. DR. DERAS AWARE. 1030: HR 90-110, AMIODARONE DC'D PER 1200: PT RESTING IN BED, IS MODERATELY ANXIOUS AND REQUIRING FREQUENT ORAL AND ETT SUCTIONING, SECRETIONS ARE CLEAR IN LARGE AMOUNTS. PT ALERT AND ORIENTED X4, APPROPRIATE, FOLLOWING COMMANDS. 1340: PT REMAINS ANXOUS, LS COARSE IN BASES, LARGE AMOUNTS OF ETT AND ORAL SECRETIONS. PROPOFOL RESUMED AT 20MCG/KG/MIN PER DR. DERAS. WILL CONTINUE TO MONITOR FOR COMFORT.
--- NOTE | 2018-10-19 17:30 | NUR ---
1405: PROPOFOL INCREASED TO 30MCG/KG/MIN AT THIS TIME PT IS AWAKE AND ALERT, NODS YES WHEN ASKED IF TUBE IS MAKING HIM UNCOMFORTABLE. PT REPOSITIONED, ORAL AND ETT SUCTIONING COMPLETED. 1600: PT CONTINUES TO HAVE COPIOUS AMOUNTS OF ORAL SECRETIONS WHICH ARE NOW CLEAR AND FROTHY, REQUIRES FREQUENT SUCTIONING. VSS REMAIN STABLE, SPO2 LOW 90'S, HR <120, BP WNL. VENT SETTINGS AC 16, Vt 450, PEEP 5, FIO2 25%. PT LIGHTLY SEDATED, OPENS EYES SPONTANEOUSLY BUT DOES NOT FOLLOW DIRECTIONS AT THIS TIME. 1730: PT'S RECTAL TUBE BECAME DISLODGED. LINENS CHANGED, PT WASHED UP, NEW RECTAL TUBE INSERTED. PT TOLERATED PROCEDURE WELL, HR REMAINED <120, SPO2 90'S, BP WNL. PROPOFOL REMAINS AT 30MCG/KG/MIN, PT APPEARS COMFORTABLE, NO RESTLESSNESS/ANXIOUS BEHAVIORS NOTED. RR 20'S.
--- NOTE | 2018-10-19 19:00 | NUR ---
1900: PT RESTING COMFORTABLTY, VS REMAIN STABLE. PROPOFOL RATE AND VENT SETTINGS UNCHANGED. REPORT TO ONCOMING SHIFT.
--- NOTE | 2018-10-19 19:45 | NUR ---
ASSESSMENT/ASSUMED CARE PT INTUBATED AND ON [facility] VENT. OPENS EYES TO VERBAL STIMULI. FOLLOWS SIMPLE INSTRUCTIONS. LUNGS COARSE AND DECREASED IN THE BASES. VENT SETTINGS AC 16 TV 450 PEEP 5 FIO2 25%. SUCTIONED MODERATED AMT THIN CLEAR SECRECTIONS VIA ET TUBE. HEART RATE IRREGULAR-AFIB. BP STABLE. BT+ ABD SOFT. OG WITH TUBE FEED PIVOT 1.5 AT 35 ML/HR AND H2O 30 ML Q4HR. RESIDUAL 30 ML FORMULA REFED. PICC LINE TO RIGHT UPPER ARM, DRSG INTACT. SITE CLEAR. AMADOR CATH PATENT DRAINING CLEAR YELLOW URINE. FLEXI SEAL OUT, REPLACED. DRAINING LIQUID STOOL. ORAL CARE DONE. BED BATH STARTED. PT REPOSITIONED.
--- NOTE | 2018-10-19 22:00 | NUR ---
PT PUSHING OUT FLEXI SEAL, LEFT OUT. CURTIS CARE DONE AND REPOSITIONED
--- NOTE | 2018-10-20 | NUR ---
REASSESSMENT PT RESTING QUIELTY. NO VENT CHANGES. LUNGS CONT COARSE AND DECREASED. HEART RATE CONT AFIB. BP STABLE. RESIDUAL 140 ML FORMULA REFED. BILAT WRIST RESTRAINTS ON. PT OPENS EYES TO VERBAL AND FOLLOWS SMIPLE INSTRUCTIONS.
[2018-10-20 03:31] LABS: BASOPHILS ABSOLUTE AUTO 0.01 K/mm3 (0.00-0.23); BASOPHILS PERCENT AUTO 0 % (0-2); EOSINOPHILS ABSOLUTE AUTO 0.01 K/mm3 (0.00-0.68); EOSINOPHILS PERCENT AUTO 0 % (0-6); Hematocrit 32.8 % (37.0-53.0); Hemoglobin 10.5 g/dL (13.5-17.5); IMMATURE GRAN ABSOLUTE AUTO 0.13 K/mm3 (0.00-0.10); IMMATURE GRAN PERCENT AUTO 2 % (0-1); LYMPHOCYTES ABSOLUTE AUTO 0.91 K/mm3 (0.84-5.20); LYMPHOCYTES PERCENT AUTO 10 % (21-46); MONOCYTES ABSOLUTE AUTO 0.61 K/mm3 (0.16-1.47); MONOCYTES PERCENT AUTO 7 % (4-13); Mean Corpuscular HGB 32.9 pg (26.0-34.0); Mean Corpuscular Volume 103 fL (80-100); Mean Platelet Volume 11.8 fL (9.1-12.4); NEUTROPHILS ABSOLUTE AUTO 7.24 K/mm3 (1.96-9.15); NEUTROPHILS PERCENT AUTO 81 % (41-73); NRBC ABSOLUTE 0.03 K/mm3 (0.00-0.02); NRBC Auto 0.3 /100 WBC (0.0-0.2); Platelet Count 253 K/mm3 (150-400); RDW Coefficient Variation 14.8 % (11.7-14.2); RDW Standard Deviation 54.6 fL (35.1-46.3); Red Blood Cell Count 3.19 M/mm3 (4.30-5.90); White Blood Cell Count 8.91 K/mm3 (4.00-11.30)
[2018-10-20 03:46] LABS: Anion Gap 7 mmol/L (6-16); Blood Urea Nitrogen 37 mg/dL (8-24); Bun/Creatinine Ratio 35.2 (12.0-20.0); CO2, Blood 32 mmol/L (21-32); Calcium, Blood 8.5 mg/dL (8.5-10.1); Chloride, Blood 110 mmol/L (98-108); Creatinine, Blood 1.05 mg/dL (0.60-1.20); Glomerular Filtration Rate >60 (60-); Glucose, Blood 116 mg/dL (70-99); Magnesium, Blood 2.4 mg/dL (1.6-2.4); Phosphorus, Blood 4.1 mg/dL (2.5-4.9); Potassium, Blood 3.3 mmol/L (3.5-5.5); Sodium, Blood 149 mmol/L (136-145)
--- NOTE | 2018-10-20 04:00 | NUR ---
REASSESSMENT PT CONT INTUBATED AND ON MECH VENT. NO VENT CHANGES. LUNGS CLEAR BUT DECREASED. HEART RATE CONT AFIB. BP STABLE. RESIDUAL CHECK 30ML REFED. CXR DONE. REPOSITIONED. ORAL CARE DONE.
[2018-10-20 05:16] LABS: PCO2 Arterial 45.2 mmHg (35-45); PO2 Arterial 63.9 mmHg (80-100); pH Blood Arterial 7.45 (7.35-7.45)
--- NOTE | 2018-10-20 06:26 | NUR ---
SHIFT SUMMARY PT CONT INTUBATED AND ON [facility] VENT. NO VENT CHANGES DURING THE NIGHT. CURRENT VENT SETTINGS AC 16 TV 450 PEEP 5 FIO2 25%. WEANING DONE THIS AM. PT UNABLE TO MAINTAINE TV AND RESP RATE UP IN THE 30'S. RT INCREASED PS TO 15/5 TO WORK LUNGS. THAN PT PLACED BACK ON VENT. PT MED WITH PROPOFOL FOR SEDATION AT 30 MCQ/KG/MIN. AWAKENS EASILY AND FOLLOWS INSTRUCTIONS. LUNGS COARSE AT START OF NIGHT BUT AFTER SUCTIONING LARGE AMT THIN CLEAR SECRECTIONS VIA ET TUBE AND MOUTH LUNGS SOUNDS IMPROVED TO CLEAR BUT DECREASED. HEART CONT AFIB 100-110'S. BP STABLE. BT+ RESIDUALS 20-140 ML. TUBE FEED PIVOT 1.5 AT GOAL RATE OF 35 ML/HR WITH H2O 30 ML Q4HR. PT KEPT PUSHING OUT FLEXI SEAL, LEFT OUT AFTER TRYING TO REPLACE TWICE. PT INCONT LIQUID BROWN STOOL. PT REPSITIONED Q2HR. BILAT WRIST RESTRAINTS ON. POTASSIUM 3.3 THIS MORNING. KCL IVPB STARTED. REPORT TO ON COMING NURSE
--- NOTE | 2018-10-20 08:10 | NUR ---
0730: CARE ASSUMED, ASSESSMENT COMPLETED. VENT SETTINGS AC 16, Vt 450, PEEP 5, FIO2 25%, PROPOFOL 30MCG/KG/MIN, PT APPEARS TO BE COMFORTABLY SEDATED, NO RESTLESSNESS OR AGITATION NOTED. SPO2 >90%, Vt 400-500'S, RR 20'S. ORAL AND ETT SUCTIONING DONE, SECRETIONS REMAIN LARGE, CLEAR, AND FROTHY. LS CLEAR AT THIS TIME, OCCASIONAL COUGH NOTED. AM CARES COMPLETE, WILL CONTINUE TO MONITOR. TF AT 35ML/HR PER ORDERS.
--- NOTE | 2018-10-20 09:37 | NUR ---
0935: SEDATION OFF AT THIS TIME, PT WAKES UP WITHIN 5 MINUTES AND IS FOLLOWING COMMANDS AND ANSWERING YES AND NO QUESTIONS WITH NODS, NEURO'S GROSSLY INTACT. DENIES PAIN, PHYSICAL THERAPY AT BEDSIDE FOR TREATMENT. ORAL AND ET SUCTIONING COMPLETED. VENT SETTINGS UNCHANGED. WILL RESUME SEDATION FOR COMFORT AFTER PT IS COMPLETE.
--- NOTE | 2018-10-20 10:05 | NUR ---
PT ABLE TO FOLLOW COMMANDS AND PARTICIPATE IN PHYSICAL THERAPY, SECRETIONS INCREASE WHEN PROPOFOL IS OFF, MORE FREQUENT SUCTIONING REQUIRED. TV TURNED ON PER PT REQUEST, PROPOFOL RESUMED AT 30MCG/KG/HR. PT DENIES PAIN OR DISCOMFORT AT THIS TIME.
--- NOTE | 2018-10-20 13:06 | NUR ---
1200: PT CONTINUES TO REST, APPEARS COMFORTABLE. VENT AND PROPOFOL SETTINGS UNCHANGED, PT'S RR 20'S, Vt'S 400'S, SPO2 MID 90'S. LS CTA, DIM IN BASES, SECRETIONS SLOW WHEN PT IS SEDATED, ET AND ORAL SUCTIONING REQUIRED LESS OFTEN. EXTREMS ELEVATED ON PILLOWS, LASIX ADMINISTERED. 1305: ROM AND SKIN CARE COMPLETED, DR. DERAS AT BEDSIDE, OGT FLUSH INCREASED TO 150ML WATER Q4H PER ORDERS.
--- NOTE | 2018-10-20 17:42 | NUR ---
1500: PT REPOSITIONED, ORAL AND ET SUCTIONING DONE, SECRETIONS REMAIN CLEAR AND IN LARGE AMOUNTS. NO CHANGES TO VENT SETTINGS OR PROPOFOL, PT SEEMS COMFORTABLE. VSS, NO AGITATION/RESTLESSNESS NOTED. PT OPENS EYES TO TOUCH, IS LIGHTLY SEDATED. 1700: 3 LIQUID BM'S TODAY, CONTAINED IN ATTENDS. VS STABLE AT THIS TIME, HR AFIB 100-120, BP NORMOTENSIVE. SPO2 MID 90'S, Vt'S 400'S, RR 20'S. PT RESTING COMFORTABLY AT THIS TIME WITH NO RESTLESSNESS/AGITATION. ROM PERFORMED WHILE REPOSITIONING. VENT SETTINGS AND PROPOFOL GTT RATE UNCHANGED. LS DIMINISHED BUT CLEAR.
--- NOTE | 2018-10-20 18:34 | NUR ---
NO CHANGES NOTED IN PT STATUS AT THIS TIME. VENT SETTINGS AC 16, Vt 450, FIO2 25%, PEEP 5. PROPOFOL INFUSING AT 30MCG/KG/MIN, PT REMAINS LIGHTLY SEDATED, WILL OPEN EYES TO VERBAL STIMULUS, WILL ANSWER QUETIONS BY BLINKING. VSS, AMADOR PATENT AND DRAINING, TF AT 35ML/HR WITH 150ML FLUSHES. REPORT TO ONCOMING SHIFT.
--- NOTE | 2018-10-20 19:30 | NUR ---
ASSESSMENT/ASSUMED CARE PT CONT INTUBATED AND ON MECH VENT. OPENS EYES TO VERBAL STIMULI. FOLLOWS SOME SIMPLE INSTRUCTIONS. LUNGS CLEAR BUT DECREASED IN THE BASES. SUCTIONED LARGE AMT CLEAR TO WHITE SECRECTIONS VIA ET TUBE. PT WITH PRODUCTIVE COUGH. LARGE AMT CLEAR ORAL SECRECTIONS SUCTIONED, ORAL CARE DONE. RT AT BEDSIDE. HEART RATE IRREGULAR-AFIB. BP STABLE. GENERAL EDEMA. BT+ ABD SOFT. OG WITH TUBE FEED PIVOT 1.5 AT GOAL RATE OF 35 ML/HR WITH H2O 150 ML Q4HR. RESIDUAL 45 ML REFED. PICC LINE TO RIGHT UPPER ARM WITH PROPFOL AT 30 MCQ/KG/MIN AND NS AT TKO FOR ANTIBIOTICS. PT REPOSITIONED TO RIGHT WITH HOB UP. BILAT SOFT WRIST RESTRAINTS ON. SCD'S ON. ATTENDS INTACT.
--- NOTE | 2018-10-20 21:00 | NUR ---
BEDBATH BED BATH DONE. PT INCONT OF STOOL. ATTENDS AND LINENS CHANGED.
--- NOTE | 2018-10-21 00:06 | NUR ---
REASSESSMENT PT RESTING QUIELTY. LUNGS CLEAR BUT DECREASED IN THE BASES. SUCTIONED MODERATE AMT CLEAR TO WHITE SECRECTIONS VIA ET TUBE. ORAL CARE DONE. RESIDUAL CHECK ZERO. BP STABLE. LOPRESSOR GIVEN VIA OG. PT REPOSITIONED
[2018-10-21 05:04] LABS: BASOPHILS ABSOLUTE AUTO 0.04 K/mm3 (0.00-0.23); BASOPHILS PERCENT AUTO 0 % (0-2); EOSINOPHILS ABSOLUTE AUTO 0.14 K/mm3 (0.00-0.68); EOSINOPHILS PERCENT AUTO 2 % (0-6); Hematocrit 35.2 % (37.0-53.0); Hemoglobin 11.4 g/dL (13.5-17.5); IMMATURE GRAN ABSOLUTE AUTO 0.12 K/mm3 (0.00-0.10); IMMATURE GRAN PERCENT AUTO 1 % (0-1); LYMPHOCYTES ABSOLUTE AUTO 1.32 K/mm3 (0.84-5.20); LYMPHOCYTES PERCENT AUTO 14 % (21-46); MONOCYTES ABSOLUTE AUTO 0.46 K/mm3 (0.16-1.47); MONOCYTES PERCENT AUTO 5 % (4-13); Mean Corpuscular HGB 33.5 pg (26.0-34.0); Mean Corpuscular HGB Conc 32.4 g/dL (31.5-36.5); Mean Corpuscular Volume 104 fL (80-100); NEUTROPHILS ABSOLUTE AUTO 7.44 K/mm3 (1.96-9.15); NEUTROPHILS PERCENT AUTO 78 % (41-73); NRBC ABSOLUTE 0.02 K/mm3 (0.00-0.02); NRBC Auto 0.2 /100 WBC (0.0-0.2); Platelet Count 292 K/mm3 (150-400); RDW Coefficient Variation 14.9 % (11.7-14.2); RDW Standard Deviation 55.4 fL (35.1-46.3); White Blood Cell Count 9.52 K/mm3 (4.00-11.30)
[2018-10-21 05:28] LABS: Magnesium, Blood 2.3 mg/dL (1.6-2.4)
[2018-10-21 05:29] LABS: Anion Gap 6 mmol/L (6-16); Blood Urea Nitrogen 36 mg/dL (8-24); Bun/Creatinine Ratio 33.3 (12.0-20.0); CO2, Blood 32 mmol/L (21-32); Calcium, Blood 8.7 mg/dL (8.5-10.1); Chloride, Blood 110 mmol/L (98-108); Creatinine, Blood 1.08 mg/dL (0.60-1.20); Glomerular Filtration Rate >60 (60-); Glucose, Blood 120 mg/dL (70-99); Phosphorus, Blood 3.8 mg/dL (2.5-4.9); Potassium, Blood 2.9 mmol/L (3.5-5.5); Sodium, Blood 148 mmol/L (136-145)
[2018-10-21 05:34] LABS: PO2 Arterial 56.7 mmHg (80-100); pH Blood Arterial 7.49 (7.35-7.45)
--- NOTE | 2018-10-21 05:50 | NUR ---
DR DERAS NOTIFIED REGARDING POTASSIUM 2.9, RECEIVED ORDER FOR KCL 40 MEQ IVPB
--- NOTE | 2018-10-21 06:17 | NUR ---
SHIFT SUMMARY PT CONT INTUBATED AND ON MECH VENT. NO VENT CHANGES. PT FAILED WEANING THIS AM DUE TO LOW TV AND INCREASED RESP RATE. SUCTIONED FREQUENTLY ORALLY AND VIA ET TUBE. POTASSIUM DOWN TO 2.9, KCL REPLACEMENT INFUSING. PT INCONT BROWN LIQUID STOOL. TURNED AND CURTIS CARE DONE FREQUENTLY. VSS. REPORT TO ON COMING NURSE
--- NOTE | 2018-10-21 09:00 | NUR ---
ASSUMING CARE: 0730-ASSUMED CARE OF PT. PT IS ASLEEP, SEDATED WITH PROPOFOL @ 30MCG/KG/MIN. PT HAS AN OG TUBE WITH PIVOT INFUSING @ 30ML/HR GOAL. PT DOES SLIGHTLY OPENS EYES TO VOICE WITH 30MCG/KG/MIN OF PROPOFOL INFUSING. SEDATION VACATION WAS DONE-PT OPENS EYES TO VOICE, FOLLOWING COMMANDS. ANSWERING YES/NO QUESTIONS APPROPRIATELY BY BLINKING EYES ONCE FOR NO AND BLINKING EYES TWICE FOR YES. 0745-PT WAS PLACED ON SPONTANEOUS BREATHING TRIAL AT THIS TIME STARTING WITH 7/5 GRADUALLY INCREASED TO HIGH 12/5. PROPOFOL WAS TURN OFF AT THE BEGINNING OF THE WEAN BUT PT STARTED MORE AND MORE TACHYPNEIC AND SLIGHLTY ANXIOUS, PULLING LOW TV AND INCREASING WORK OF BREATHING THUS STARTING THE PROPOFOL @ 10 MCG/KG/MIN AND THEN TO 15MCG/KG/MIN TO HELP PT WITH THE SBT. PT ONLY LASTED 8 MINS ON THE WEAN. 0900-PT IS CURRENTLY BACK ON 30MCG/KG/MIN. INCREASED ORAL SECRETIONS.
--- NOTE | 2018-10-21 10:18 | NUR ---
PT IS SITTING ON THE CHAIR AT THIS TIME. SEDATION WAS DECREASED TO HALF THE DOSE FOR THE PHYSICAL THERAPY THEN WAS TURNED OFF. PT DID FOLLOW COMMANDS, DID SOME ACTIVITIES BUT SEEMED TO BE WEAK. PT IS CURRENTLY STILL ON THE CHAIR BUT SEDATION WAS RESTARTED.
--- NOTE | 2018-10-21 10:59 | NUR ---
Met with property caretaker and then nursing and intesivist and family. Pt off sedation and physician spoke with pt about trach and peg tube and plan of care. pt agreed to let us contact family. Review of advance directive.
--- NOTE | 2018-10-21 17:08 | NUR ---
1545-PT WAS TRANSFERED BACK TO BED. PT IS SLIGHTLY HYPOTENSIVE WITH PRECEDEX DRIP. PT IS WIDE AWAKE ON 0.3 MCG/KG/HR. STILL VENTED ON AC MODE. 1623-PT WAS SWITCHED BACK TO PROPOFOL AT THIS TIME @ 30MCG/KG/MIN. STOOL SAMPLE WAS SENT FOR C-DIFF. 1700-PT IS SLEEPING SOUNDLY AT THIS TIME.
--- NOTE | 2018-10-21 18:34 | NUR ---
SHIFT SUMMARY: PT IS SEDATED AND VENTED AT THIS TIME. PT IS SEDATED WITH PROPOFOL AT THIS TIME @ 20MCG/KG/MIN. PT WAS SEDATED WITH PRECEDEX MOST OF THE DAY BUT PT WAS TOO WIDE AWAKE WITH 0.3MCG/KG/HR WITH BP LOW 80s-90s WITH MAP IN THE GREATER THAN 60s. PT IS STILL ON TUBE FEEDING AND TOLERATING WELL. PT HAS BEEN NODDING/SHAKING HIS HEAD FOR YES/NO QUESTIONS. PT IS FOLLOWING COMMANDS. PT TRIES TO COMMNUNICATE BUT IS HAVING A HARD TIME WRITING AND EVEN USING THE COMMUNICATION BOARD.
--- NOTE | 2018-10-21 19:00 | NUR ---
ASSUMED CARE ASSUMED CARE OF PATIENT. REMAINS INTUBATED- AC 15, TV 450, PEEP 5, FIO2 25%. RR 16-20 AT THIS TIME. SEDATED WITH PROPOFOL @ 20MCG/KG/MIN. OPENS EYES TO STIMULI. SQUEEZED HANDS TO COMMAND AND NODS/SHAKES HEAD YES/NO TO QUESTIONS. MOVES ALL EXTREMITES WEAKLY. ELANA, 2MM. BILATERAL SOFT WRIST RESTRAINTS REMAIN IN PLACE TO PREVENT SELF-EXTUBATION. MONITOR SHOWS AFIB, RATE 100-110a. SBP 90s. OG WITH PIVOT 1.5 @ GOAL RATE OF 35CC/HR. 150CC H20 FLUSH 24H. AMAODR PATENT AND DRAINING TO GRAVITY. PAS TO BLE. SEE SHIFT ASSESSMENT FOR FULL ASSESSMENT.
--- NOTE | 2018-10-21 19:22 | NUR ---
Multiple short visits today. Review of needs with nursing. suggest splint boots and increase skin care. Nursing tried to get pt to relay rosa name he attemtpted but not able. Pt tearfull with some interactions and display of understanding. Will continue supportive vistis.
[2018-10-22 05:01] LABS: BASOPHILS ABSOLUTE AUTO 0.03 K/mm3 (0.00-0.23); BASOPHILS PERCENT AUTO 0 % (0-2); EOSINOPHILS PERCENT AUTO 2 % (0-6); Hematocrit 33.5 % (37.0-53.0); Hemoglobin 10.6 g/dL (13.5-17.5); IMMATURE GRAN ABSOLUTE AUTO 0.06 K/mm3 (0.00-0.10); IMMATURE GRAN PERCENT AUTO 1 % (0-1); LYMPHOCYTES PERCENT AUTO 14 % (21-46); MONOCYTES ABSOLUTE AUTO 0.37 K/mm3 (0.16-1.47); MONOCYTES PERCENT AUTO 4 % (4-13); Mean Corpuscular HGB 32.5 pg (26.0-34.0); Mean Corpuscular HGB Conc 31.6 g/dL (31.5-36.5); Mean Corpuscular Volume 103 fL (80-100); Mean Platelet Volume 11.8 fL (9.1-12.4); NEUTROPHILS ABSOLUTE AUTO 6.85 K/mm3 (1.96-9.15); NEUTROPHILS PERCENT AUTO 79 % (41-73); Platelet Count 272 K/mm3 (150-400); RDW Coefficient Variation 14.6 % (11.7-14.2); Red Blood Cell Count 3.26 M/mm3 (4.30-5.90); White Blood Cell Count 8.71 K/mm3 (4.00-11.30)
[2018-10-22 05:20] LABS: Anion Gap 5 mmol/L (6-16); Blood Urea Nitrogen 35 mg/dL (8-24); Bun/Creatinine Ratio 34.3 (12.0-20.0); CO2, Blood 32 mmol/L (21-32); Calcium, Blood 8.6 mg/dL (8.5-10.1); Chloride, Blood 110 mmol/L (98-108); Creatinine, Blood 1.02 mg/dL (0.60-1.20); Glomerular Filtration Rate >60 (60-); Glucose, Blood 121 mg/dL (70-99); Potassium, Blood 2.9 mmol/L (3.5-5.5); Sodium, Blood 147 mmol/L (136-145)
--- NOTE | 2018-10-22 06:42 | NUR ---
SHIFT SUMMARY NO ACUTE CHANGES DURING NOC. REMAINS INTUBATED- AC 16, TV 450, PEEP 5, FIO2 NOW 30%. SX'D MODERATE AMOUNTS OF THICK YELLOW SPUTUM VIA ETT. MODERATE AMOUNTS OF ORAL SECRETIONS AT TIMES. SEDATED WITH PROPOFOL BETWEEN 20-30MCG/KG/MIN- NOW INFUSING @ 30MCG/KG/MIN. OPENS EYES TO STIMULI. OCCASIONALLY FOLLOWS SIMPLE COMMANDS. BILATERAL SOFT WRIST RESTRAINTS REMAIN IN PLACE. OG WITH PIVOT 1.5 INFUSING @ GOAL RATE OF 35CC/HR. OG RESIDUALS HAVE BEEN BETWEEN 100-140CC. INCONTINENT OF LOOSE STOOL X 1. AMADOR PATENT AND DRAINING CLEAR YELLOW URINE TO GRAVITY. PICC LINE NOTED. PAS TO BLE. POTASSIUM RESULT OF 2.[address] EDGE- NEW ORDERS RECEIVED. WILL REPORT TO DAY SHIFT RN WHEN AVAILABLE.
--- NOTE | 2018-10-22 07:36 | NUR ---
START OF SHIFT NOTE: RECEIVED REPORT FROM RAFAEL WALLACE RN, ASSUMED CARE, PATIENT IS INTUBATED AND SEDATED BUT OPENS HIS EYES TO VOICE, AND SLIGHTLY SQUEEZED HAND WHEN ASKED, ALSO FOLLOWS COMMANDS TO NOD AND SHAKE HEAD, DENIES PAIN BY SHAKING HEAD WHEN ASKED, LUNG SOUNDS ARE SLIGHTLY COARSE IN BASES OTHERWISE CLEAR, A-FIB WITH RATE IN 110'S, BOWEL TONES HYPERACTIVE AND TYMPANIC, AMADOR CATHETER IN PLACE WITH TEMP PROBE, TEMP AT THIS TIME 99.1, SCROTUM EDEMATOUS, PEDAL PULSES VIA DOPPLER, BILATERAL LOWER AND UPPER EXTREMITIES SHOW EDEMA, MORE SO ON RIGHT SIDE THAN LEFT, PATIENT WAS SUCTIONED AND ORAL CARE PROVIDED, HAD THICK YELLOW SPUTUM, BM NOTED, PATIENT WAS CLEANED AND REPOSITIONED, TOLERATED WELL, TUBE FEED INFUSING VIA OG AT 35 CC/HR PIVOT 1.5, WITH WATER FLUSH 150 CC'S Q 4 HOURS, PATIENT ON PROPOFOL AT 30 MCG, RT IN TO SEE PATIENT, CALL LIGHT IN REACH, WILL CONTINUE TO MONITOR.
--- NOTE | 2018-10-22 08:39 | NUR ---
DR. RETANA IN TO SEE PATIENT, DISCUSSED BLOOD PRESSURE FLUCTUATIONS DUE TO LOPRESSOR AND LASIX WITH DR. RETANA, ALSO REPORTED NEWLY NOTED THICK YELLOW SECRETIONS.
--- NOTE | 2018-10-22 08:53 | NUR ---
DR. EDGE IN TO SEE PATIENT, DISCUSSED PATIENTS LOW BLOOD PRESSURE AND IMPENDING TRACH AND PEG PLACEMENT NEXT WEEK, DR. EDGE WILL MAKE CHANGE IN BLOOD PRESSURE MEDICATIONS.
--- NOTE | 2018-10-22 09:49 | NUR ---
PATIENT HAS A LOW GRADE FEVER WITH TEMPS FROM 99.1 TO 100.0, ALSO HR NOW IN 120'S TO 130'S SUSTAINING AND BP'S 90'S OVER 60'S WITH MAP GREATER THAN 70, DISCUSSED WITH DR. EDGE, NEW ORDERS RECEIVED.
--- NOTE | 2018-10-22 10:38 | NUR ---
PATIENT RECEIVED 650 MG TYLENOL VIA OG TUBE, ALSO RECEIVED 500 CC NS BOLUS FOR LOW BLOOD PRESSURES AND ALBUMIN 25 % 100CC, PATIENT NEEDS TO BE SUCTIONED FREQUENTLY D/T INCREASED SECRETIONS, CALL LIGHT IN REACH, WILL CONTINUE TO MONITOR.
--- NOTE | 2018-10-22 12:44 | NUR ---
REPORT GIVEN TO LISETTE GARRETT RN, AND NERI BERNARD, STUDENT NURSE.
--- NOTE | 2018-10-22 17:57 | NUR ---
SHIFT SUMMARY PT REMAINS ON VENT AC /30%/5. PROPROFOL RUNNING AT 30MCG/KG/MIN. PT APPEARS TO BE HANDLING OG FEEDINGS WELL, WITH RESIDUAL OF LESS THAN 30ML'S. PT IS HAVING VERY LOOSE STOOL. PT DID SHOW RESPONSE TO PAINFUL STIMULI. PTS SYSTOLIC BP HAS RANGED FROM 80'S- 110 DURING SHIFT, WITH HR IN THE 90'S.
--- NOTE | 2018-10-22 19:00 | NUR ---
ASSUMED CARE ASSUMED CARE OF PATIENT. REMAINS INTUBATED- AC 16, TV 450, PEEP 5, FIO2 30%. SUCTIONING MODERATE AMOUNTS OF THICK YELLOW SPUTUM VIA ETT. SEDATED WITH PROPOFOL @ 30MCG/KG/MIN. PT OPENS EYES TO STIMULI. NOT FOLLOWING ANY COMMANDS, BUT DOES MOVE ALL EXTREMITIES WEAKLY. BILATERAL SOFT WRIST RESTRAINTS IN PLACE. ELANA, 3MM. MONITOR SHOWS AFIB, RATE 100-120s. BP STABLE. AFEBRILE. OG WITH PIVOT 1.5 INFUSING @ GOAL RATE OF 35CC/HR. AMADOR PATENT AND DRAINING CLEAR YELLOW URINE TO GRAVITY. PAS TO BLE. ALYSSIA PICC NOTED. SEE SHIFT ASSESSMENT FOR FULL ASSESSMENT.
[2018-10-23 04:09] LABS: BASOPHILS ABSOLUTE AUTO 0.02 K/mm3 (0.00-0.23); BASOPHILS PERCENT AUTO 0 % (0-2); EOSINOPHILS PERCENT AUTO 2 % (0-6); Hematocrit 31.2 % (37.0-53.0); IMMATURE GRAN ABSOLUTE AUTO 0.04 K/mm3 (0.00-0.10); IMMATURE GRAN PERCENT AUTO 1 % (0-1); LYMPHOCYTES ABSOLUTE AUTO 1.23 K/mm3 (0.84-5.20); LYMPHOCYTES PERCENT AUTO 14 % (21-46); MONOCYTES ABSOLUTE AUTO 0.32 K/mm3 (0.16-1.47); MONOCYTES PERCENT AUTO 4 % (4-13); Mean Corpuscular HGB 33.1 pg (26.0-34.0); Mean Corpuscular HGB Conc 32.1 g/dL (31.5-36.5); Mean Corpuscular Volume 103 fL (80-100); NEUTROPHILS ABSOLUTE AUTO 6.71 K/mm3 (1.96-9.15); NEUTROPHILS PERCENT AUTO 79 % (41-73); Platelet Count 250 K/mm3 (150-400); RDW Coefficient Variation 14.6 % (11.7-14.2); Red Blood Cell Count 3.02 M/mm3 (4.30-5.90); White Blood Cell Count 8.52 K/mm3 (4.00-11.30)
[2018-10-23 04:27] LABS: Albumin, Blood 2.8 g/dL (3.4-5.0); Anion Gap 5 mmol/L (6-16); Blood Urea Nitrogen 30 mg/dL (8-24); Bun/Creatinine Ratio 34.1 (12.0-20.0); CO2, Blood 31 mmol/L (21-32); Calcium, Blood 8.5 mg/dL (8.5-10.1); Chloride, Blood 111 mmol/L (98-108); Creatinine, Blood 0.88 mg/dL (0.60-1.20); Glomerular Filtration Rate >60 (60-); Glucose, Blood 104 mg/dL (70-99); Phosphorus, Blood 2.9 mg/dL (2.5-4.9); Potassium, Blood 2.9 mmol/L (3.5-5.5); Sodium, Blood 147 mmol/L (136-145)
--- NOTE | 2018-10-23 06:08 | NUR ---
SHIFT SUMMARY NO ACUTE CHANGES DURING NOC. REMAINS INTUBATED- AC 16, TV 450, PEEP 5, FIO2 30%. COPIOUS AMOUNTS OF THICK YELLOW SPUTUM SUCTIONED VIA ETT. ALSO WITH COPIOUS ORAL SECRETIONS. SEDATED WITH PROPOFOL @ 30MCG/KG/MIN T/O SHIFT. OPENS EYES TO STIMULI. MOVES ALL EXTREMITIES WEAKLY. NOT FOLLOWING COMMANDS AT THIS TIME. DOES NOD/SHAKE HEAD "YES/NO". BILATERAL SOFT WRIST RESTRAINTS IN PLACE. OG WITH PIVOT 1.5 AT GOAL RATE OF 35CC/HR. OG RESIDUALS 10-110CC T/O NOC. INCONTINENT OF LOOSE BROWN STOOL X 2. AMADOR PATENT AND DRAINING CLEAR YELLOW URINE. PAS TO BLE. WILL REPORT TO DAY SHIFT RN WHEN AVAILABLE.
--- NOTE | 2018-10-23 07:56 | NUR ---
SEDATION VACATION PROPROFOL TURNED DOWN TO 10MCG/KG/MIN. PT IS CALM AND FOLLOWS COMMANDS. PT APPEARS COMFORTABLE AND IS WATCHING TV.
--- NOTE | 2018-10-23 08:06 | NUR ---
DR. EDGE NOTIFIED OF PT'S POTASSIUM. RECEIVED RODER TO GIVE 40MEQ PO NOW IN ADDITION TO THE DAILY DOSE OF 40 MEQ AND ALSO TO CHANGE THE SCHEDUELD DOSE FROM DAILY TO BID.
--- NOTE | 2018-10-23 13:25 | NUR ---
PT NODS HEAD YES WHEN ASKED IF HE IS IN PAIN. ONLY TYLENOL ON THE JUL. DR. EDGE NOTIFIED AND RECEIVED ORDER FOR FENTANYL, SEE ORDERS.
--- NOTE | 2018-10-23 17:32 | NUR ---
10/23/18 1732 Elsie Herbert PROCEDURE ROOM: ICU 12. PLAN FOR BINGO CASHIER TO GIVE SEDATION VIA PROPOFOL GTT. BINGO CASHIER confirms NPO status and agrees with scheduled surgery.
--- NOTE | 2018-10-23 18:21 | NUR ---
SHIFT SUMMARY PT WAS OFF OF PROPROFOL FOR MOST OF SHIFT. PT WAS CALM AND ATTEMPTING TO COMMUNICATE. PT IS VERY WEAK AND COULD NOT LIFT HAND OR POINT AT COMMUNICATION BOARD, BUT WAS ABLE TO NOD YES OR NO TO QUESTIONS. PEG TUBE PLACED AROUND [address] BLANCHARD. PROPROFOL TURNED BACK UP TO 30MCG/KG/MIN. FEEDINGS ARE TO START AGAIN TOMORROW MORNING. PT IS RESTING AND APPEARS COMFORTABLE AT THIS TIME.
--- NOTE | 2018-10-23 20:03 | NUR ---
PATIENT INTUBATED AND SEDATED WITH PROPOFOL AT 30 MCG, ETT IN PLACE WITH VENT SET AT AC 16, TV 450, PEEP 5, FIO2 30% PATEINT OPENS EYES TO STIMULI. NEW PEG TUBE IN PLACE TO LEFT UPPER QUAD. SITE CLEAR.
[2018-10-24 03:59] LABS: BASOPHILS ABSOLUTE AUTO 0.02 K/mm3 (0.00-0.23); BASOPHILS PERCENT AUTO 0 % (0-2); EOSINOPHILS ABSOLUTE AUTO 0.21 K/mm3 (0.00-0.68); EOSINOPHILS PERCENT AUTO 3 % (0-6); Hematocrit 29.2 % (37.0-53.0); Hemoglobin 9.3 g/dL (13.5-17.5); IMMATURE GRAN ABSOLUTE AUTO 0.04 K/mm3 (0.00-0.10); IMMATURE GRAN PERCENT AUTO 1 % (0-1); LYMPHOCYTES ABSOLUTE AUTO 0.91 K/mm3 (0.84-5.20); LYMPHOCYTES PERCENT AUTO 14 % (21-46); MONOCYTES ABSOLUTE AUTO 0.27 K/mm3 (0.16-1.47); MONOCYTES PERCENT AUTO 4 % (4-13); Mean Corpuscular HGB 33.3 pg (26.0-34.0); Mean Corpuscular HGB Conc 31.8 g/dL (31.5-36.5); Mean Corpuscular Volume 105 fL (80-100); NEUTROPHILS ABSOLUTE AUTO 5.31 K/mm3 (1.96-9.15); NEUTROPHILS PERCENT AUTO 79 % (41-73); Platelet Count 211 K/mm3 (150-400); RDW Coefficient Variation 14.6 % (11.7-14.2); RDW Standard Deviation 55.1 fL (35.1-46.3); Red Blood Cell Count 2.79 M/mm3 (4.30-5.90); White Blood Cell Count 6.76 K/mm3 (4.00-11.30)
[2018-10-24 04:13] LABS: Albumin, Blood 3.2 g/dL (3.4-5.0); Anion Gap 4 mmol/L (6-16); Blood Urea Nitrogen 24 mg/dL (8-24); Bun/Creatinine Ratio 29.2 (12.0-20.0); CO2, Blood 29 mmol/L (21-32); Calcium, Blood 8.7 mg/dL (8.5-10.1); Chloride, Blood 114 mmol/L (98-108); Creatinine, Blood 0.82 mg/dL (0.60-1.20); Glomerular Filtration Rate >60 (60-); Glucose, Blood 86 mg/dL (70-99); Phosphorus, Blood 2.5 mg/dL (2.5-4.9); Potassium, Blood 3.3 mmol/L (3.5-5.5); Sodium, Blood 147 mmol/L (136-145)
--- NOTE | 2018-10-24 06:06 | NUR ---
SUMMARY PATIENT REMAINS INTUBATED AND SEDATED WITH PROPOFOL AT 30 MCG, PATIENT AWAKENS TO SLIGHT STIMULI FOLLOWING SIMPLE DIRECTIONS AND FALLING BACK TO SLEEP WHEN UNDISTURBED. VENT SET AT AC 16, TV 450, PEEP 5, FIO2 25%. SUCTIONING CLEAR TO WHITE SECRETIONS. PEG TUBE IN PLACE TO LEFT UPPER QUAD, MEDS GIVEN WITHOUT DIFFICULTY USING GRAVITY TECHNIQUE. HEART MONITOR CONTINUES TO SHOW AFIB NOW HAVING OCCASIONAL PVC.
--- NOTE | 2018-10-24 07:10 | NUR ---
ASSUMED CARE NOTE REPORT RECEIVED FROM SARWAT ADAMS. BEDSIDE ROUNDING DONE. PEG TUBE SITE ASSESSED BY THIS RN AND SARWAT ADAMS. PT REMAINS INTUBATED AND SEDATED ON PROPOFOL GTT. NO S/SX DISTRESS NOTED. PT OPENS EYES TO VERBAL STIMULI AND FOLLOWS COMMANDS APPROPRIATELY ALTHOUGH VERY WEAK AND DECONDITIONED. AMADOR CATHETER REMAINS PATENT AND DRAINING TO GRAVITY. LR RUNNING AT 75ML/HR PER ORDERS. PLAN TO RESUME TF PER PREVIOUS ORDERS THIS MORNING, ORDERS VERIFIED WITH SARWAT ADAMS. WILL CONT TO MONITOR PT.
--- NOTE | 2018-10-24 15:18 | NUR ---
HR IN 130S DR EDGE NOTIFIED THAT PT'S HR TRENDING UP SINCE MORNING AND IS NOW JUMPING INTO 130S. DR EDGE AWARE THAT PT'S NEXT LOPRESSOR NOT DUE UNTIL 1800. ORDERS TO GIVE 1800 LOPRESSOR NOW. WILL CONT TO MONITOR PT.
--- NOTE | 2018-10-24 18:36 | NUR ---
SHIFT SUMMARY NO ACUTE CHANGES THROUGHOUT SHIFT. PT REMAINS INTUBATED WITH PLAN TO HAVE TRACH PLACED THIS WEEK. PT SEDATED ON PROPOFOL. BED IN LOWEST POSITION, UPPER SIDE RAILS RAISED. CALL LIGHT IN REACH WITH MUSIC ON. WILL CONT TO MONITOR PT THROUGH TO CHANGE OF SHIFT.
--- NOTE | 2018-10-24 20:35 | NUR ---
PATIENT REMAINS INTUBATED AND SEDATED WITH PROPOFOL AT 30 MCG, AWAKENS TO VERBAL STIMULI FOLLOWING SIMPLE DIRECTIONS. VENT SET AT AC 16, TV 450, PEEP 5, FIO2 25%. PEG TUBE IN PLACE WITH TUBE FEEDING AT GOAL RATE OF 45/HR. AFIB CONTINUES WITH CONTROLLED RATE. PATIENT INCONT OF LARGE LOOSE BROWN STOOL.
[2018-10-25 04:24] LABS: BASOPHILS ABSOLUTE AUTO 0.03 K/mm3 (0.00-0.23); BASOPHILS PERCENT AUTO 0 % (0-2); EOSINOPHILS ABSOLUTE AUTO 0.26 K/mm3 (0.00-0.68); EOSINOPHILS PERCENT AUTO 3 % (0-6); Hemoglobin 9.9 g/dL (13.5-17.5); IMMATURE GRAN ABSOLUTE AUTO 0.07 K/mm3 (0.00-0.10); IMMATURE GRAN PERCENT AUTO 1 % (0-1); LYMPHOCYTES ABSOLUTE AUTO 1.18 K/mm3 (0.84-5.20); LYMPHOCYTES PERCENT AUTO 15 % (21-46); MONOCYTES PERCENT AUTO 4 % (4-13); Mean Corpuscular HGB 33.1 pg (26.0-34.0); Mean Corpuscular HGB Conc 31.9 g/dL (31.5-36.5); Mean Corpuscular Volume 104 fL (80-100); Mean Platelet Volume 12.4 fL (9.1-12.4); NEUTROPHILS ABSOLUTE AUTO 5.83 K/mm3 (1.96-9.15); NEUTROPHILS PERCENT AUTO 76 % (41-73); Platelet Count 207 K/mm3 (150-400); RDW Coefficient Variation 14.5 % (11.7-14.2); RDW Standard Deviation 54.5 fL (35.1-46.3); Red Blood Cell Count 2.99 M/mm3 (4.30-5.90); White Blood Cell Count 7.67 K/mm3 (4.00-11.30)
[2018-10-25 05:23] LABS: Alanine Aminotransfer (ALT/SGP 82 U/L (12-78); Albumin, Blood 2.9 g/dL (3.4-5.0); Alk Phos 83 U/L (50-136); Anion Gap 6 mmol/L (6-16); Aspartate Aminotrans (AST/SGOT 27 U/L (12-37); Bilirubin, Total 0.5 mg/dL (0.1-1.0); Blood Urea Nitrogen 25 mg/dL (8-24); CO2, Blood 27 mmol/L (21-32); Calcium, Blood 8.5 mg/dL (8.5-10.1); Chloride, Blood 114 mmol/L (98-108); Creatinine, Blood 0.83 mg/dL (0.60-1.20); Glomerular Filtration Rate >60 (60-); Glucose, Blood 116 mg/dL (70-99); Phosphorus, Blood 2.5 mg/dL (2.5-4.9); Potassium, Blood 3.4 mmol/L (3.5-5.5); Sodium, Blood 147 mmol/L (136-145); Total Protein, Blood 5.9 g/dL (6.4-8.2)
--- NOTE | 2018-10-25 06:36 | NUR ---
SUMMARY PATIENT REMAINS INTUBATED AND SEDATED WITH PROPOFOL AT 30 MCG, PATIENT AWAKENS TO SLIGHT STIMULI. GENERALIZED WEAKNESS CONTINUES. ETT IN PLACE WITH VENT SETTINGS AC 16, TV 450, PEEP 5, FIO2 25% SUCTIONING FREQUENTLY CLEAR TO WHITE SPUTUM. PEG TUBE IN PLACE WITH PIVIT RUNNING AT GOAL RATE OF 45/HR SEE FLOW SHEET FOR RESIDUALS.
--- NOTE | 2018-10-25 07:53 | NUR ---
ASSUMED CARE REPORT FROM BRYAN Mcneil RN. PATIENT IS INTUBATED, LIGHTLY SEDATED ON PROPOFOL AT 30 MCG/KG/MIN. ETT 8.0 26 SACHI. A/C 16 Vt 450 PEEP 5.0 FIO2 25% BIOX 25%
--- NOTE | 2018-10-25 08:47 | NUR ---
LPN RN HOSPICE, TUSHAR PERFORMING AM ASSESSMENT
--- NOTE | 2018-10-25 11:14 | NUR ---
MD VISIT DR. RETANA AND DR. HUFF IN. ORDERS FROM DR HUFF
--- NOTE | 2018-10-25 11:25 | NUR ---
pt remains on vent with high oral secretions. review of advance directive with manager laboratory. Atropine and Scopolamine for secrections. Ethics consult to provide physician support for plan of care and pt AD and needs may need trach and peg tube. Will review with physician and [facility] for prognostication.
--- NOTE | 2018-10-25 12:22 | NUR ---
Called [facility] they reviewed his past admissions and payee information. Only records found were history he reported of having and ex and step children he was estranged from. [facility] their only interactgion with him was in [place] and no contact information. [facility] live [facility] phi [facility]. I contacted her. She reported he did loose his care when he was living in [place] and [facility] arr[facility] for [facility] to stay in her care. She did not have next of kin infor.
--- NOTE | 2018-10-25 13:31 | NUR ---
PATIENT PLACED IN CHAIR USING CEILING LIFT WITH HELP FROM PHYSICAL THERAPY, STUDENT NURSE, PALLIATIVE CARE NURSE. HEART RATE CLIMBED WITH ACTIVITY AND BREATHING WAS SHALLOW AND TACHYPNEAC. PROPOFOL TITRATED UP AND PRECEDEX GTT REQUESTED. PRN METOPROLOL IV ORDER FROM DR. HUFF. ASSISTED LEANNE RT RETAPE AND PLACE NEW BITE BLOCK. ATROPINE DROPS GIVEN FOR EXCESS SECRETIONS. RECTAL TUBE PLACED FOR LIQUID STOOL THAT CONTINUED WHEN PATIENT COUGH
--- NOTE | 2018-10-25 18:15 | NUR ---
Review of patients care and advance directive per Ethics consult. Conuslt in place for patient and pysician relationship support for a ptient who has no family support. Patient is 100% service connected . Review of records from [place] pt had similar past polst and current polst is and update. Pt polst and progress present with respectful and ethical and compasionate care in line with [facility] directives that he have the Tracheostomy placed and oportunity for rehab. Contacted [facility] care team and palliative care team for follow up supportive care for a service connected . Follow up care with PT/OT plan and care managers.
--- NOTE | 2018-10-25 18:18 | NUR ---
USING ATROPINE EYE DROPS TO REDUCE ORAL SECRETIONS. TITRATING PROPOFOL DOWN WHILE USING PRECEDEX FOR LIGHT SEDATION. HELD 1800 LOPRESSOR DOSE FOR SBP. PRECEDEX HAS SLOWED HR EXPECTED. CONTINUES IN THE CHAIR WITH ADJUSTMENTS TO POSTION WITH LIFT. HEELS FLOATED.
--- NOTE | 2018-10-25 21:00 | NUR ---
PATIENT TRANSFERRED TO BED FROM CHAIR USING OVER HEAD LIFT AND ASSISTANCE WITH 2ND NURSE AND RT. PATIENT REMAINS INTUBATED AND SEDATED WITH PROPOFOL AT 20 MCG, AND PRECEDEX AT 0.3 MCG. PATIENT NODDING YES AND NO TO QUESTIONS. WRIST RESTRAINTS REMAIN OFF PATIENT MOVING ARMS SLIGHTLY BUT NOT REACHING FOR ETT. PEG TUBE IN PLACE WITH TUBE FEEDING AT GOAL OF 45/HR. AFIB CONTINUES HR UP TO 150 WHEN PATIENT IN CHAIR PATIENT DENIES NEED FOR PAIN MED BUT WANTING TO GO BACK TO BED, HEART RATE DOWN TO 120'S WHEN BACK IN BED AND POSITIONED COMFORTABLY
[2018-10-26 03:55] LABS: BASOPHILS ABSOLUTE AUTO 0.03 K/mm3 (0.00-0.23); BASOPHILS PERCENT AUTO 0 % (0-2); EOSINOPHILS ABSOLUTE AUTO 0.11 K/mm3 (0.00-0.68); EOSINOPHILS PERCENT AUTO 2 % (0-6); Hematocrit 29.7 % (37.0-53.0); Hemoglobin 9.4 g/dL (13.5-17.5); IMMATURE GRAN ABSOLUTE AUTO 0.06 K/mm3 (0.00-0.10); IMMATURE GRAN PERCENT AUTO 1 % (0-1); LYMPHOCYTES ABSOLUTE AUTO 1.64 K/mm3 (0.84-5.20); LYMPHOCYTES PERCENT AUTO 22 % (21-46); MONOCYTES ABSOLUTE AUTO 0.31 K/mm3 (0.16-1.47); MONOCYTES PERCENT AUTO 4 % (4-13); Mean Corpuscular HGB 33.1 pg (26.0-34.0); Mean Corpuscular HGB Conc 31.6 g/dL (31.5-36.5); Mean Corpuscular Volume 105 fL (80-100); Mean Platelet Volume 12.2 fL (9.1-12.4); NEUTROPHILS ABSOLUTE AUTO 5.43 K/mm3 (1.96-9.15); NEUTROPHILS PERCENT AUTO 72 % (41-73); Platelet Count 203 K/mm3 (150-400); RDW Coefficient Variation 14.7 % (11.7-14.2); Red Blood Cell Count 2.84 M/mm3 (4.30-5.90); White Blood Cell Count 7.58 K/mm3 (4.00-11.30)
[2018-10-26 04:14] LABS: Anion Gap 6 mmol/L (6-16); Blood Urea Nitrogen 27 mg/dL (8-24); CO2, Blood 27 mmol/L (21-32); Calcium, Blood 8.5 mg/dL (8.5-10.1); Chloride, Blood 116 mmol/L (98-108); Creatinine, Blood 0.82 mg/dL (0.60-1.20); Glomerular Filtration Rate >60 (60-); Glucose, Blood 93 mg/dL (70-99); Potassium, Blood 3.8 mmol/L (3.5-5.5); Sodium, Blood 149 mmol/L (136-145)
--- NOTE | 2018-10-26 05:11 | NUR ---
SBT 0450 PLACED PT ON PS 10/5 FI02 25%, VT WOULD BRIEFLY DIP DOWN INTO THE 200'S AND THEN POP BACK UP INTO THE 300'S, RR 30-48, HR 120-148. HE ACTUALLY MAINTAINED HIS VT'S BETTER THAN WHAT HE DID THE LAST TIME I WEANED HIM ABOUT 12 DAYS AGO. PT VERY CALM AND COOPERATIVE
--- NOTE | 2018-10-26 05:15 | NUR ---
PROPOFOL OFF FOR WEAN, PRECEDEX CONTINUES AT 0.3MCG. PATIENT REMAINING CALM BUT RESP RATE 37 AND HEART RATE 130-140. PATIENT DENIES FEELING ANXIOUS.
--- NOTE | 2018-10-26 06:32 | NUR ---
SUMMARY PATIENT REMAINS INTUBATED AND SEDATED. VENT SET AT AC 16, TV 450, PEEP 5, FIO2 25% CONTINUES TO HAVE CLEAR TO WHITE SPUTUM SUCTIONED FREQUENTLY. PROPOFOL AT 30 MCG PRECEDEX AT 0.3 MCG DURING WEAN NOW OFF. TUBE FEEDING OFF DUE TO ELEVATED RESIDUALS. PATIENT WAKING UP EASILY FOLLOWING SIMPLE DIRECTIONS. VERY WEAK. WRIST RESTRAINTS REMAIN OFF T/O THE NIGHT.
--- NOTE | 2018-10-26 08:15 | NUR ---
INITIAL ASSESSMENT PATIENT RESTING IN BED QUIETLY. PATIENT ON LIGHT SEDATION. PATIENT OPENS EYES TO VOICE AND FOLLOWS SOME SIMPLE COMMANDS. PATIENT WEAK BUT ABLE TO SLIGHTLY MOVE ALL EXTREMITIES. PATIENT CALM, NEUTRAL. PATIENT AFEBRILE. PATIENT DENIES PAIN OR DISCOMFORT. PUPILS 7+, REACT SLUGGLISHLY TO LIGHT. PATIENT SATTING 90% AND GREATER ON VENT SETTINGS OF AC 16, TV 450, PEEP 5, 25% FIO2. LUNGS DIMINISHED THROUGHOUT. SMALL AMOUNT OF THIN, PALE YELLOW SPUTUM BEING SUCTIONED FROM ETT. COPIOUS WHITE ORAL SECRETIONS BEING SUCTIONED. PATIENT IN A. FIB, HR LOW 100S TO 120S. BP STABLE. RADIAL PULSES 2+ IN STRENGTH. LOWER PULSES 1+. ABDOMEN MODERATELY DISTENDED, FIRM, WITH NORMOACTIVE BS. PEG TUBE IN PLACE- TF ON HOLD FOR THIS TIME. RESIDUAL OF 200 MLS OBTAINED AND REINSTILLED. RECTAL TUBE IN PLACE, DRAINING SMALL AMOUNT OF BROWN, LIQUID STOOL. AMADOR DRAINING DARK YELLOW COLORED URINE. SCATTERED BRUISING NOTED T/O BODY. BUTTOCKS AND CURTIS AREA REDDENED. NECK/ CHEST REDDENED. EDEMA NOTED TO EXTREMITIES AND TO SCROTUM/ PENIS. NS INFUSING TKO, PROPOFOL AT 25 MCG/ KG/ MINUTE. BED LOW, CALL LIGHT IN REACH. WILL CONTINUE TO MONITOR PATIENT FREQUENTLY THROUGHOUT SHIFT.
--- NOTE | 2018-10-26 12:15 | NUR ---
PATIENT OOB TO CHAIR WITH CEILIING LIFT. PATIENT CONTINUES TO DENY PAIN OR DISCOMFORT. PATIENT AFEBRILE. PATIENT CONTINUES TO FOLLOW SOME SIMPLE COMMANDS AND NOD/ SHAKE HEAD TO ANSWER QUESTIONS. PATIENT ON SPONTANEOUS PRESSURE SUPPORT 14/5, 25% FIO2. MODERATE AMOUNT OF THICK, COKER SPUTUM NOW BEING SUCTIONED FROM ETT. COPIOUS AMOUNT OF WHITE ORAL SECRETIONS ALSO BEING SUCTIONED. PATIENT REMAINS IN A. FIB. HR 1-TEENS TO 130S. BP STABLE. PATIENT RECEIVED SCHEDULED DOSE OF METOPROLOL. TF RESIDUAL OF 20 MLS OBTAINED AND REINSTILLED. TF REMAINS INFUSING AT 25 MLS/ HOUR WITH 150 ML FREE WATER FLUSH Q4H. NS TKO, PROPOFOL INFUSING AT 30 MCG/ KG/ MINUTE. NO OTHER ACUTE CHANGES TO NOTE ON AT THIS TIME. WILL CONTINUE TO MONITOR.
--- NOTE | 2018-10-26 16:27 | NUR ---
SPOKE TO DR. HUFF ABOUT PATIENT'S HR INCREASING UP TO 149. ORDER TO GIVE SCHEDULED 1800 METOPROLOL NOW RECEIVED.
--- NOTE | 2018-10-26 16:37 | NUR ---
PATIENT BACK IN BED. PATIENT HAS TEMP OF 99.0 DEGREES FAHRENHEIT. COMFORTER BLANKET REMOVED. PATIENT DENIES PAIN AT THIS TIME. PATIENT SATTING WELL ON AC 16, TV 450, PEEP 5, FIO2 25%. PATIENT IN A.FIB, HR 1-TEENS TO 149. BP STABLE. DR. HUFF INFORMED AND 1800 DOSE OF METOPROLOL GIVEN EARLY PER HER INSTRUCTION. RESIDUAL OF ZERO FROM TF. NO OTHER ACUTE CHANGES TO NOTE ON AT THIS TIME. WILL CONTINUE TO MONITOR.
--- NOTE | 2018-10-26 18:55 | NUR ---
SHIFT SUMMARY PATIENT REMAINED INTUBATED AND ON SEDATION T/O SHIFT. PATIENT REMAINED FOLLOWING SIMPLE COMMANDS, NODDING AND SHAKING HEAD TO ANSWER QUESTIONS. PATIENT HAD TMAX OF 99.3 DEGREES FAHRENHEIT. PATIENT COMPLAINED OF PAIN OT- PRN FENTANYL RELIEVED PAIN. PATIENT ON AC 16, TV 450, PEEP 5, 25% FIO2 AT BEGINNING AND END OF SHIFT. PATIENT ON SPONTANEOUS PS 14/5, 25% FIO2 FOR SEVERAL HOURS DURING DAY. PATIENT ENDED UP GETTING TIRED, LOW TIDAL VOLUMES AND HIGH RR, SO PLACED BACK ON AC SETTINGS. PATIENT LUNGS REMAINED DIMINISHED THROUGHOUT. PATIENT CONTINUED TO HAVE MODERATE AMOUNT OF THICK, COKER SPUTUM FROM ETT AND COPIOUS AMOUNT OF WHITE ORAL SECRETIONS. PATIENT REMAINED IN A. FIB, HR LOW 100S TO 149. 1800 DOSE OF METOPOLOL GIVEN EARLY PER DR. HUFF FOR INCREASED HR. BP REMAINED STABLE. SCDS IN PLACE. ABDOMEN REMAINED MODERATELY DISTENDED, FIRM, WITH NORMOACTIVE BS. PATIENT HAD HIGH RESIDUALS AT BEGINNING OF SHIFT. REGLAN STARTED FOR GUT MOTILITY. AFTER BREAK FROM TF AND STARTING SCHEDULED IV REGLAN, RESIDUALS DECREASED AND TF WAS ABLE TO BE RESTARTED. PIVOT 1.5 CURRENTLY INFUSING INTO PEG TUBE AT 35 MLS/ HOUR WITH 150 WATER FLUSH Q4H. OKAY TO INCREASE TF TO GOAL RATE OF 45 MLS/ HOUR AT 0200 IF RESIDUALS REMAIN WNL. 50 ML OUT FROM RECTAL TUBE. RECTAL TUBE FELL OUT AT VERY END OF SHIFT AND WAS NOT REPLACED SINCE MINIMAL OUTPUT T/O DAY. AMADOR REMAINS DRAINING DARK YELLOW URINE. NO CHANGE IN SKIN. PROPOFOL INFUSING AT 30 MCG/ KG/ MINUTE, NS TKO. PATIENT OOB TO CHAIR WITH LIFT TODAY. BED LOW, CALL LIGHT IN REACH. WILL GIVE REPORT TO ONCOMING SMALL OFFSET PRINTER NURSE SHORTLY.
--- NOTE | 2018-10-26 19:30 | NUR ---
PT INTUBATED AND SEDATED WITH PROPOFOL. OPENS EYE'S WHEN ENTERING THE ROOM. ABLE TO SHAKE HEAD YES OR NO TO SIMPLE QUESTIONS. WEAK T/O AND CAN BARELY MOLDED GOODS INSPECTOR TRIMMER HANDS ON COMMAND. HAS TF TO PEG TUBE. LESS THAN 10ML RESIDUAL REFED. SEE ASSESSMENT.
[2018-10-27 04:58] LABS: International Normalized Ratio 1.03; Prothrombin Time Results 10.9 Sec (9.7-11.5)
[2018-10-27 05:03] LABS: Anion Gap 7 mmol/L (6-16); Blood Urea Nitrogen 25 mg/dL (8-24); Bun/Creatinine Ratio 33.7 (12.0-20.0); CO2, Blood 27 mmol/L (21-32); Calcium, Blood 8.3 mg/dL (8.5-10.1); Chloride, Blood 112 mmol/L (98-108); Creatinine, Blood 0.74 mg/dL (0.60-1.20); Glomerular Filtration Rate >60 (60-); Glucose, Blood 115 mg/dL (70-99); Magnesium, Blood 2.2 mg/dL (1.6-2.4); Phosphorus, Blood 2.7 mg/dL (2.5-4.9); Potassium, Blood 3.2 mmol/L (3.5-5.5); Sodium, Blood 146 mmol/L (136-145)
--- NOTE | 2018-10-27 06:33 | NUR ---
SUMMARY PT INTUBATED AND SEDATED WITH PROPOFOL. PT OPENS EYE'S AND IS ABLE TO NOD YES OR NO TO QUESTIONS WHEN AWAKE. NO CHANGES IN CONDITION OVER NIGHT. TURNED TF OFF THIS AM FOR TRACH PROCEDURE THAT WILL TAKE PLACE TODAY. NO SIGN OF DISTRESS THIS AM.
[2018-10-27 06:50] LABS: BASOPHILS ABSOLUTE AUTO 0.02 K/mm3 (0.00-0.23); BASOPHILS PERCENT AUTO 0 % (0-2); EOSINOPHILS ABSOLUTE AUTO 0.32 K/mm3 (0.00-0.68); EOSINOPHILS PERCENT AUTO 4 % (0-6); Hematocrit 28.4 % (37.0-53.0); IMMATURE GRAN ABSOLUTE AUTO 0.06 K/mm3 (0.00-0.10); IMMATURE GRAN PERCENT AUTO 1 % (0-1); LYMPHOCYTES ABSOLUTE AUTO 1.49 K/mm3 (0.84-5.20); LYMPHOCYTES PERCENT AUTO 17 % (21-46); MONOCYTES ABSOLUTE AUTO 0.34 K/mm3 (0.16-1.47); MONOCYTES PERCENT AUTO 4 % (4-13); Mean Corpuscular HGB 32.5 pg (26.0-34.0); Mean Corpuscular HGB Conc 31.7 g/dL (31.5-36.5); Mean Corpuscular Volume 103 fL (80-100); Mean Platelet Volume 12.1 fL (9.1-12.4); NEUTROPHILS ABSOLUTE AUTO 6.35 K/mm3 (1.96-9.15); NEUTROPHILS PERCENT AUTO 74 % (41-73); Platelet Count 200 K/mm3 (150-400); RDW Coefficient Variation 14.9 % (11.7-14.2); RDW Standard Deviation 55.7 fL (35.1-46.3); Red Blood Cell Count 2.77 M/mm3 (4.30-5.90); White Blood Cell Count 8.58 K/mm3 (4.00-11.30)
--- NOTE | 2018-10-27 07:44 | NUR ---
INITIAL ASSESSMENT PATIENT RESTING QUIETLY IN BED UPON ENTERING ROOM. PATIENT INTUBATED AND ON SEDATION. PATIENT CALM, NEUTRAL. PATIENT OPENS EYES TO VERBAL STIMULI. PATIENT VERY WEAK BUT ABLE TO MOVE HANDS AND TOES TO COMMAND. PATIENT SHAKES AND NODS HEAD TO ANSWER QUESTIONS. PUPILS 7+, REACT SLUGGISHLY TO LIGHT. PATIENT DENIES PAIN AT THIS TIME. PATIENT AFEBRILE. PATIENT ON VENT SETTINGS OF AC 16, TV 450, PEEP 5, 25% FIO2. LUNGS CLEAR IN UPPER LOBES AND DIMINISHED IN LOWER LOBES. SCANT AMOUNT OF THICK, WHITE SECRETIONS BEING SUCTIONED FROM ETT. ORAL SECRETIONS MUCH LESS TODAY THAN YESTERDAY, THUS FAR. PATIENT IN A. FIB, HR 90S TO LOW 100S. BP STABLE. SCDS IN PLACE. ABDOMEN MODERATELY DISTENDED, SOFT, WITH HYPERACTIVE BS. PEG TUBE IN PLACE. TF ON HOLD FOR TRACH PROCEDURE TODAY. RESIDUAL OF ZERO THIS AM. AMADOR DRAINING DARK YELLOW URINE. BUTTOCKS/ CURTIS AREA REDDENED. SCATTTERED BRUISES NOTED. EDEMA TO EXTREMITIES AND SCROTUM/ PENIS. CHEST AND NECK REDDENED. PROPOFOL INFUSING AT 30 MCG/ KG/ MINUTE, NS TKO. BED LOW, CALL LIGHT IN REACH. WILL CONTINUE TO MONITOR PATIENT FREQUENTLY THROUGHOUT SHIFT.
--- NOTE | 2018-10-27 12:00 | NUR ---
DR. HUFF IN TO SEE PATIENT. PATIENT TRANSFERRED BACK TO BED WITH CEILING LIFT. NO CHANGE IN NEURO STATUS. PROPOFOL TURNED DOWN TO 15 MCG/ KG/ MINUTE FOR SHORT TIME WHILE PATIENT WORKING WITH PHYSICAL THERAPY. PROPOFOL NOW BACK UP TO 30 MCG/ KG/ MINUTE. PATIENT AFEBRILE. PATIENT DENIES PAIN AND DISCOMFORT AT THIS TIME. PATIENT REMAINS SATTING OVER 90% ON SAME VENT SETTINGS. MODERATE AMOUNT OF FROTHY, PALE YELLOW SPUTUM NOW BEING SUCTIONED FROM THE ETT. MODERATE AMOUNT OF WHITE/ YELLOW ORAL SECRETIONS BEING SUCTIONED. PATIENT GIVEN OT DOSE OF [address] MG [address] HUFF. TF REMAINS ON HOLD FOR PROCEDURE LATER TODAY. RESIDUAL OF ZERO. TYMPANIC BS NOTED. PATIENT HAD MEDIUM BM- SOFT AND YELLOW IN COLOR. NO OTHER ACUTE CHANGES TO NOTE ON AT THIS TIME. WILL CONTINUE TO MONITOR.
--- NOTE | 2018-10-27 16:04 | NUR ---
PATIENT RESTING QUIETLY IN BED. PATIENT AFEBRILE. PATIENT DENIES PAIN OR DISCOMFORT AT THIS TIME. PATIENT REMAINS SATTING WELL ON SAME VENT SETTINGS. NO SPUTUM SUCTIONED THROUGH ETT. LARGE AMOUNT OF YELLOW/ WHITE ORAL SECRETIONS SUCTIONED. PATIENT REMAINS IN A.FIB, HR LOW 100S TO 120S. BP STABLE. TF REMAINS ON HOLD. RESIDUAL OF ZERO. AMADOR DRAINING GOOD AMOUNT OF YELLOW COLORED URINE. NO OTHER ACUTE CHANGES TO NOTE ON AT THIS TIME. WILL CONTINUE TO MONITOR.
--- NOTE | 2018-10-27 17:04 | NUR ---
INTO ICU 12 TO PRE PROCEDURE PATIENT. PATIENT VENTED AND ON PORPOFOL GTT.
--- NOTE | 2018-10-27 17:38 | NUR ---
10/27/18 1738 Jcae Blackmon 3-LEAD EKG REVIEWED WITH PHYSICIAN PRIOR TO START OF PROCEDURE. History, Chart, Medications and Allergies reviewed before start of procedure.MONITOR INTACT WITH CONTINUOUS PULSE OXIMETRY AND INTERMITTENT BP.O2 VIA N/C INTACT THROUGHOUT SEDATION/PROCEDURE. PATIENT ON PROPOFOL GTT. ADDITIONAL MEDS ON HAND IF NEEDED PER DR ELLIS.
--- NOTE | 2018-10-27 17:53 | NUR ---
200 ML NS BOLUS STARTED FOR SBP OF 68. WILL CONTINUE TO MONITOR.
--- NOTE | 2018-10-27 19:13 | NUR ---
brief visit pt recieved trach placement will follow for comfort.
--- NOTE | 2018-10-27 19:15 | NUR ---
ASSUMED CARE RECEIVED REPORT FROM NAOMIE. PT IS RESTING S/P PERC. TRACH PROCEDURE TODAY; TRACH SITE IS CDI, NO DRAINAGE NOTED. HE IS ON VENT AC16/450/5/25% SAT'ING 92%. CURRENTLY GTTPS: PROPOFOL 15MCG/KG/MIN, LEVOPHED 2MCG/MIN AND NS TKO. PT RECEIVING PIVOT 1.5 TUBE FEEDING CONTINUOUSLY AT 25ML/HR THROUGH PEG TUBE. PT HAS SCD'S ON BILATERAL CALVES. AMADOR HANGING TO GRAVITY ON BED. NO FAMILY AT BEDSIDE.
--- NOTE | 2018-10-27 19:17 | NUR ---
SHIFT SUMMARY PATIENT REMAINED LIGHTLY SEDATED THROUGHOUT DAY. PATIENT CONTINUED TO FOLLOW SIMPLE COMMANDS, ALTHOUGH WEAK. PATIENT IS CURRENTLY SEDATED AFTER TRACH PROCEDURE. DR. ROLON PLACED 8.0 PERCUTANEOUS TRACH. PATIENT BECAME HYPOTENSIVE DURING PROCEDURE. PATIENT GIVEN 200 ML NS BOLUS. PROPOFOL DECREASED TO 15 MCG/ KG/ MINUTE AND LEVOPHED STARTED. LEVOPHED CURRENTLY INFUSING AT 2 MCG/ MINUTE. PATIENT DID NOT HAVE ANY COMPLAINTS OF PAIN T/O SHIFT. PATIENT REMAINED AFEBRILE. PATIENT LUNGS REMAINED CLEAR IN UPPER LOBES AND DIMINISHED IN LOWER LOBES. PATIENT REMAINS ON AC 16, TV 450, PEEP 5, FIO2 25%. PATIENT HAS REMAINED IN A. FIB, HR 90S TO 120S. BP REMAINED STABLE EXCEPT DURING AND AFTER TRACH PROCEDURE. TF ON HOLD ALL DAY, JUST RESTARTED AT 25 MLS/ HOUR WITH 150 ML FREE WATER FLUSH Q4H. PATIENT HAD MEDIUM, SOFT, YELLOW BM THIS SHIFT. AMADOR DRAINED ADEQUATE AMOUNT OF YELLOW COLORED URINE. PATIENT RECEIVED OT 40 MG IV LASIX THIS SHIFT. NO CHANGE TO SKIN. PATIENT OOB TO CHAIR WITH LIFT DURING DAY. PHYSICAL THERAPY WORKED WITH PT TODAY. BED LOW, CALL LIGHT IN REACH. REPORT GIVEN TO ASSUMING PLASTIC FIXTURE BUILDER RNS.
--- NOTE | 2018-10-27 21:14 | NUR ---
UPDATE PT AWAKE, ON LIGHT SEDATION; OPENING EYES TO VOICE, FOLLOWS COMMANDS, WEAK EQUAL ECONOMICS TEACHER, WIGGLES LEFT TOES, BUT NOT ON THE RIGHT. REPORTS NO PAIN. PUPILS REACTIVE TO LIGHT. REPORTS NO NUMBNESS/TINGLING.
--- NOTE | 2018-10-27 23:03 | NUR ---
UPDATE DURING BED BATH; PT HAD COPIOUS THICK, OCKER/CLEAR-BLOOD TINGED SECRETIONS FROM TRACHEA. ALSO HAD COPIOUS COKER/CLEAR, THICK SECRETIONS FROM ORAL CAVITY. PT HAD LIQUIDY LARGE BOWEL MOVEMENT, BROWN/YELLOW. PT REPORTS NO PAIN. PT ABLE TO WIGGLE BOTH TOES (CHANGE FROM EARLIER). FOLLOWING COMMANDS, NODDING TO QUESTIONS.
--- NOTE | 2018-10-28 01:19 | NUR ---
UDPATE NO MAJOR CHANGES. RESIDUALS ARE MINIMAL (20ML; FORMULA, GREEN-GUSTAVO). PT HAS BEEN RESTING. THE SCHEDULED DOSE OF LOPRESSOR WAS GIVEN PER TUBE AROUND 1115 - NO CHANGE IN HEART RATE, PRN DOSE OF LOPRESSOR GIVEN IV AROUND 0015 - HEART RATE REMAINS MILDLY EVELATED, BUT IS NOT REACHING THE 120'S ANYMORE. WILL CONTINUE TO MONITOR.
[2018-10-28 03:54] LABS: BASOPHILS ABSOLUTE AUTO 0.02 K/mm3 (0.00-0.23); BASOPHILS PERCENT AUTO 0 % (0-2); EOSINOPHILS ABSOLUTE AUTO 0.34 K/mm3 (0.00-0.68); EOSINOPHILS PERCENT AUTO 4 % (0-6); Hematocrit 28.8 % (37.0-53.0); Hemoglobin 9.4 g/dL (13.5-17.5); IMMATURE GRAN ABSOLUTE AUTO 0.05 K/mm3 (0.00-0.10); IMMATURE GRAN PERCENT AUTO 1 % (0-1); LYMPHOCYTES ABSOLUTE AUTO 1.33 K/mm3 (0.84-5.20); LYMPHOCYTES PERCENT AUTO 17 % (21-46); MONOCYTES ABSOLUTE AUTO 0.36 K/mm3 (0.16-1.47); MONOCYTES PERCENT AUTO 5 % (4-13); Mean Corpuscular HGB 33.2 pg (26.0-34.0); Mean Corpuscular HGB Conc 32.6 g/dL (31.5-36.5); Mean Corpuscular Volume 102 fL (80-100); Mean Platelet Volume 11.9 fL (9.1-12.4); NEUTROPHILS ABSOLUTE AUTO 5.83 K/mm3 (1.96-9.15); NEUTROPHILS PERCENT AUTO 74 % (41-73); Platelet Count 207 K/mm3 (150-400); RDW Coefficient Variation 14.6 % (11.7-14.2); Red Blood Cell Count 2.83 M/mm3 (4.30-5.90); White Blood Cell Count 7.93 K/mm3 (4.00-11.30)
[2018-10-28 04:11] LABS: Anion Gap 6 mmol/L (6-16); Blood Urea Nitrogen 22 mg/dL (8-24); Bun/Creatinine Ratio 30.7 (12.0-20.0); CO2, Blood 29 mmol/L (21-32); Calcium, Blood 8.4 mg/dL (8.5-10.1); Chloride, Blood 110 mmol/L (98-108); Creatinine, Blood 0.72 mg/dL (0.60-1.20); Glomerular Filtration Rate >60 (60-); Glucose, Blood 99 mg/dL (70-99); Sodium, Blood 145 mmol/L (136-145)
--- NOTE | 2018-10-28 04:58 | NUR ---
SBT/UPDATE MORNING LABS BACK; POTASSIUM = 3.0, CALERO AWARE, KCL 40MEQ ORDERED, BAG 1 OF 2 INFUSING NOW. 0400 RESIDUALS < 10ML; TUBE FEED WAS INCREASED BY 20; INFUSING AT 45ML/HR CURRENTLY. PT JUST HAD SBT FOR LESS THAN 10 MINUTES; COULD NOT CONTROL HIS RATE (SEE RT NOTE). SEDATION WAS ON STANDBY 20 MINUTES PRIOR - BACK ON AT 15MCG/KG/MIN CURRENTLY. NO PRECEDEX REQUIRED BECAUSE VITALS WERE STABLE, ASIDE MILD INCREASE IN HR, WHICH HAS BEEN ELEVATED ALL NIGHT. GAVE PT 25MCG OF FENTANYL EARLIER WITH NO DROP IN HR. PT IS AFEBRILE, AND SHOWING NOW SIGNS OF PAIN OR ANXIETY. CNVI = 0. PT REMAINS IN AFIB.
--- NOTE | 2018-10-28 06:10 | NUR ---
SHIFT SUMMARY PT IS S/P PERC. TRACH (10/27 EVENING), WITH A 8.0 NONFEN. SHILEY. PT IS ON VENT AC16/450/5/25%. SAT'ING 90-95. TRACH SITE IS CDI; SLIGHT BLOODY OOZE DURING BED BATH. CURRENT GTTPS: PRECEDEX 0.7MCG/KG/HR, NS TKO (KCL CURRENTLY PB), AND PROPOFOL IS NOW ON STANDBY (15-30MCG/KG/MIN THROUGHOUT NIGHT). PT OPENS EYES TO NOISE, AND NOXIOUS STIMULI; CAN FOLLOW COMMANDS, AND NODS SLIGHTLY. HE REPORTED NO PAIN OVERNIGHT, AND GOT TO SLEEP FOR MAJORITY OF NIGHT. PT HAD SBT THAT LASTED ONLY 5 MINUTES (SEE RT REPORT). AFEBRILE. HE HAS BEEN IN AFIB WITH A RATE BETWEEN 97-140; MAINLY 110-130; NOT PHARMACOLOGICALLY RESPONSIVE. LAST INTERVENTION WAS SWITCHING PRIMARY SEDATION TO PRECEDEX AND DECREASING PROPOFOL; TO SEE IF THAT WOULD HELP HR (SEE PREVIOUS NOTES REGARDING HEART RATE). PT HAS BEEN HAVING COPIOUS ORAL AND TRACHEAL SECRETIONS THAT ARE COKER, THICK, AND BLOODY. TUBE FEEDING WAS RESTARTED AFTER PERC TRACH, AND OF 299 IS AT GOAL RATE OF 45ML/HR (PIVOT 1.5); RESIDUALS HAVE BEEN BARE MINIMUM ALL NIGHT. NO FAMILY AT BESIDE, BED LOW AND LOCKED & CALL LIGHT WITHIN REACH.
--- NOTE | 2018-10-28 11:03 | NUR ---
0730: CARE ASSUMED, ASSESSMENT COMPLETED. TRACH DRESSING CDI, VENT SETTINGS AC 16, Vt 400, FIO2 25%, PEEP5. PRECEDEX 0.7MCG/KG/HR, POTASSIUM INFUSING PER ORDERS, TF AT GOAL RATE, DRESSING TO PEG TUBE CDI, NO S/SX INFECTION NOTED AT EITHER PEG TUBE OR TRACH TUBE INSERTION SITES. PT AWAKE AND ALERT, DENIES PAIN AT THIS TIME. HR 110'S AFIB, OTHER VSS. 0900: PT RESTING IN BED WITH EYES CLOSED, ROUSES EASILY TO VOICE, VS REMAIN STABLE. NO CHANGES AT THIS TIME. 1040: PRECEDEX OFF AT THIS TIME FOR SEDATION VACATION AND THERAPY. PT MOVED INTO RECLINER CHAIR VIA CEILING LIFT, TOLERATED WELL. DR. HUFF IN TO SEE PT, ATTEMPTED TO CHANGE VENT SETTINGS TO SPONTANEOUS, PT HAD Vt >300, SPO2 >90%, BUT HIS RR WAS 35-40. PT PLACED BACK ON AC WITH PREVIOUS SETTINGS BY DR. HUFF. P.T. IN ROOM FOR THERAPY, PRECEDEX REMAINS OFF. 1105: THERAPY COMPLETED, PT REMAINS UP IN CHAIR, VSS, HR 90'S AFIB. PRECEDEX RESUMED AT 0.7MCG/KG/HR FOR COMFORT. TRACH AND ORAL SUCTIONING PROVIDED, PT DENIES OTHER NEEDS, IS WATCHING TV.
--- NOTE | 2018-10-28 12:36 | NUR ---
PT CONSISTENTLY HYPOTENSIVE AT THIS TIME, MAP 65, HR 90'S. PRECEDEX RATE DECREASED WITH NO CHANGE IN BP. PRECEDEX OFF AT THIS TIME, METOPROLOL HELD. PT DENIES C/O, IS RESTING IN RECLINER WATCHING TV AND SLEEPING ON AND OFF. OTHER VSS, VENT SETTINGS UNCHANGED.
--- NOTE | 2018-10-28 13:21 | NUR ---
PT AWAKE, ALERT AND ORIENTED, REPORTS HE FEELS LIKE HE IS CHOKING. TRACH AND ORAL SUCTIONING COMPLETED, MAP 78, PRECEDEX RESUMED AT 0.2MCG/KG/HR, WILL CONTINUE TO MONITOR BP'S CLOSELY. PT DENIES OTHER C/O OR NEEDS, REMAINS UP IN CHAIR, POSITIONINED WITH PILLOWS TO REDUCE PRESSURE ON BUTTOCKS.
--- NOTE | 2018-10-28 14:17 | NUR ---
Supporitve conversation with patient. He nodded he maybe would want to call his grandaughter. Gave him the choice to let me know when . He may not know her number but if he gives me a name we will try. Priased hism for being a though person and surviving the last few weeks of being sick . He smiled. Goal is rehab.
--- NOTE | 2018-10-28 14:45 | NUR ---
PT BACK TO BED USING CEILING LIFT, SMALL SOFT BM, UNDERPAD CHANGED, CALMOSEPTINE APPLIED. PT COUGHING FREQUENTLY, REQUIRING FREQUENT TRACH SUCTIONING, SECRETIONS ARE COKER, NO BLOOD NOTED IN SECRETIONS AT THIS TIME. BP STABLE, MAP 70'S, PRECEDEX INCREASED TO 0.4MCG/KG/HR. PT RESTING IN BED, DENIES PAIN.
--- NOTE | 2018-10-28 15:16 | NUR ---
JEVITY 1.5 INFUSING AT GOAL RATE OF 60ML PER ORDERS.
--- NOTE | 2018-10-28 18:16 | NUR ---
1700: PT AWAKE, WATCHING TV, BP IMPROVING, NO CHANGE IN PRECEDEX AT THIS TIME. 1815: BP 135/83, MAP 100, HR 110'S - 130, METOPROLOL ADMINISTERED PER ORDERS. PRECEDEX INCREASED TO 0.7MCG/KG/HR FOR COMFORT. PT AWAKE AND WATCHING TV, USING COMMUNICATION BOARD TO REPORT FEELING LIKE HE IS CHOKING. TEMP 100.0, BLANKET REMOVED, FAN ON. TRACH AND MOUTH SUCTIONED, PT REPOSITIONED.
--- NOTE | 2018-10-28 19:01 | NUR ---
REPORT TO MARIELA RAMIREZ NURSE.
--- NOTE | 2018-10-28 19:41 | NUR ---
ASSUMING CARE RECEIVED PT REPROT FROM SARWAT GALDAMEZ. PT IS ALERT, PT ATTEMPTS TO COMMUNICATE BY MOUTHING WORDS BUT IS VERY DIFFICULT TO UNDERSTAND. PT IS REECIVING PRECEDEX FOR SEDATION AND COMFORT AT 0.7MCG/KG/HR. PT IS VENTED VIA TRACH AT AC 16, TV 450, FIO2 25% AND PEEP 5. PT SPO2 IS MAINTAINING IN THE 90'S AT THIS TIME. PT HAS SOME COARSNESS IN THE MID TO LOWER LOBES, THAT IS CLEARED WITH SUCTIONING. PT TRACH SITE APPEARS TO BE CDI AT THIS TIME. PT IS IN A-FIB AT THIS TIME, WITH A RATE IN THE 100-120 RANGE. BP IS MAINTAINING IN TE 100-120'S SYSTOLIC AT THIS TIME. PT HAS AMADOR TEMP PROBE IN -LACE WITH A TEMPERATURE OF APPROX 100.4 AT THE TIME OF SHIFT REPORT, SHORTLY AFTER INITIALL ASSESSMENT TEMPERATURE OBSERVED TO BE 100.2. BLANKETS REMOVED AND FAN IN PLACE AT THIS TIME. PT IS RECEIVING NS AT TKO. ASSUMED CARE OF PT AT THE TIME OF SHIFT REPORT. WILL CONTINUE TO MONITOR PT.
[2018-10-29 03:36] LABS: BASOPHILS ABSOLUTE AUTO 0.02 K/mm3 (0.00-0.23); BASOPHILS PERCENT AUTO 0 % (0-2); EOSINOPHILS PERCENT AUTO 2 % (0-6); Hematocrit 29.5 % (37.0-53.0); Hemoglobin 9.7 g/dL (13.5-17.5); IMMATURE GRAN ABSOLUTE AUTO 0.07 K/mm3 (0.00-0.10); IMMATURE GRAN PERCENT AUTO 1 % (0-1); LYMPHOCYTES ABSOLUTE AUTO 1.28 K/mm3 (0.84-5.20); LYMPHOCYTES PERCENT AUTO 13 % (21-46); MONOCYTES PERCENT AUTO 5 % (4-13); Mean Corpuscular HGB 33.7 pg (26.0-34.0); Mean Corpuscular HGB Conc 32.9 g/dL (31.5-36.5); Mean Corpuscular Volume 102 fL (80-100); Mean Platelet Volume 11.7 fL (9.1-12.4); NEUTROPHILS ABSOLUTE AUTO 7.74 K/mm3 (1.96-9.15); NEUTROPHILS PERCENT AUTO 79 % (41-73); Platelet Count 212 K/mm3 (150-400); RDW Coefficient Variation 14.3 % (11.7-14.2); RDW Standard Deviation 53.3 fL (35.1-46.3); Red Blood Cell Count 2.88 M/mm3 (4.30-5.90); White Blood Cell Count 9.81 K/mm3 (4.00-11.30)
[2018-10-29 03:50] LABS: Anion Gap 8 mmol/L (6-16); Blood Urea Nitrogen 22 mg/dL (8-24); Bun/Creatinine Ratio 29.9 (12.0-20.0); CO2, Blood 27 mmol/L (21-32); Calcium, Blood 8.4 mg/dL (8.5-10.1); Chloride, Blood 110 mmol/L (98-108); Creatinine, Blood 0.74 mg/dL (0.60-1.20); Glomerular Filtration Rate >60 (60-); Glucose, Blood 131 mg/dL (70-99); Potassium, Blood 3.2 mmol/L (3.5-5.5); Sodium, Blood 145 mmol/L (136-145)
--- NOTE | 2018-10-29 05:46 | NUR ---
SHIFT SUMAMRY NOTE PT HAS REMAINED ALERT THROUGHOUT THE NIGHT. PT REMAINS VERY DIFFICULT TO UNDERSTAND WHEN HE ATTEMPTS TO COMMUNICATE, BUT IS FOLLOWING COMMANDS APPROPRIATELY PT CONTINUES TO RECEIVE PRECEDEX, RATE DECREASED TO 0.4MCG/KG/HR. PT CONTINUES TO RECEIVE NS AT TKO. PT REMAINS VENTED VIA TRACH AT AC 16, TV 450, FIO2 25%, AND PEEP 5. PT VENT SETTINGS HAVE REMAINED UNCHANGED OVERNIGHT. PT HAS REMAINED IN A-FIB WITH A RATE FROM 100-120'S OVERNIGHT. PT HAD APPROX 450ML OF SARAH URINE OUTPUT OVER NIGHT. NO ACUTE CHANGES NOTED OVERNIGHT.
--- NOTE | 2018-10-29 08:24 | NUR ---
0715: CARE ASSUMED, ASSESSMENT COMPLETED. PT ROUSES EASILY TO VOICE, ALERT AND ORIENTED, FOLLOWS SIMPLE COMMANDS. HR 90'S AFIB WHILE SLEEPING, 110'S WHEN AWAKE, PT DENIES CHEST PAIN. LS CTA, SECRETIONS INCREASE WHEN AWAKE, MODERATE VOLUMES SUCTIONED. VENT SETTINGS AC 16, Vt 450, FIO2 25%, PEEP 5. PRECEDEX INFUSING AT 0.4MCG/KG/HR, PT DENIES DISCOMFORT. 0800: PT HAD LARGE BM, ATTENDS CHANGED. PT UP TO CHAIR AT THIS TIME, IS NOW WATCHING TV, DENIES NEEDS OR C/O. PT SMILING AND LAUGHING THIS MORNING, SEEMS TO BE IN GOOD SPIRITS. ABDOMEN REMAINS DISTENDED, PT DENIES ABDOMINAL PAIN THIS MORNING.
--- NOTE | 2018-10-29 09:46 | NUR ---
PT SITTING UP IN CHAIR RESTING AND WATCHING TV, IS APPROPRIATE AND PLEASANT. HR 130'S-160'S AFIB, BP 136/86. NOON METOPROLOL ADMINISTERED AT THIS TIME FOR TACHYCARDIA.
--- NOTE | 2018-10-29 10:35 | NUR ---
INNER CANNULA CHANGED AT THIS TIME, PT TOLERATED PROCEDURE WELL. BP AND HR IMPROVING.
--- NOTE | 2018-10-29 10:59 | NUR ---
DR. HENAOTRATE IN TO SEE PT, NEW ORDERS RECEIVED. PT REMAINS IN CHAIR, HR 120'S, VENT SETTINGS AND PRECEDEX INFUSION UNCHANGED.
--- NOTE | 2018-10-29 12:36 | NUR ---
PT REMAINS UP IN CHAIR, DENIES NEEDS OR C/O. TRACH SECRETIONS DECREASING, PT REQUIRING LESS FREQUENT SUCTIONING. HR 130'S, OTHER VSS.
--- NOTE | 2018-10-29 14:17 | NUR ---
DR. ELLIS AT BEDSIDE TO ASSESS.
--- NOTE | 2018-10-29 15:31 | NUR ---
NS DC'D AT THIS TIME PER DOCTOR RHONDA. PT WATCHING TV, DENIES C/O, REQUIRING LESS FREQUENT SUCTIONING, SECRETIONS ARE DECREASING. PT BACK TO BED, POSITIONED FOR COMFORT.
--- NOTE | 2018-10-29 16:01 | NUR ---
PT ANXIOUS AFTER TRANSFERRING FROM CHAIR TO BED, REPORTS SOB. SPO2 LOW 90'S, BP 180/106, HR 140'S. PRECEDEX INCREASED TO 0.7MCG/KG/HR, RT AT BEDSIDE. LS DIMINISHED AND TIGHT. VENT SETTINGS ADJUSTED BY RT.
--- NOTE | 2018-10-29 16:08 | NUR ---
PT NODS YES WHEN ASKED IF HAVING DIFFICULTY BREATHING, DESPITE TRACH SUCTIONING. RR 40;S, SPO2 91%, FENTANYL ADMINISTERED. VENT SETTINGS AC 16, Vt 450, FIO2 25%, PEEP 5.
--- NOTE | 2018-10-29 16:31 | NUR ---
PT'S RR 20'S, SPO2 93%, PT RECEIVED NEB TX. HR 170'S, BP 147/84. METOPROLOL 5MG IVP ADMINISTERED PER ORDERS. HR DECREASED TO 140'S. LS CTA WITH BETTER AIR MOVEMENT AFTER NEB TREATMENT. WILL CONTINUE TO MONITOR.
--- NOTE | 2018-10-29 16:59 | NUR ---
HR REMAINS 130'S - 170'S, METOPROLOL ADMINISTERED. BP 88/65, MAP 73, PRECEDEX DECREASED TO 0.4MG.KG.HR. PT DROWSY, WAKES EASILY TO VERBAL STIMULI.
--- NOTE | 2018-10-29 17:32 | NUR ---
PT DROWSY WITH PRECEDEX 0.4MCG/KG/HR, WAKES EASILY TO VERBAL STIMULI. DR. ELLIS AND RT AT BEDSIDE, DR AWARE OF PT'S INCREASED WORK OF BREATHING, HR, NEW ORDERS RECEIVED.
--- NOTE | 2018-10-29 17:55 | NUR ---
1755: HR 140'S, OTHER VSS. VENT SETTINGS AC/PC 16, P 22, T 0.72, PEEP 5, FIO2 30%. PTS RR 21, Vt 600'S, SPO2 98%. AMIODARONE BOLUS INFUSING PER ORDERS, WILL INITIATE DRIP AFTER BOLUS IS COMPLETED. PT AWAKE AND ALERT, UPSET, NODS YES WHEN ASKED IF SCARED. PT REASSURED.
[2018-10-29 18:14] LABS: Phosphorus, Blood 2.3 mg/dL (2.5-4.9); Potassium, Blood 3.6 mmol/L (3.5-5.5)
--- NOTE | 2018-10-29 18:37 | NUR ---
PT RESTING QUIETLY IN BED AT THIS TIME, REPORTS SOB HAS IMPROVED, WORK OF BREATHING HAS DECREASED. LS CTA, RR 19, Vt 500'S, SPO2 96% ON NEW VENT SETTINGS. AMIODARONE INFUSING PER ORDERS 1MG/MIN, HR 120'S. BP 106/71, PRECEDEX AT 0.4MG/KG/HR. TF TUBING CHANGED, CONTINUES TO INFUSE AT 60ML/HR PER ORDERS. PT REPOSITIONED, ATTENDS CHANGED FOR [facility]. PT DENIES DISCOMFORT, REPORT TO ONCOMING SHIFT.
--- NOTE | 2018-10-29 22:02 | NUR ---
ASSUMING CARE RECEIVED PT REPORT FROM SARWAT GALDAMEZ. PT REMAINS VENTED VIA TRACH AT THIS TIME VENT IS SET TO PC SETTING WITH PC 16, PRESSURE 22, T .72, PEEP 5, FIO2 30%. PT SPO2 IS MAINTAINING IN THE 90'S AT THIS TIME. PT HAS REQUIRED FREQUENT SUCTIONING AND HAS A LARGE AMOUNT OF THIN TANNISH SECRETIONS. PT IS ABLE TO FOLLOW COMMANDS AND RESPOND WITH NODS. PT ATTEMPTS TO MOUTH WORDS BUT IS VERY DIFFICULT TO UNDERSTAND. PT IS RECEIVING PRECEDEX AT 0.4 MCG/KG/HR AT THE TIME CARE ASSUMED. PRECEDEX TITRATED DOWN TO 0.2 MCG/KG/HR SHORTLY AFTER CARE ASSUMED. PT IS RECEIVEING NS AT TKO AND K PHOS AT THIS TIME. PT IS RECEIVING TUBE FEEDING VIA PEG TUBE OF JEVITY 1.5 SOLUTION AT GOAL RATE OF 60ML/HR. PT HAS APPROX 50ML OF RESIDUALS WITH CHECKS. PT HAS A LARGE AMOUNT OF AIR ASPIRATED WITH RESIDUAL CHECKS OF APPROX 140ML. PT IS RECEIVING AMIODIRONE GTT AT 1MG/HR AT THIS TIME, WILL CHANGE RATE TO 0.5MG/HR WHEN APPROPRIATE. PT HAS A AMADOR TEMP PROBE IN PLACE, PT TEMPERATURE APEPARS TO BE FLUCTUATING BETWEEN THE 99 TO 100 RANGE. WILL CONTINUE TO MONITOR TEMPERATURE. ASSUMED CARE OF PT AT THE TIME OF SHIFT REPORT. WILL CONTINUE TO MONITOR PT.
[2018-10-30 04:13] LABS: BASOPHILS ABSOLUTE AUTO 0.02 K/mm3 (0.00-0.23); BASOPHILS PERCENT AUTO 0 % (0-2); Base Excess Venous 0.5 mmol/L; Bicarbonate Venous 24.8 mmol/L (24.0-30.0); EOSINOPHILS ABSOLUTE AUTO 0.15 K/mm3 (0.00-0.68); EOSINOPHILS PERCENT AUTO 2 % (0-6); Hematocrit 24.8 % (37.0-53.0); Hemoglobin 7.9 g/dL (13.5-17.5); IMMATURE GRAN ABSOLUTE AUTO 0.08 K/mm3 (0.00-0.10); IMMATURE GRAN PERCENT AUTO 1 % (0-1); LYMPHOCYTES ABSOLUTE AUTO 1.23 K/mm3 (0.84-5.20); LYMPHOCYTES PERCENT AUTO 14 % (21-46); MONOCYTES ABSOLUTE AUTO 0.51 K/mm3 (0.16-1.47); MONOCYTES PERCENT AUTO 6 % (4-13); Mean Corpuscular HGB 32.6 pg (26.0-34.0); Mean Corpuscular HGB Conc 31.9 g/dL (31.5-36.5); Mean Corpuscular Volume 103 fL (80-100); Mean Platelet Volume 12.2 fL (9.1-12.4); NEUTROPHILS ABSOLUTE AUTO 6.64 K/mm3 (1.96-9.15); NEUTROPHILS PERCENT AUTO 77 % (41-73); PCO2 Venous 42.7 mmHg (38-42); PO2 Venous 98.6 mmHg (38-42); Platelet Count 174 K/mm3 (150-400); RDW Coefficient Variation 14.6 % (11.7-14.2); RDW Standard Deviation 54.6 fL (35.1-46.3); Red Blood Cell Count 2.42 M/mm3 (4.30-5.90); White Blood Cell Count 8.63 K/mm3 (4.00-11.30); pH Blood Venous 7.39 (7.34-7.37)
[2018-10-30 04:30] LABS: Anion Gap 8 mmol/L (6-16); Blood Urea Nitrogen 21 mg/dL (8-24); Bun/Creatinine Ratio 27.9 (12.0-20.0); CO2, Blood 24 mmol/L (21-32); Calcium, Blood 8.1 mg/dL (8.5-10.1); Chloride, Blood 109 mmol/L (98-108); Creatinine, Blood 0.75 mg/dL (0.60-1.20); Glomerular Filtration Rate >60 (60-); Glucose, Blood 110 mg/dL (70-99); Magnesium, Blood 2.1 mg/dL (1.6-2.4); Potassium, Blood 3.5 mmol/L (3.5-5.5); Sodium, Blood 141 mmol/L (136-145)
[2018-10-30 06:07] LABS: Hematocrit 25.8 % (37.0-53.0); Hemoglobin 8.2 g/dL (13.5-17.5)
--- NOTE | 2018-10-30 07:06 | NUR ---
SHIFT SUMAMRY NOTE PT REMAINS VENTED VIA TRACH AT THIS TIME. VENT SETTINGS WERE CHANGED OVER NIGHT DUE TO REDUCED TIDAL VOLUMED AND INCREASED RESPIRATORY RATE. VENT SETTINGS CHANGED BY RT TO AC 16, TV 450, FIO2 25%, PEEP 5. PT HAS MAINTAINED SPO2 IN THE 90'S. PT HAS HAD COPIOUS THIN TANNISH SECRETIONS SUCTIONED THROUGH THE NIGHT. PT NOTED TO HAVE SCANT BLOODY DRAINAGE AROUND TRACH SITE. PT PROVIDED FENTANYL X3 TIMES THROUGH THE SHIFT DUE TO TRACH DISCOMFORT AND INCREASED RESP RATE AND ELEVATED BP. FENTANYL APPEARED TO BE EFFECTIVE IN MANAGING PAIN, BP AND RESP RATE. PT HAD APPROX 350ML OF SARAH URINE OUTPUT FROM AMADOR CATH OVERNIGHT. PT HAD X2 BM'S, BM'S WERE LOOSE AND BROWN IN COLOR, NO SIGHNS OF GI BLEED NOTED IN EITHER BM. WITH MORNING LABS PT HGB WAS NOTED TO BE 7.9. DR ELLIS CALLED AND INFORMED OF DROP OF H/H, ORDER RECEIVED TO PERFORM REDRAW. HGB WITH REDRAW WAS NOTED TO BE APPROX 8.2 PT REMAINS ON AMIODIRONE GTT, RATE REDUCED TO 0.5 AT APPROX 0000. PT HR HAS REMAINED IN THE 100-120S THROUGH THE NIGHT. PT BP HAS ELEVATED AT TIMES INTO THE 150-160'S WITH INCREASED AGITATION OR RESPIRATORY RATE. PT BP HAS MAINTAINED IN THE 100-120'S THROUGH MOST OF THE NIGHT. PT CONTINES TO RECEIVE TUBE FEEDING OF VITAL HIGH SOLUTION AT GOAL RATE OF 60ML/HR. PT CONTINUES TO RECEIVE NS AT TKO AND PRECEDEX GTT. PRECEDEX WAS INCREASED TO 0.7MCG/KG/HR OVER NIGHT. [facility]
--- NOTE | 2018-10-30 08:05 | NUR ---
0700: CARE ASSUMED, ASSESSMENT COMPLETED, PT ALERT AND ORIENTED, FOLLOWING COMMANDS, APPROPRIATE. VENT SETTINGS AC 16, Vt 450, PEEP 5, FIO2 25%, PT'S RR 30'S-40'S, SPO2 >90%, Vt'S 500'S. PT'S HR 100-120 AFIB. PT'S ABDOMEN IS DISTENDED AND FIRM, PT REPORTS DIFFUSE ABD TENDERNESS UPON PALPATION, REPORTS THIS IS AN ONGOING ISSUE. DENIES NAUSEA. TF RESIDUAL 250ML, SIGNIFICANT AIR REMOVED FROM STOMACH DURING RESIDUAL CHECK. ABD REMAINS FIRM, NO BRUISING NOTED TO FLANKS OR BACK. TRACH SUCTIONED, TRACH INSERTION SITE WITHOUT S/SX INFECTION, SMALL AMOUNT OF DRIED BLOOD PRESENT. PEG TUBE DRESSING CDI, NO S/SX INFECTION NOTED AT INSERTION SITE. RT AT BEDSIDE. 0800: PT RESTING WITH EYES CLOSED, RR 30'S, HR 120-150'S.
--- NOTE | 2018-10-30 09:52 | NUR ---
0915: DR. HENAOTRATE IN TO SEE PT, IS AWARE OF LAB RESULTS AND ABDOMINAL DISTENTION/DISCOMFORT. 0950: PT REPOSITIONED, ORAL CARE AND T TUBE SUCTIONING COMPLETED. RR 40'S, RT AT BEDSIDE TO CHANGE VENT SETTINGS. PT HR 100-120'S AT THIS TIME, ABD REMAINS DISTENDED AND FIRM, PT REPORTS PAIN ONLY WITH PALPATION. NEW VENT SETTINGS AC/PC RATE 16, P 22, T 0.75, SPO2 25%, PEEP 5. PT'S RR 20, Vt 500'S, SPO2 96%. TV ON PER PT REQUEST, PT DENIES OTHER NEEDS.
--- NOTE | 2018-10-30 11:49 | NUR ---
ABD XRAY COMPLETED PER ORDERS. PT RESTING IN BED AT THIS TIME WITH EYES CLOSED, HR 100-120, OTHER VSS. PT TOLERATING AC/PC VENT SETTING WELL, NO CHANGES MADE AT THIS TIME. PT HAS BEEN TRYING TO COMMUNICATE WITH STAFF, UNABLE TO WRITE LEGIBLY, UNSUCCESSFUL IN USING COMMUNICATION BOARD. PT DENIES PAIN OR DISCOMFORT, ORAL SWABS GIVEN FOR THIRST, AMADOR DRAINING, ATTENDS CLEAN, VSS. WILL CONTINUE TO MONITOR.
--- NOTE | 2018-10-30 13:27 | NUR ---
PT ANXIOUS, REPEATEDLY ASKING FOR GLASSES. NO GLASSES IN ROOM, PT INSISTENT THAT THEY ARE IN LINEN CUPBOARD. RR 40'S, RT NOTIFIED, VENT SETTINGS CHANGED TO AC 16, VT 450, FIO2 25%, PEEP 5. FENTANYL ADMINISTERED.
--- NOTE | 2018-10-30 13:36 | NUR ---
AFTER FENTANYL RR 30, PT RESTING WITH EYES CLOSED, HR 110'S.
[2018-10-30 15:14] LABS: Hemoglobin 8.4 g/dL (13.5-17.5)
--- NOTE | 2018-10-30 15:27 | NUR ---
1325: PT HAS BEEN ANXIOUS ON AND OFF T/O DAY, IS ANXIOUS AGAIN AT THIS TIME. NODS YES WHEN ASKED IF SOB, RT AT BEDSIDE FOR NEB TREATMENT. LS TIGHT AND DIMINISHED T/O, RR 40'S, BP ELEVATED, HR 120'S. PT MOVING HEAD BACK AND FORTH, EYES WIDE, TRACH INSERTION SITE OOZING BLOOD. PRECEDEX INFUSION CONTINUES AT 0.7MCG/KG/HR, PROPOFOL INFUSION INITIATED AT 10MCG/KG/HR AT THIS TIME, FOR ANXIETY AND TO PROTECT TRACH SITE. 1345: PT REMAINS ANXIOUS, BP 172/97, HR 120'S, RR 30'S-40'S, PROPOFOL INCREASED TO 15MCG/KG/HR. APPROXIMATELY 450-500ML AIR REMOVED FROM PT'S STOMACH, TF RESIDUAL 160ML.
--- NOTE | 2018-10-30 17:20 | NUR ---
1655: PT SLEEPING, BRIEFLY OPENS EYES TO VERBAL STIMULI, DOES NOT FOLLOW COMMANDS. RR 20'S, Vt' 400'S, SPO2 >95%. HR 120'S, BP 86/66, PRECEDEX DECREASED TO 0.4MCG/KG/HR. VENT SETTINGS AC 16, vT 450, FIO2 35%, PEEP 5. 1720: HR 100-120, BP 89/65, MAP 73. RR 20'S, Vt'S 400'S. PT OPENS EYES SPONTANEOUSLY AT THIS TIME, FOLLOWS COMMANDS, REPORTS INCREASED COMFORT. NO CHANGES MADE TO GTTS OR VENT SETTINGS.
--- NOTE | 2018-10-30 18:17 | NUR ---
PT RESTING IN BED WATCHING TV, IS CALM AND COOPERATIVE, FOLLOWING DIRECTIONS. HR 110-130, BP 118/88, AMIODARONE GTT SHUT OFF AT THIS TIME PER ORDERS, METOPROLOL ADMINISTERED. VENT SETTINGS, PRECEDEX GTT, AND PROPOFOL GTT UNCHANGED. PT DENIES NEEDS AT THIS TIME, DENIES DISCOMFORT.
--- NOTE | 2018-10-30 18:24 | NUR ---
PT REPOSITIONED AT THIS TIME, VSS. PT NOT UP TO CHAIR TODAY D/T RESPIRATORY STATUS CHANGES AND ANXIETY. PRECEDEX 0.4MCG, PROPOFOL 15MCG, TF 60ML/HR, AMIODARONE OFF. VENT SETTINGS AC 16, Vt 450, FIO2 35%, PEEP 5. SPO2 100%, RR 20'S, Vt 400-500'S. PT DENIES C/O AT THIS TIME, REPORT TO ONCOMING SHIFT.
--- NOTE | 2018-10-30 21:12 | NUR ---
ASSUMING CARE RECEIVED PT REPORT FROM SARWAT GALDAMEZ. PT IS ALERT AND IS ABLE TO COMMUNICATE WITH NODS. PT SOMETIMES ATTEMPTS TO COMMUNICATE BY MOUTHING WORDS, BUT IS VERY DIFFICULT TO UNDERSTAND. PT IS ABLE TO FOLLOW COMMANDS, AND RESPONSES SEEM TO BE APPROPRIATE. PT IS RECEIVING PRECEDEX AT 0.4MCG/KG/HR AND PROPOFOL AT 15MCG/KG/MIN FOR ANXIETY. PT IS CALM AT THIS TIME. PER REPORT PT WILL BECOME ANXIOUS AT TIMES WITH INCREASED RESPIRATORY RATE AND DECREASED 02 SATURATIONS. PT APPEARS TO BE CALM AT THIS TIME ON CURRENT GTT'S. PT REMAINS VENTED VIA TRACH. VENT SETTINGS AT THIS TIME ARE AC 16, TV 450, FIO2 35% AND PEEP 5. PT SPO2 IS IN THE MID TO HIGH 90'S AT THIS TIME. SOME SCANT BLOOD DRAINAGE NOTED AROUND TRACH SITE. TRACH SITE CLEANED AND TRACH CARE PERFORMED. INSTRUCTIONS RECEIVED FROM DR. ELLIS TO HOLD LOVENOX DUE TO BLOODY DRAINAGE. 2100 DOSE OF LOVENOX HELD PER INSTRUCTIONS. PT IS RECEIVEING TUBE FEEDING OF JEVITY 1.5 SOULTION AT GOAL RATE OF 60ML/HR VIA PEG TUBE. PT BOWEL TONES APPEAR TO BE TYMPANIC AT TIMES. APPROX 150 CC OF GAS/AIR REMOVED VIA PEG TUBE WITH RESIDUAL CHECKS. PT HAD APPROX 150ML OF TUBE FEED RESIDUALS WELL. PT HAS AMADOR TEMP PROBE IN PLACE. INSTRUCTIONS RECEIVED FROM DR. ELLIS TO PERFORM BLADDER SCAN DUE TO LOW OUTPUT ON PREVIOUS SHIFT. BLADDER SCAN PERFORMED INSTRUCTED WITH 0 CC IN BLADDER PER SCAN. PT URINE IS DARK SARAH IN COLOR. PT IS RECEIVING NS AT TKO. PT IS IN A-FIB AT THIS TIME WITH HR IN THE 100-120'S. BP IS IN THE 100'S SYSTOLIC AT THIS TIME. ASSUMED CARE OF PT AT THE TIME OF SHIFT REPORT. WILL CONTINUE TO MONITOR PT.
[2018-10-31 03:44] LABS: BASOPHILS ABSOLUTE AUTO 0.02 K/mm3 (0.00-0.23); BASOPHILS PERCENT AUTO 0 % (0-2); EOSINOPHILS ABSOLUTE AUTO 0.33 K/mm3 (0.00-0.68); EOSINOPHILS PERCENT AUTO 4 % (0-6); Hematocrit 24.9 % (37.0-53.0); Hemoglobin 7.9 g/dL (13.5-17.5); IMMATURE GRAN ABSOLUTE AUTO 0.09 K/mm3 (0.00-0.10); IMMATURE GRAN PERCENT AUTO 1 % (0-1); LYMPHOCYTES ABSOLUTE AUTO 0.93 K/mm3 (0.84-5.20); LYMPHOCYTES PERCENT AUTO 11 % (21-46); MONOCYTES ABSOLUTE AUTO 0.44 K/mm3 (0.16-1.47); MONOCYTES PERCENT AUTO 5 % (4-13); Mean Corpuscular HGB 33.2 pg (26.0-34.0); Mean Corpuscular HGB Conc 31.7 g/dL (31.5-36.5); Mean Corpuscular Volume 105 fL (80-100); Mean Platelet Volume 11.7 fL (9.1-12.4); NEUTROPHILS ABSOLUTE AUTO 6.66 K/mm3 (1.96-9.15); NEUTROPHILS PERCENT AUTO 79 % (41-73); Platelet Count 172 K/mm3 (150-400); RDW Coefficient Variation 14.6 % (11.7-14.2); RDW Standard Deviation 55.5 fL (35.1-46.3); Red Blood Cell Count 2.38 M/mm3 (4.30-5.90); White Blood Cell Count 8.47 K/mm3 (4.00-11.30)
[2018-10-31 04:01] LABS: Anion Gap 5 mmol/L (6-16); Blood Urea Nitrogen 21 mg/dL (8-24); CO2, Blood 28 mmol/L (21-32); Calcium, Blood 8.1 mg/dL (8.5-10.1); Chloride, Blood 107 mmol/L (98-108); Creatinine, Blood 0.72 mg/dL (0.60-1.20); Glomerular Filtration Rate >60 (60-); Glucose, Blood 119 mg/dL (70-99); Sodium, Blood 140 mmol/L (136-145)
--- NOTE | 2018-10-31 06:48 | NUR ---
SHIFT SUMMARY NOTE PT REMAINS INTUBATED VIA TRACH. PT VENT SETTINGS HAVE REMAINED UNCHANGED THROUGH THE NIGHT AND ARE AC 16, TV 450, FIO2 30% AND PEEP 5. PT SPO2 HAS MAINTAINED IN THE MID TO HIGH 90'S. PT CONTINUES TO HAVE COPIOUS THIN SECRETIONS. PT HAS HAD LESS BLOODY DRAINAGE FROM TRACH SITE OVERNIGHT AFTER LOVENOX WAS HELD. PT CONTINUES TO RECEIVE TUBE FEEDING OF JEVITY 1.5 AT GOAL RATE OF 60ML/HR. PT HAS HAD RESIDUALS IN RANGING FROM 30-150ML. PT CONTINUES TO HAVE A LARGE AMOUNT OF GAS/AIR FROM PEG TUBE. BOWEL TONES ARE OCCASIONALLY TYMPANIC. PT HR HAS MAINTAINED IN THE 100-120 RANGE, PT REMAINS IN A-FIB. PT BP HAS MAINTAINED IN THE 100'S THROUGH THE NIGHT THOUGH WILL INCREASE TO THE 140'S RANGE AT TIMES WITH INCREASED AGITATION. PT IS RECEIVING NS AT TKO, PROPOFOL AT 25MCG/KG/MIN, AND PRECEDEX AT 0.4MCG/KG/HR, FOR AGITATION AND INCREASED RESP RATE. PT HAD NO BP'S OVERNIGHT. WITH MORNING LABS PT HGB WAS NOTED TO BE 7.9, DR ELLIS CALLED AND INFORMED. ORDER RECEIVED TO PERFORM ABDOMINAL AND PELVIS CT WITHOUT CONTRAST. PT TRANSPORTED TO CT WITH ASSISTANCE FROM RT AND [facility]. WILL REPORT OFF TO [facility] DAY SHIFT NURSE.
--- NOTE | 2018-10-31 09:28 | NUR ---
BEGINNING OF SHIFT Assumed care at 0700. Report received from Jong FAM. Pt alert. Follows commands. Executive Sales Manager equal, but weak. Pt nods head "no" when asked if he is having pain. Opens mouth as instructed during oral care. Large amount of secretions suctioned from oropharynx. Moist mucous membranes free of plaques, pt does not have teeth. Pt has 8.0 cm trach, inner cannula changed this morning. Connected to ventilator PEEP 5, AC 16, TV 450, FiO2 30%. Sutures and dried, red drainage noted to trach site. Pt has peg tube with continuous feeding. Rate changed to 55 mL/hr per new orders. Scant amount of serosanguinous drainage noted to peg site. Pt grimaces with palpation to RLQ. Abdomen distended and typmanic. No BM yet this shift. Temp [place] in place. Pt afebrile.
--- NOTE | 2018-10-31 11:54 | NUR ---
UPDATE Pt transferred to recliner from bed using ceiling lift. Physical therapist, Mandi, working with patient at this time. Pt awake, following commands. Providing variable facial expressions while staff works with patient. Dr Mckinley in to see patient. Update given. Orders given for [place] consult and change in rate and frequency for PEG tube flushes. OK to give lovenox as patient is no longer bleeding from trach site. Attempt to decrease rate of propofol. Pt did not tolerate this well. Dr Lujan in room at this time. Provider updated.
--- NOTE | 2018-10-31 13:25 | NUR ---
RESIDUAL MEASUREMENT 100 mL of residual measured and reinstilled. 100 mL of air aspirated.
--- NOTE | 2018-10-31 16:40 | NUR ---
Spiritual Care initial visit: Mr. Florez was sitting in chair, looking out the window when I visited. He appears frail and weak. He seemed awake and alert. He nods his head 'yes' and 'no.' He is non-alevism. He is satisfied remaining Full Code status. He appears to understand he has a long journey ahead. Mr. Florez nods his head 'yes' when asked about friends, but he does not want anyone contacted. He has a gentle demeanor and responded well to comfort through touch and encouragement. I will remain available.
--- NOTE | 2018-10-31 17:00 | NUR ---
RESIDUAL MEASURMENT 100 mL residual measured and reinstilled. 40 mL air removed.
--- NOTE | 2018-10-31 19:08 | NUR ---
SHIFT SUMMARY At this time, pt is resting in bed. Up in chair for about 5 hours today, using ceiling lift. Tube feedings infusing at 50 mL per hour with 50 mL water flush q6h. Temp noyola remains in place, pt afebrile this shift, draining dark yellow urine with some sediment. No events per heart monitor. Pt did not have BM, therefore fleet enema given. Vent settings unchanged from start of shift. One attempt to lower dose of propofol unsuccessful. Bedside report given to oncoming RNCely.
--- NOTE | 2018-10-31 19:10 | NUR ---
ASSUME CARE": REPORT RECIEVED FROM DEIRDRE FAM AND RODRIGUEZ RAMIREZ RN. MONITOR INTACT SHOWING A FIB. HEART RATE 100'S. OPENS EYES AND NODS HEAD TO SIMPLE YES/NO QUESTIONS. VENT SETTINGS REMAIN AC 16 TV 450 FIO2 30% PEEP 5 RATE 20-26 SPO2 95-97%.LUNG SOUNDS CLEAR UPPER LOBES WITH DECREASED SOUNDS IN THE BASES. 50ML TUBE FEED REFED WITH ORAL CARE. ABDOMEN SOFT WITH BOWEL SOUNDS FOUR QUADS. . PAS TO LOWER EXTREMITIES. CONTINUE TO MONITOR AND REPORT CHANGE IN PATIENT CONDITINON
--- NOTE | 2018-10-31 21:03 | NUR ---
LARGE LIQUID INCONTINENT YELLOW/BROWN STOOL COMPLETE BED BATH AND LINEN CHANGE COMPLETED. 50ML TUBE FEED REFED WITH ORAL CARE CONTINUE TO MONITOR AND REPORT CHANGE IN PATIENT CONDITION
--- NOTE | 2018-10-31 22:15 | NUR ---
SPUTUM SPECIMEN COLLETED BY RT ADAMS CONTINUE TO MONITOR AND REPORT CHANGE IN PATIENT CONDITION
--- NOTE | 2018-11-01 06:23 | NUR ---
SHIFT SUMMARY: REMAINS SEDATED, VENT SETTINGS AC 16, TV 450, FIO2 30% PEEP 5 RATE 30'S-40'S SPO2 85-97% LUNG SOUNDS CLEAR UPPER LOBES AND DECREASED IN THE BASES. MINIMAL RESIDUALS REFED WITH ORAL CARE FROM TUBE FEEDS INFUSING AT 50ML/HR WHICH IS GOAL. ABDOMEN ROUND WITH BOWEL SOUNDS FOUR QUADS. AMADOR PATENT DRAINING SARAH URINE. PAS TO LOWER EXTREMITIES. GENERALIZED DEPENDENT EDEMA ESPECIALLY TO UPPER EXTREMITIES AND SCROTEM ' SCROTAL SLING IN PLACE AND PILLOW S ELEVATING EXTREMITIES. SKIN DRY /FLAKEY ESPECIALLY TO FEET. CONTINUE TO MONITOR AND REPORT CHANGE IN PATIENT CONDITION. MONITOR INTACT SHOWING A FIB HEART RATE 100'-140'S
--- NOTE | 2018-11-01 07:42 | NUR ---
START OF SHIFT NOTE: RECEIVED REPORT FROM DHRUV RN, ASSUMED CARE, PATIENT IS SLEEPING BUT EASILY AROUSEABLE, ABLE TO NOD AND SHAKE HEAD TO ANSWER SIMPLE QUESTIONS, TRACH IN PLACE AND CONNECTED TO VENTILATOR, SETTINGS ARE 16/5/450/30 %, TRACH COLLAR C/D/I, RT IN TO SEE PATIENT AND PERFORM TRACH CARE, ORAL CARE DONE BY NURSING, LUNG SOUNDS ARE CLEAR BUT DIMINISHED, PATIENT IN A-FIB WITH HR IN 120'S, BLOOD PRESSURE IN 90'S, O2 IN MID TO UPPER 90'S, PROPOFOL INFUSING AT 25 MCG, PRECEDEX AT 0.4 MCG, NS AT TKO, PATIENT HAS BOWEL TONES, PEG TUBE AT LUQ, SKIN AROUND PEG C/D/I, TUBE FEEDING AT GOAL OF 50 CC'S/HR WITH 50 CC WATER FLUSH EVERY 6 HOURS, PATIENT TOLERATING WELL, ALYSSIA PICC, ALL PORTS FLUSH WELL AND HAVE GOOD BLOOD RETURN, SKIN APPEARS DRY, PEDAL PULSES PRESENT, CALL LIGHT IN REACH, WILL CONTINUE TO MONITOR.
--- NOTE | 2018-11-01 09:47 | NUR ---
DR. BOWLES AND DR. ELLIS IN TO SEE PATIENT, NO NEW ORDERS AT THIS TIME, BUT PATIENT IS ACCEPTED TO [facility] IN [place], TRANSFER TO BE DETERMINED.
--- NOTE | 2018-11-01 09:52 | NUR ---
LUCIA, MENTAL HEALTH ANIMAL COP, IN TO SEE PATIENT, NO NEW ORDERS RECIEVED.
--- NOTE | 2018-11-01 11:15 | NUR ---
DR. ELLIS TO CALL [facility] AND DISCUSS TRANSFER OF PATIENT.
--- NOTE | 2018-11-01 11:28 | NUR ---
SUSAN ESTES, CALLED TO CHECK ON PATIENT, UPDATE ON PATIENT STATUS, WILL KEEP UPDATE TO POSSIBLE TRANSFER TO [facility].
--- NOTE | 2018-11-01 12:17 | NUR ---
PATIENT ON WEANING TRIAL, PROPOFOL OFF, PATIENT RECEIVED ORDERED TRAZODONE PRIOR TO STARTING WEANING TRIAL, APPEARS TO BE DOING WELL AT THIS TIME, CALL LIGHT IN REACH, WILL CONTINUE TO MONITOR.
--- NOTE | 2018-11-01 13:08 | NUR ---
PATIENT CONTINUES OFF A/C, ON PRESSURE SUPPORT, DOING WELL, PATIENT ANXIETY IS MINIMAL, CALL LIGHT IN REACH, WILL CONTINUE TO MONITOR.
--- NOTE | 2018-11-01 15:12 | NUR ---
VENTILATOR SETTINGS CHANGED BACK TO A/C MODE, PATIENT TOLERATED WEANING TRIAL EXTREMELY WELL, PROPOFOL REMAINS OFF, PRECEDEX DECREASED TO 0.2, PATIENT RECEIVING EFFEXOR AND TRAZODONE VIA PEG TUBE AND MEDICATIONS APPEAR EFFECTIVE, PATIENT IS ALSO ABLE TO RAISE RIGHT ARM, AND USE COMMUNICATION BOARD TO POINT, CALL LIGHT IN REACH, WILL CONTINUE TO MONITOR.
--- NOTE | 2018-11-01 17:38 | NUR ---
SHIFT SUMMARY NOTE: PATIENT CONTINUES ON MECHANICAL VENTILATION, WEANING TRIAL TODAY FOR ABOUT 4-6 HOURS AFTER MEDICATIONS WERE CHANGED, PATIENT TOLERATED EXTREMELY WELL, PATIENT APPEARS ALERT AND ORIENTED, ABLE TO NOD AND SHAKE HEAD TO ANSWER SIMPLE QUESTIONS, TRACH IN PLACE, VENTILATOR SETTINGS ARE 16/5/450/30 %, FREQUENT SUCTIONING OF MODERATE AMOUNTS OF THICK COKER SPUTUM, ALSO REQUIRES ORAL SUCTIONING, LUNG SOUNDS CLEAR BUT DIMINISHED, CONTINUE TO BE IN A-FIB WITH HR BETWEEN LOW 100'S TO 130'S, DR. ELLIS AWARE, RECEIVES METOPROLOL VIA PEG TUBE, BLOOD PRESSURES ARE IN 140'S, PEG TUBE WORKING WELL, SURROUNDING SKIN C/D/I, AMADOR CATHETER WITH TEMP PROBE, PATIENT AFEBRILE DURING THIS SHIFT, NO BM DURING DAY SHIFT, SCROTAL EDEMA, SCROTUM AND PENIS PLACED IN SLING TO KEEP ELEVATED, ALL EXTREMITIES ARE ELEVATED WELL, PATIENT WORKED WITH PT AND DID EXTREMELY WELL, ABLE TO POINT OUT NEEDS ON PICTURE BOARD, TOO WEAK TO WRITE AT THIS POINT BUT NOW ABLE TO LIFT BOTH ARMS TO FACE, MENTAL HEALTH IN TO SEE PATIENT AND MEDICATIONS WERE CHANGED, PATIENT WAS PLACED ON TRAZODONE AND WAS OBSERVED TO HAVE LESS ANXIETY DURING WEANING TRIAL, PROPOFOL WAS TURNED OFF DURING TRIAL AND CONTINUES TO BE OFF, PRECEDEX DECREASED TO 0.2 MCG, PATIENT DID WELL AND CONTINUES TO DO WELL, FOR DETAILS SEE SHIFT ASSESSMENT DOCUMENTATION AND NURSES NOTES, CALL LIGHT IN REACH, WILL CONTINUE TO MONITOR AND GIVE REPORT TO ONCOMING REFORMATORY ATTENDANT.
--- NOTE | 2018-11-01 19:15 | NUR ---
ASSUME CARE; report recieved FROM ITZ OFF GOING RN. MONITOR INTACT SHOWING A FIB . HEART RATE 110'S-120'S. DENIES DISCOMFORT. LUNG SOUNDS CLEAR UPPER LOBES WITH DECREASED SOUNDS IN THE BASES. ABDOMEN SOFT WITH BOWEL SOUNDS FOUR QUADS. AMADOR PATENT DRAINING SARAH URINE. TF RESIDUAL OF 5ML REFED WITH ORAL CARE. PAS TO LOWER EXTRMITIES. PILLOWS ELEVATING ALL EXTREMITIES SECONDARY TO GENERALIZED DEPENDENT EDEMA ESPECIALLY SCROTAL. MORE AWAKE AND ALERT THIS SY INTERACTS WITH STAFF, SMILES AND GESTURES. CONTINUE TO MONITOR AND REPORT CHANGE IN PATIENT CONDITION.
--- NOTE | 2018-11-01 19:28 | NUR ---
Review of patients symptoms with nursing and plan of care. Will continue to follow for supportive care.
[2018-11-02 05:09] LABS: BASOPHILS ABSOLUTE AUTO 0.03 K/mm3 (0.00-0.23); BASOPHILS PERCENT AUTO 0 % (0-2); EOSINOPHILS ABSOLUTE AUTO 0.14 K/mm3 (0.00-0.68); EOSINOPHILS PERCENT AUTO 1 % (0-6); Hematocrit 26.1 % (37.0-53.0); Hemoglobin 8.1 g/dL (13.5-17.5); IMMATURE GRAN ABSOLUTE AUTO 0.16 K/mm3 (0.00-0.10); IMMATURE GRAN PERCENT AUTO 2 % (0-1); LYMPHOCYTES ABSOLUTE AUTO 0.83 K/mm3 (0.84-5.20); LYMPHOCYTES PERCENT AUTO 8 % (21-46); MONOCYTES ABSOLUTE AUTO 0.49 K/mm3 (0.16-1.47); MONOCYTES PERCENT AUTO 5 % (4-13); Mean Corpuscular HGB 31.8 pg (26.0-34.0); Mean Platelet Volume 12.4 fL (9.1-12.4); NEUTROPHILS ABSOLUTE AUTO 8.67 K/mm3 (1.96-9.15); NEUTROPHILS PERCENT AUTO 84 % (41-73); NRBC ABSOLUTE 0.02 K/mm3 (0.00-0.02); NRBC Auto 0.2 /100 WBC (0.0-0.2); Platelet Count 159 K/mm3 (150-400); RDW Coefficient Variation 14.6 % (11.7-14.2); RDW Standard Deviation 53.9 fL (35.1-46.3); Red Blood Cell Count 2.55 M/mm3 (4.30-5.90); White Blood Cell Count 10.32 K/mm3 (4.00-11.30)
[2018-11-02 05:10] LABS: Mean Corpuscular Volume 102 fL (80-100)
[2018-11-02 05:38] LABS: Anion Gap 6 mmol/L (6-16); Blood Urea Nitrogen 16 mg/dL (8-24); Bun/Creatinine Ratio 23.4 (12.0-20.0); CO2, Blood 27 mmol/L (21-32); Calcium, Blood 8.4 mg/dL (8.5-10.1); Chloride, Blood 107 mmol/L (98-108); Creatinine, Blood 0.68 mg/dL (0.60-1.20); Glomerular Filtration Rate >60 (60-); Glucose, Blood 145 mg/dL (70-99); Magnesium, Blood 2.1 mg/dL (1.6-2.4); Phosphorus, Blood 2.8 mg/dL (2.5-4.9); Potassium, Blood 4.1 mmol/L (3.5-5.5); Sodium, Blood 140 mmol/L (136-145)
--- NOTE | 2018-11-02 10:09 | NUR ---
0730: CARE ASSUMED, ASSESSMENT COMPLETED. PT RESTING IN BED WATCHING TV, AWAKE AND ALERT, FOLLOWING COMMANDS. PRECEDEX 0.7MCG/KG/HR, TF JEVITY 1.5 50ML/HR WITH 50ML WATER FLUSHES Q6H PER ORDERS. SMALL AMOUNT OF CLEAR THIN SECRETIONS SUCTIONED FROM T TUBE, LS CLEAR, DIM IN BASES. VENT SETTINGS PS 20/5, FIO2 25%. PT'S Vt 500'S, RR 20-30, SPO2 95%. PT AFEBRILE, HR 130'S, OTHER VSS. 0800: ORAL CARE COMPLETED, PT REPOSITIONED IN BED. RESIDUAL 10ML, 240ML AIR REMOVED FROM STOMACH VIA GTUBE. DRESSING TO GTUBE CDI, NO S/SX INFECTION NOTED AT INSERTION SITE. 1000: DISCUSSED PLAN FOR TRANSFER TO [facility] TO DC JAMEY JUAREZ. PRECEDEX INFUSING AT 0.4MCG/KG/HR, MAP 90. WILL ATTEMPT TO WEAN OFF OF PRECEDEX TODAY FOR [facility] TRANSFER.
[2018-11-02] MEDS ORDERED: ACET325 PT (11:08)
[2018-11-02] MEDS ORDERED: BISA10S PR (11:09)
[2018-11-02] MEDS ORDERED: ATROPINE 0.01%-10 ML SL (11:09)
[2018-11-02] MEDS ORDERED: FOLI1 PT (11:09)
[2018-11-02] MEDS ORDERED: HYDR10 IV (11:11)
[2018-11-02] MEDS ORDERED: Culturelle1 CAP PT (11:12)
[2018-11-02] MEDS ORDERED: Milk Of Ma400 MG/5 M PO (11:13)
[2018-11-02] MEDS ORDERED: METO5A PO (11:13)
[2018-11-02] MEDS ORDERED: METO50 PT (11:14)
[2018-11-02] MEDS ORDERED: Nicoderm Cq1 EACH TOP (11:14)
[2018-11-02] MEDS ORDERED: PANT40 PO (11:15)
[2018-11-02] MEDS ORDERED: Transderm-Scop1 EACH TD (11:15)
[2018-11-02] MEDS ORDERED: TRAZ50 PO (11:16)
--- NOTE | 2018-11-02 12:01 | NUR ---
1030: TRANSFER TO [facility] BEING COORDINATED. 1130: INNER CANNULA CHANGED, DRESSING TO PICC RIGHT UPPER ARM CHANGED AT THIS TIME. TRACH TUBE SUCTIONED.
--- NOTE | 2018-11-02 12:41 | NUR ---
REPORT CALLED TO [facility] AT 1230. PT ANXIOUS, LS TIGHT, SPO2 88%, RR 40, Vt 300'S. HR 150'S, BP 204/109. METOPROLOL ADMINISTERED PER ORDERS, RT AT BEDSIDE FOR ILANA TOMLINSON.
--- NOTE | 2018-11-02 13:00 | NUR ---
TRAZODONE ADMINISTERED PER ORDERS. BP 149/92, HR 131, RR 32, Vt 400'S. PT RESTING CALMLY IN BED, DENIES C/O AT THIS TIME. LS CLEAR, NO WHEEZING NOTED. VENT SETTINGS AC 16, Vt 450, PEEP 5, FIO2 30%. PT TOLERATING SETTINGS WELL.
--- NOTE | 2018-11-02 13:25 | NUR ---
DULCOLAX AND TRAZODONE ADMINISTERED PER ORDERS PT RESTING QUIETLY AT THIS TIME, VSS. HR 133, BP 135/74. RR 32, Vt 400'S, SPO2 100%. ATTENDS ON, AMADOR EMPTIED, NS AND TF INFUSIONS DC'D FOR TRANSFER. PRECEDEX REMAINS AT 0.7MCG.
--- NOTE | 2018-11-02 13:54 | NUR ---
1354: PT TO [facility] AT THIS TIME VIA [facility] ON THE VENT AC 16, Vt 450, PEEP 5, FIO2 30%, PRECEDEX INFUSING AT 0.7MCG/KG/HR. VSS UPON DEPARTURE, PT CALM AND COOPERATIVE, FOLLOWING COMMANDS. REPORT TO EMS PERSONNEL.
== END 2018-11-02 13:58 | DRG 4 ==
LOC: ER 09:32 → PCU 12:22 → ICUW 12:22 → PCU 14:25 → ICUW 10-10 19:49
PROVIDERS: Emergency Medicine; Family Medicine; Hospitalist; Internal Medicine; Internal Medicine Critical Care Medicine; Internal Medicine Pulmonary Disease; Nurse Practitioner Acute Care; ADMIT Internal Medicine
PROC: 5A1955Z Respiratory Ventilation, Greater than 96 Consecutive Hours (ICD-10-PCS; principal; 2018-10-09)
PROC: 0BH17EZ Insertion of Endotracheal Airway into Trachea, Via Natural or Artificial Opening (ICD-10-PCS; 2018-10-09)
PROC: 0DH63UZ Insertion of Feeding Device into Stomach, Percutaneous Approach (ICD-10-PCS; 2018-10-23)
PROC: 0B113F4 Bypass Trachea to Cutaneous with Tracheostomy Device, Percutaneous Approach (ICD-10-PCS; 2018-10-27)
DX: A41.9 Sepsis, unspecified organism (principal); K85.20 Alcohol induced acute pancreatitis without necrosis or infection; J96.01 Acute respiratory failure with hypoxia; J69.0 Pneumonitis due to inhalation of food and vomit; E43 Unspecified severe protein-calorie malnutrition; F10.230 Alcohol dependence with withdrawal, uncomplicated; K56.7 Ileus, unspecified; K86.0 Alcohol-induced chronic pancreatitis; R65.20 Severe sepsis without septic shock; F43.10 Post-traumatic stress disorder, unspecified; J44.9 Chronic obstructive pulmonary disease, unspecified; I10 Essential (primary) hypertension; I48.2 Chronic atrial fibrillation; Z79.01 Long term (current) use of anticoagulants; Z93.0 Tracheostomy status; K25.9 Gastric ulcer, unspecified as acute or chronic, without hemorrhage or perforation
CPT/HCPCS: 31500; 31720; 36415; 36556; 36569; 36600; 51702; 70450; 71045; 71046; 74018; 74150; 74160; 74176; 74177; 80048; 80053; 80069; 80202; 81001; 82140; 82330; 82607; 82746; 82803; 82947; 83605; 83690; 83735; 83880; 84100; 84132; 84145; 84443; 84484; 85014; 85018; 85025; 85610; 85730; 87040; 87070; 87077; 87086; 87147; 87185; 87186; 87205; 87493; 93005; 93010; 93306; 94002; 94003; 94640; 94644; 94660; 94760; 94762; 96365; 96366; 96375; 97110; 97162; 97164; 97530; 99285-25; A9270; C1751; C1769; C9113; J0282; J0330; J0360; J0610; J1650; J1940; J1956; J2060; J2250; J2310; J2405; J2543; J2704; J2765; J2920; J3010; J3370; J3411; J3475; J3480; J7030; J7040; J7042; J7050; J7060; J7120; J7512; P9046; Q9967

== ENCOUNTER 2019-01-09 07:46 | Emergency (ER) | payer OTHER, MEDICARE ==
[~2019-01-09] VITALS: Ht 177.8 cm; Wt 79.4 kg
[~2019-01-09 07:46] MED LIST changes: +ACET325 PT; +ALBU90OI61 INH; +ATROPINE 0.01%-10 ML SL; +B-1100 MG PO; +BISA10S PR; +Culturelle1 CAP PT; +FOLI1 PT; +HYDR10 IV; +IBUP600 PO; +MAGOXI400 PO; +MELA3 PO; +METO50 PT; +METO5A PO; +Milk Of Ma400 MG/5 M PO; +Nicoderm Cq1 EACH TOP; +PANT40 PO; +PRAZ1 PO; +STIOLTO RESPIMAT4 GM INH; +STRIVERDI RESPIM4 GM INH; +TRAZ50 PO; +Transderm-Scop1 EACH TD; +VENL150ER PO
== END 2019-01-09 09:25 | disposition left against medical advice (07) ==
LOC: ER 07:46
DX: I48.91 Unspecified atrial fibrillation (principal); F10.20 Alcohol dependence, uncomplicated; Z88.8 Allergy status to other drugs, medicaments and biological substances; Z79.899 Other long term (current) drug therapy; F43.10 Post-traumatic stress disorder, unspecified; J44.9 Chronic obstructive pulmonary disease, unspecified; E78.5 Hyperlipidemia, unspecified; F17.210 Nicotine dependence, cigarettes, uncomplicated
CPT/HCPCS: 71045; 93005; 93010; 99285-25; J7030

== ENCOUNTER 2019-11-16 18:00 | Emergency (ER) | payer OTHER, MEDICARE ==
[~2019-11-16] VITALS: Ht 177.8 cm; Wt 72.6 kg
== END 2019-11-16 18:20 | disposition left against medical advice (07) ==
LOC: ER 18:00
DX: I48.91 Unspecified atrial fibrillation (principal); J44.9 Chronic obstructive pulmonary disease, unspecified; E78.5 Hyperlipidemia, unspecified; F17.210 Nicotine dependence, cigarettes, uncomplicated; Z79.899 Other long term (current) drug therapy
CPT/HCPCS: 99284-25